=== PATIENT | female | born 1995 | race Caucasian/White ===

== ENCOUNTER → 2018-10-02 10:09 | Outpatient (CLI) | payer OTHER, SELFPAY ==
[2018-10-02 12:37] LABS: Absolute Lymphocyte Count 2.26 X10^3/ul (0.83-4.51); Absolute Neutrophil Count 4.6 X10^3/uL (2.0-7.7); Basophil# 0.03 X10^3/uL; Basophil% 0.4 % (0-1); Eosinophil# 0.09 X10^3/uL; Eosinophils% 1.2 % (0-5); Hematocrit 40.1 % (37-47); Hemoglobin 13.2 g/dl (12.0-15.0); Lymphocyte # 2.26 X10^3/ul (4.0); Lymphocyte % 30.1 % (19-41); Mean Corp Hgb Conc 32.9 g/gl (32-36); Mean Corpuscular Hgb 29.3 pg (27.0-32.0); Mean Corpuscular Volume 88.9 fL (81-99); Mean Platelet Vol. 9.9 fl (6.2-12.0); Monocyte# 0.55 X10^3/uL; Monocyte% 7.3 % (0-10); Neutrophil # 4.56 X10^3/uL (2.7-7.7); Neutrophil % 60.7 % (47-70); POSITIVE COUNT NO; POSITIVE DIFFERENTIAL NO; POSITIVE MORPHOLOGY NO; Platelet Count 249 K/mm3 (150-450); RBC Distribution Width CV 12.7 % (11.6-14.6); RBC Distribution Width SD 40.6 fl (35.1-43.9); Red Blood Count 4.51 M/mm3 (4.2-5.4); White Blood Count 7.5 K/mm3 (4.4-11.0)
[2018-10-02 12:45] LABS: ALB/GLOB Ratio 0.9 RATIO (0.9-2.4); AST(SGOT) 18 U/L (15-37); Alanine Aminotransfer ALT/SGPT 28 U/L (13-56); Albumin, Serum 3.5 g/dL (3.2-5.0); Alkaline Phosphatase 66 U/L (45-117); Anion Gap 11 (5-15); BUN 10 mg/dL (7-18); BUN/Creat Ratio 9.8 RATIO (10-20); CRP 6.25 mg/L (0.0-3.0); Calcium,Total 8.8 mg/dL (8.5-10.1); Chloride 106 mmol/L (98-107); Creatinine, Serum 1.02 mg/dL (0.55-1.02); EST Glomerular Filtration Rate 71 mL/min (>60); Est Glom Filt Rate - Afr Amer 86 mL/min (>60); Glucose 91 mg/dL (74-106); Potassium 3.6 mmol/L (3.5-5.1); Protein, Total 7.5 g/dL (6.4-8.2); Rheumatoid Factor < 10.0 IU/mL (<15); Sodium Level 142 mmol/L (136-145)
[2018-10-02 12:56] LABS: Erythrocyte Sedimentation Rate 14 mm/hr (0-20)
[2018-10-04 11:15] LABS: ANTINUCLEAR ANTIBODIES DIRECT Negative (Negative)
[2018-10-08 15:18] LABS: CCP IgG Antibodies 5 units (0-19); HEPATITIS B SURFACE AG Negative (Negative); HLA B27 Negative (.); Hep B Surface Antibodies Non Reactive (.); Hep C Antibodies <0.1 s/co ratio (0.0-0.9)
== END ==
PROVIDERS: Family Provider Family Medicine; PCP Family Medicine; Referring Provider Internal Medicine Rheumatology; Visit Provider Internal Medicine Rheumatology
DX: M06.4 Inflammatory polyarthropathy (principal); F41.9 Anxiety disorder, unspecified; F32.89 Other specified depressive episodes; E03.9 Hypothyroidism, unspecified; Z87.2 Personal history of diseases of the skin and subcutaneous tissue
CPT/HCPCS: 36415; 80053; 81374; 85025; 85652; 86038; 86140; 86200; 86431; 86706; 86803; 87340

== ENCOUNTER 2023-03-24 03:10 | Emergency (ER) | payer MEDICAID, SELFPAY ==
[2023-03-24 03:11] VITALS: PULSE 71; RESP 16; TEMP 36.4; O2SAT 100; BMI 29.9
[2023-03-24] MEDS: 0.9% Normal Saline 1,000 ML 999 ML IV (04:10)
[2023-03-24 04:25] LABS: Absolute Lymphocyte Count 2.83 X10^3/uL (0.83-4.51); Basophil# 0.06 X10^3/uL; Basophil% 0.5 % (0-1); Eosinophils% 0.8 % (0-5); Hematocrit 39.6 % (37-47); Hemoglobin 13.4 g/dL (12.0-15.0); Lymphocyte # 2.83 X10^3/ul (0.83-4.51); Lymphocyte % 21.3 % (19-41); Mean Corp Hgb Conc 33.8 g/dL (32-36); Mean Corpuscular Hgb 29.1 pg (27.0-32.0); Mean Corpuscular Volume 86.1 fL (81-99); Monocyte# 1.15 X10^3/uL; Monocyte% 8.7 % (0-10); NRBC Flagged by Analyzer 0 % (0-5); Neutrophil # 9.04 X10^3/uL (2.7-7.7); Platelet Count 253 K/mm3 (150-450); RBC Distribution Width CV 11.9 % (11.6-14.6); RBC Distribution Width SD 37.7 fl (35.1-43.9); White Blood Count 13.3 K/mm3 (4.4-11.0)
[2023-03-24 04:41] LABS: AST(SGOT) 15 U/L (15-37); Alanine Aminotransfer ALT/SGPT 22 U/L (13-56); Albumin, Serum 3.3 g/dL (3.2-5.0); Alkaline Phosphatase 69 U/L (45-117); Anion Gap 6 (5-15); BUN 10 mg/dL (7-18); BUN/Creat Ratio 12.8 RATIO (10-20); Bilirubin, Direct 0.14 mg/dL (0.00-0.30); Calcium,Total 8.7 mg/dL (8.5-10.1); Chloride 107 mmol/L (98-107); Creatinine, Serum 0.78 mg/dL (0.55-1.02); EST Glomerular Filtration Rate 94 mL/min (>60); Est Glom Filt Rate - Afr Amer 113 mL/min (>60); Estimated Creatinine Clearance 93.55 ml/min; Glucose 103 mg/dL (74-106); Lipase 41 U/L (13-75); Potassium 3.8 mmol/L (3.5-5.1); Protein, Total 7.3 g/dL (6.4-8.2); Sodium Level 137 mmol/L (136-145)
[2023-03-24 05:12] LABS: Mucous, Urine 0 SEEN /hpf (<or=2+)
[2023-03-24 05:21] LABS: Color, Urine Yellow (Yellow); Glucose, Dipstick Normal (Normal); Ketone-Dipstick 15 mg/dl (Negative); Leukocyte Esterase-Dipstick Negative /ul (Negative); Nitrite-Dipstick Negative (Negative); Occult Blood-Urine Negative /ul (Negative); Protein-Dipstick Negative (Negative); Specific Gravity, Urine 1.015 (1.002-1.030); Urine Bilirubin Dipstick Negative (Negative); Urine Clarity Clear (Clear); Urine Urobilinogen Normal (Normal); Urine pH 6.5 (5.0 - 8.0)
[2023-03-24 05:46] LABS: Bacteria 2+ /hpf (None Seen); Red Blood Cells-Urine 0-5 SEEN /hpf (0-5); Squamous Epithelial Cells - UA 0-5 SEEN /hpf (5-10); White Blood Cells 0-5 SEEN /hpf (0-5)
--- NOTE | 2023-03-24 06:00 | EDS_ITS ---
HPI History of Present Illness Chief Complaint: Abd Pain Informant: patient and spouse/S.O. Narrative Narrative: Patient is a 27-year-old female who is a G1, P0 approximately 6 weeks . She states for the last 5 to 7 days she has had generalized abdominal discomfort with bouts of nausea and loose stool/diarrhea. She denies any recent travel outside the country or livestock exposure. She does states she is currently on Keflex secondary to a potential UTI. She denies any known history of ulcerative colitis or Crohn's disease but does state mother has a history of Crohn's. Patient states that she was seen at an outside hospital earlier this week and had a transvaginal ultrasound documenting a within the uterus at approximately 6 weeks gestation. She states her symptoms have persisted however and she is concerned this is her gallbladder who comes in for evaluation. [facility] Medical History (Updated 03/25/23 @ 23:[address] Jaguar Brito, ) Hypothyroid Rheumatoid arthritis Home Medications docusate sodium 100 mg capsule (DOK) 100 mg PO DAILY ##10 02/27/17 [Rx Last Taken Unknown] hydrocodone-acetaminophen 5-325mg 5mg-325mg 1 - 2 tab PO Q4H PRN PRN Pain ##15 02/27/17 [Rx Last Taken Unknown] cephalexin 500 mg capsule 500 mg PO Q12H 03/24/23 [History Last Taken Unknown] levothyroxine 50 mcg tablet (Euthyrox) 50 mcg PO DAILY 03/24/23 [History Last Taken Unknown] Allergy/AdvReac Type Severity Reaction Status Date / Time No Known Allergies Allergy Verified 03/24/23 03:13 Social History Smoking Status: Never smoker [facility] ED Constitutional Constitutional ED: Denies chills or fever(s) ENT ENT ED: Denies sore throat Cardiovascular Cardiovascular: Denies chest pain Respiratory/Chest Respiratory/Chest: Denies cough or dyspnea Gastrointestinal Gastrointestinal: Reports abdominal pain, diarrhea and nausea; Denies vomiting Genitourinary Genitourinary ED: Denies dysuria Musculoskeletal Musculoskeletal: Denies myalgias Integumentary Denies rash Neurologic Neurologic: Denies headache(s) Hematologic/Lymphatic Hematologic/Lymphatic: Denies easy bleeding or easy bruising EXAM Physical Exam Const Vital Signs: 03/24/23 03:11 Temperature 97.5 F L Temperature Source Temporal Pulse Rate 71 Respiratory Rate 16 Pulse Ox 100 Oxygen Delivery Method Room Air Positive well nourished and well developed General Appearance ED: well developed HEENT Reports moist mucous membranes HEENT Narrative: No signs of infection in the posterior pharynx Eyes PERRL and EOMs intact bilaterally General Eye ED: Negative for scleral icterus Neck supple Resp normal respiratory effort and clear to auscultation bilaterally Cardio regular rate and regular rhythm Rate: other Other Details: Radial pulses are plus 2 out of 4 bilaterally are equal and symmetric GI non-distended GI Narrative: Abdomen is soft and nondistended with normal active bowel sounds. There is mild diffuse pain on palpation without voluntary guarding or rigidity. Negative Csoby sign. No pulsatile mass Auscultation: normoactive bowel sounds Palpation: soft Extremity normal to inspection Neuro oriented x3, CN's II-XII intact bilaterally and no sensory deficits noted Sensorium / Orientation: alert Motor Exam: strength 5/5 throughout Psych mental status grossly normal Skin no rashes or lesions noted General Skin Exam: Negative for jaundice MDM MDM MDM Narrative Medical decision making narrative: Patient presented to the ER with stable vitals and a soft nonsurgical abdomen. Patient had concern for gallbladder and is possibility based on her symptoms but at this time of night I cannot perform an ultrasound and the patient's [address] scan is not recommended either. Differential diagnosis includes intestinal discomfort/abdominal pain from early versus viral gastroenteritis versus pancreatitis or biliary colic or possibly development of autoimmune disease like ulcerative colitis or Crohn's disease. Patient blood work was obtained which shows leukocytosis which is nonspecific especially in which can lead to an elevated white blood cell count and otherwise normal liver enzymes and lipase. Patient's urine did show bacteria but there are no white blood cells present and patient does not have urinary symptoms and she is currently on Keflex and therefore I feel no reason to change this. At this time patient's abdomen is soft and nonsurgical her laboratory studies are unremarkable and therefore do not feel there is need for any further work-up especially as patient had a recent transvaginal ultrasound documenting normal early intrauterine . At this time as patient is concerned this could be gallbladder in nature should be given an outpatient order form for a gallbladder ultrasound but as physical exam and work-up at this time does not suggest any type of acute cholecystitis or pancreatitis or biliary colic she is otherwise safe for discharge History & Record Review Discussion w/independent historian: Patient and Significant other Lab Data Attestation: I reviewed the patient's lab results. Labs: Laboratory Results - last 24 hr 03/24/23 03/24/23 04:05 04:55 WBC 13.3 H RBC 4.60 Hgb 13.4 Hct 39.6 MCV 86.1 MCH 29.1 MCHC 33.8 RDW Std Deviation 37.7 RDW Coeff of Alexis 11.9 Plt Count 253 MPV 10.0 Immature Gran % (Auto) 0.700 Neut % (Auto) 68.0 Lymph % (Auto) 21.3 Weld % (Auto) 8.7 Eos % (Auto) 0.8 Baso % (Auto) 0.5 Absolute Neuts (auto) 9.0 H Absolute Lymphs (auto) 2.83 Nucleated RBC % 0 Sodium 137 Potassium 3.8 Chloride 107 Carbon Dioxide 24.0 Anion Gap 6 BUN 10 Creatinine 0.78 Estim Creat Clear Calc 93.55 Est GFR (MDRD) Af Amer 113 Est GFR (MDRD) Non-Af 94 BUN/Creatinine Ratio 12.8 Glucose 103 Calcium 8.7 Total Bilirubin 0.40 Direct Bilirubin 0.14 AST 15 ALT 22 Alkaline Phosphatase 69 Total Protein 7.3 Albumin 3.3 Globulin 4.0 Lipase 41 Urine Color Yellow Urine Clarity Clear Urine pH 6.5 Ur Specific [place] 1.015 Urine Protein Negative Urine Glucose (UA) Normal Urine Ketones 15 H Urine Occult Blood Negative Urine Nitrite Negative Urine Bilirubin Negative Urine Urobilinogen Normal Ur Leukocyte Esterase Negative Urine RBC 0-5 SEEN Urine WBC 0-5 SEEN Ur Squamous Epith Cells 0-5 SEEN Urine Bacteria 2+ Urine Mucus 0 SEEN Discharge Plan Triage Chief Complaint: Abd Pain ED Provider: Jaguar Brito Dx/Rx/DC Orders Clinical Impression: Nonspecific abdominal pain, First trimester Instructions: ED Abdominal Pain Unkn Cause Fem Prescriptions: No Action levothyroxine [Euthyrox] 50 mcg tablet 50 mcg PO DAILY cephalexin 500 mg capsule 500 mg PO Q12H hydrocodone-acetaminophen 1 TABLET tablet 1 - 2 tab PO Q4H PRN PRN (Reason: Pain) Qty: 15 0RF Hold Instructions: Ordered docusate sodium [DOK] 100 MG capsule 100 mg PO DAILY Qty: 10 0RF Hold Instructions: Ordered Stand Alone Forms: ED Work / School Excuse Other Ambulatory Orders: Gallbladder (Routine) Facility: [facility] - Location: [facility] Ordered By: Dr. Jaguar Brito Primary Care Provider: Care Physician,No Primary Referrals: Care Physician,No Primary [Primary Care Provider] - Activity Restrictions/Additional Instructions: Please obtain your outpatient ultrasound to further assess the cause of your symptoms. If pain persist despite a negative ultrasound please discuss evaluation by your ASSOCIATE PRODUCER and potential HIDA scan. If you have any further concerns please return to the hospital for repeat evaluation Disposition Disposition: Home, Self Care Discharge Date/Time: 03/24/23 06:08
[2023-03-24 06:07] VITALS: BP 122/64; PULSE 81; RESP 18; O2SAT 100
== END 2023-03-24 06:08 | disposition home or self-care (01) ==
PROVIDERS: Emergency Provider Emergency Medicine; Visit Provider Emergency Medicine
DX: O26.891 Other specified pregnancy related conditions, first trimester (principal); R10.9 Unspecified abdominal pain; Z3A.01 Less than 8 weeks gestation of pregnancy; O99.281 Endocrine, nutritional and metabolic diseases complicating pregnancy, first trimester; E03.9 Hypothyroidism, unspecified; Z79.899 Other long term (current) drug therapy
CPT/HCPCS: 80048; 80076; 81001; 83690; 85025; 96360; 96361; 99283; J7030; A4216

== ENCOUNTER → 2023-03-27 | Outpatient (CLI) | payer MEDICAID, SELFPAY ==
--- NOTE | 2023-03-27 08:06 | US_ITS ---
INDICATION: Abd Pain EXAMINATION: Ultrasound US Abdomen Limited (quadrant) TECHNIQUE: Rasheed scale and color doppler imaging was performed of the right upper quadrant. COMPARISON: None FINDINGS: LIVER: There is normal echotexture. No focal hepatic lesion. There is no free fluid. GALLBLADDER AND BILIARY TREE: No shadowing gallstone, pericholecystic fluid or gallbladder wall thickening is demonstrated. The proximal common bile duct measures 1.7 mm, which is within normal limits for the patient''s age. Sonographic Cosby''s sign: Negative. PANCREAS: No focal abnormality is demonstrated in the pancreas. No pancreatic ductal dilatation. RIGHT KIDNEY: 10.49 x 4.47 x 4.80 cm. Cortical thickness 1.62 cm. No hydronephrosis. US/Gallbladder IMPRESSION: No acute sonographic abnormality is demonstrated in the right upper quadrant. Electronically Signed: Keven Nair MD at 8:50 EDT Reading Location ID and State: [id number] / Unknown , Service support ,
--- NOTE | 2023-04-23 15:08 | US_ITS ---
EXAM: US PELVIS TRANSVAGINAL CLINICAL INDICATION: bleeding post D C TECHNIQUE: Transvaginal pelvic ultrasound was performed with grayscale and color Doppler imaging. Transvaginal imaging was used for better evaluation of the endometrium and adnexa. COMPARISON: No relevant prior studies available. FINDINGS: UTERUS/CERVIX: The uterus measures 9.4 x 4.5 x 6.6 cm. The endometrium measures 2.5 cm. The endometrium is heterogeneous in echogenicity. Anteverted. There is no uterine mass. RIGHT OVARY: The right ovary measures 2.6 x 2.5 x 1.9 cm. Blood flow is present in the right ovary. LEFT OVARY: Left ovary measures 2.2 x 1.8 x 1.6 cm. Blood flow is present in the left ovary. FREE FLUID: None. BLADDER: Empty bladder which cannot be evaluated with this probe. US/Transvaginal Non- IMPRESSION: Thickened heterogeneous endometrium which may represent retained products of conception. Per the ophthalmic technologist notes the patient''s nurse was notified of these findings. Electronically Signed: Dereck Renteria MD at 16:54 EDT ,
== END | disposition home or self-care (01) ==
LOC: US 08:04
PROVIDERS: Referring Provider Emergency Medicine; Visit Provider Emergency Medicine
DX: R10.9 Unspecified abdominal pain (principal)
CPT/HCPCS: 76705

== ENCOUNTER → 2023-04-12 | Outpatient (CLI) | payer MEDICAID, SELFPAY ==
--- NOTE | 2023-04-12 15:02 | US_ITS ---
STUDY: FIRST TRIMESTER OBSTETRICAL ULTRASOUND REASON FOR EXAM: Female, 27 years old threatened LMP: February 05, 2023. TECHNIQUE: Transabdominal TECHNICAL QUALITY: Adequate. PRIOR ULTRASOUND: None. FINDINGS: There is visualization of a single gestational sac in a normal intrauterine position. The mean sac diameter (MSD) measures 3.98 cm, indicating an estimated gestational age (EGA) of 9 weeks, 3 days. The gestational sac shape is within normal limits. There is no demonstrated yolk sac. The placenta is non-visualized. There is visualization of an embryo with no cardiac activity, consistent with intrauterine demise. The crown-rump length (CRL) measures 2.42 cm, indicating an estimated gestational age (EGA) of 8 weeks, 6 days. The estimated gestation age (EGA) by LMP is 9 weeks, 3 days. The estimated date of delivery (LEN) by LMP is November 12, 2023. The estimated gestation age (EGA) by US is weeks, 1 days. The estimated date of delivery (LEN) by US is November 14, 2023. The uterus measures 7.5 cm x 9.1 cm x 7 cm. There is no demonstrated uterine fibroid. The cervix is closed. The right ovary measures 1.5 cm x 1.2 cm x 1.3 cm. There is no right ovarian cyst. There is no visualized right adnexal mass or complex lesion. The left ovary measures 2.5 cm x 2.7 cm x 2.1 cm. There is no left ovarian cyst. There is no visualized left adnexal mass or complex lesion. There is no fluid in the cul de sac. US/Init OB < 14Wks US IMPRESSION: demise. Electronically Signed: Kolton Lundy MD at 15:35 EDT ,
== END | disposition home or self-care (01) ==
LOC: US 15:01
PROVIDERS: Referring Provider Obstetrics & Gynecology; Visit Provider Obstetrics & Gynecology
DX: O20.0 Threatened abortion (principal); Z3A.00 Weeks of gestation of pregnancy not specified
CPT/HCPCS: 76801

== ENCOUNTER 2023-04-13 08:00 | Day surgery (SDC) | payer MEDICAID, SELFPAY ==
[2023-04-13] VITALS (14 sets, daily range): BP systolic 107–131; BP diastolic 66–82; PULSE 54–76; RESP 16–18; TEMP 36.5–36.6; O2SAT 99–100; BMI 29.5
[2023-04-13] MEDS: Lactated Ringers 1,000 ML 15 ML IV (08:35)
[2023-04-13 09:10] LABS: Hematocrit 40.3 % (37-47); Hemoglobin 13.6 g/dL (12.0-15.0); Mean Corp Hgb Conc 33.7 g/dL (32-36); Mean Corpuscular Hgb 29.2 pg (27.0-32.0); Mean Corpuscular Volume 86.5 fL (81-99); Mean Platelet Vol. 9.8 fl (6.2-12.0); Platelet Count 237 K/mm3 (150-450); RBC Distribution Width CV 12.4 % (11.6-14.6); RBC Distribution Width SD 39.5 fl (35.1-43.9); Red Blood Count 4.66 M/mm3 (4.2-5.4); White Blood Count 9.3 K/mm3 (4.4-11.0)
--- NOTE | 2023-04-13 09:22 | HP.PCM_ITS ---
History and Physical R#: [id number] Acct: [id number] Name: MARIA ISABEL SOLITARIO Rep #: [id number] : 1995 Provider: Dr. Marycruz Lawrence MD Age/Sex: 27/F Location: [facility] [place] Status: Signed Intake Vital Signs 03/24/2303:11 04/12/2314:18 04/12/2314:20 Height 5 ft 4 in 5 ft 4 in 5 ft 4 in Weight: 171 lb 8 oz BMI 29.4 BP 132/87 H Intake Visit Reasons: NOB [facility] 02/05 Purchasing Internship Required: No Is patient in pain?: No Allergies No Known Allergies Allergy (Verified 04/12/23 14:29) Medications levothyroxine 50 mcg tablet (Euthyrox) 50 mcg PO DAILY 03/24/23 [History Confirmed 04/03/23] PNV 153-FA 400 mcg-om3 35 mg-dha 25 mg-epa 5 mg-fish oil chew tablet tab PO 04/03/23 [History Confirmed 04/03/23] ondansetron HCl 4 mg tablet 4 mg PO Q6H 04/03/23 [History Confirmed 04/03/23] omeprazole magnesium 2.5 mg oral suspension,delayed release (Prilosec) 10 mg PO DAILY 04/12/23 [History Confirmed 04/12/23] ondansetron 4 mg disintegrating tablet 4 mg PO DAILY #90 tabs 04/12/23 [Rx Confirmed 04/12/23] Last Menstrual Period: 02/05/23 Zika: Zika virus screening: Negative : No PFSH PFSH Medical History Hypothyroid Rheumatoid arthritis Surgical History [place] teeth extracted Family History Father Heart diseaseMother Crohn's disease Social History adopted: No household members: significant other current occupational status: unemployed pets and animals: Yes (Not managing litterbox) pets and animals: cat(s) history of recent travel: No sexually active: Yes Smoking Status: Never smoker alcohol intake: never substance use type: does not use well-balanced diet: about half the time caffeine: No eating out: rarely or never during the past year weight has: remained stable what type of physical activity do you participate in: none pierce/presybeterian: Roman Catholic seatbelt use: always do you feel safe at home: Yes additional social history: BF- [employer] History 1 Elective abortions Hx Para 0 Spontaneous abortions Hx # Term Pregnancies Ectopic pregnancies Hx # Pregnancies Multiple births # of living children HPI NOB LMP 02/05 Details: MARIA ISABEL SOLITARIO is a 27 year old who presents for New OB visit. she denies any bleeding or abnormal discharge. she had an ultrasound 2 weeks ago that showed viable IUP consistent with dating and small subchorionic hematoma. today on bedside abdominal ultrasound no color flow is seen within the pole and it's measuring 2.4 cm. formal scan done immediatley after and confirmed demise. OB Visit LEN Calculator Estimated Delivery Date Method Current WG Current Estimate 11/12/23 LMP (Certain) 9w 4d Comments: HIV: Urine Culture: Sequential Screen: NIPT Screen: Estimated Due Date: 11/12/23 Expected Delivery Route/Plan Labor Preferences- CB/BF classes: [] labor support person: [] labor intervention preferences: [] pain management options preferred: [] cut cord/dad catch: [] : [] PP control planned: [] discussed possible routes of delivery and associated risks: [] special requests: [] Specific Issue/Plans Covid status: [] Flu vaccine: [] Tdap vaccine: [] Rhogam: [] LARC form signed: [] Problem list reviewed and updated with the most current plan of care details and appropriate orders placed. Relevant counseling for the gestational age provided. Continue routine care and follow up unless otherwise noted in visit notes/problem list details Menstrual History Last Menstrual Period: 02/05/23 Reported LMP: definite Normal amount/duration: Yes On hormonal BC at conception: No Antepartum Record Genetic Screening: Congenital Heart Defect: Other, Neural Tube Defect: Partner (BF-Spina bifida), Hemoglobinopathy Or Carrier: Other, Cystic Fibrosis: Other, Chromosome Abnormality: Other, Harjit-Sachs: Other, Hemophilia: Other, Intellectual Disability/Autism: Other, Recurrent Loss/Stillbirth: Other, Other Structural Defect: Other, Other Genetic Disease: Other and Maternal Metabolic Disorder: Other Infection History: Live with someone with TB or Exposed to TB: No, Patient or Partner has history of Genital Herpes: No, Rash or Viral illness since last mentrual period: Yes (stomach virus), Prior GBS-Infected child: No, History of STD: No, HIV Infection: No, History of Hepatitis: No, Recent travel outside of [place]: No, Concern for hepatitis exposure: No and Varicella immune: Yes (immune) Medical History Medical History: Negative: Diabetes, Hypertension, Heart disease, Auto-immune disorder, Kidney disease/UTI, Neurologic/epilepsy, Psychiatric, Depression/ depression, Hepatitis/liver disease, Varicosities/phlebitis, Thyroid dysfunction, Trauma/domestic violence, History of blood transfusions, D (Rh) Sensitized, Pulmonary (e.g.,TB,Asthma), Seasonal allergies, Drug/latex allergies/reactions, Breast, Tank Truck Engine Mechanic surgery, Operations/hospitalizations, Anesthetic complications, History of abnormal pap, Uterine anomaly/janneth, Infertility, Anti-retroviral treatment, Relevant family history and Other ACOG First Trimester First Trimester: Discussed ROS Const Reports system reviewed and no additional complaints, except as documented, Reports fatigue and Denies fever(s) Eyes Reports system reviewed and no additional complaints, except as documented ENT Reports system reviewed and no additional complaints, except as documented Card Denies chest pain and Denies dyspnea Resp Reports system reviewed and no additional complaints, except as documented, Denies cough and Denies dyspnea GI Denies abdominal pain and Reports nausea Reports system reviewed and no additional complaints, except as documented Musc Reports system reviewed and no additional complaints, except as documented Skin/Breast Reports system reviewed and no additional complaints, except as documented Neuro Yes system reviewed and no additional complaints, except as documented Psych Reports system reviewed and no additional complaints, except as documented Endo Reports system reviewed and no additional complaints, except as documented and Reports fatigue Exam Const General: healthy appearing, comfortable and no acute distress Orientation: alert [facility] Head: normal to inspection, normocephalic and atraumatic Ears: hearing grossly normal bilaterally and external ears normal Nose: external nose normal and nares normal Mouth: oral mucosae normal Teeth and gingiva: dentition normal Eyes General: appearance normal, both eyes and all related structures Neck Neck: normal visual inspection, no lymphadenopathy and supple Thyroid: thyroid normal Resp Effort & Inspection: normal respiratory effort GI Inspection: normal to inspection Palpation: soft and no hepatosplenomegaly Skin General: no rashes or lesions noted Neuro Motor: muscle tone normal throughout and no movement abnormalities noted Extrem General: normal to inspection and full ROM Supplemental Info ACOG book given and patient encouraged to read about nutrition, exercise, weight gain, and food avoidance in . Coding Level of Care Code Off vis,new,level 4 Diagnoses Nausea and vomiting during O21.9 Hidradenitis suppurativa L73.2 Raynauds disease I73.00 Anxiety F41.9 Supervision of high-risk O09.90 Z34.90 Missed O02.1 Assessment and Plan Assessment and Plan (1) Nausea and vomiting during : Status: Resolved (2) Hidradenitis suppurativa: Status: Acute (3) Raynauds disease: Status: Acute (4) Anxiety: Status: Acute (5) Supervision of high-risk : Status: Resolved Comment: , LEN 11/12/23 SUSAN Bruce (6) : Status: Resolved Comment: discussed genetic & carrier testing (7) Missed : Status: Acute Comment: plan suction d and c, Teo, no testing indicated. Orders: Orders CBC W/Diff, Automated 04/03/23 Z34. - Encounter for supervision of normal , unspecified, unspecified trimester HIV - [facility] 04/03/23 Z34. - Encounter for supervision of normal , unspecified, unspecified trimester Type & Screen 04/03/23 Z34. - Encounter for supervision of normal , unspecified, unspecified trimester Rubella IgG 04/03/23 Z34. - Encounter for supervision of normal , unspecified, unspecified trimester Hepatitis C Antibody 04/03/23 Z34. - Encounter for supervision of normal , unspecified, unspecified trimester Hepatitis B Surface Antigen 04/03/23 Z34. - Encounter for supervision of normal , unspecified, unspecified trimester Culture, Urine 04/03/23 Z34. - Encounter for supervision of normal , unspecified, unspecified trimester Syphilis Antibodies 04/03/23 Z34. - Encounter for supervision of normal , unspecified, unspecified trimester Chlamydia/GC ESTEFANY aptima 04/03/23 Z34. - Encounter for supervision of normal , unspecified, unspecified trimester Init OB < 14Wks 04/12/23 O20.0 - Threatened Medications: Refilled ondansetron 4 mg PO DAILY 90 tabs 2RF O21.9 - Vomiting of , unspecified Plan After discussing the patient's diagnosis and treatment plan options, patient wishes to proceed with surgical management. I have discussed with the patient the risks, benefits, and alternatives of the procedure which include but are not limited to risks of anesthesia, bleeding, infection, possible damage to bowel, bladder, or surrounding vasculature which could lead to additional surgery to evaluate any complications. Patient agrees to procedure and wishes to proceed. ACOG/uptodate references given for additional information regarding procedure. UPDATE- I have seen the patient and performed any clinically relevant updates to the history and physical exam. Marycruz Lawrence MD
--- NOTE | 2023-04-13 10:30 | POC_PTH ---
PATIENT: MARIA ISABEL SOLITARIO LOC: [facility] [place] U#:[id number] AGE/SX: 27/F ROOM: RE04/13/[address]: Dr. Marycruz Lawrence MD : 1995 BED: DIS: 04/13/2023 SPEC #: [id number] RECD: 04/13/23 11:26 STATUS: ESAU DIONY #: [id number] NIGEL: 04/13/23 10:[address]: Marycruz Lawrence DEPT: SURGICAL PATHOLOGY RECD BY: Lesley Wilkerson ENTERED: 04/13/23 11:48 SP TYPE: PROD CONC OTHR DR: No Primary Care Phys Tissues: Product of conception, NOS Procedures: Surgery Specimen Level IV HEADER OPERATION: Suction dilation and curettage PRE-OP DIAGNOSIS: Nausea, vomiting, hidradenitis suppurative, high risk TISSUE SUBMITTED: Products of conception MICROSCOPIC DIAGNOSIS Products of conception, dilation and curettage: Decidua, gestational endometrium, immature chorionic villi and tissue (products of conception). FREDDIE:js 04/16/2023 COMMENT The results of Anora study will be reported separately. MICROSCOPIC DESCRIPTION Slides are reviewed. GROSS DESCRIPTION Received without fixative is one container labeled with the patient's name and designated products of conception. The specimen consists of multiple irregular fragments of pink-red hemorrhagic soft tissue that in aggregate measure 5.0 x 5.0 x 2.0 cm. No tissue is identified. A portion of tissue is submitted for Anora studies. Card Feeder tissue is submitted in two cassettes. / FREDDIE:js 04/13/2023 TC:5 CPT: 80634 ADDENDUM ADDENDUM ADDENDUM ADDENDUM ADDENDUM ADDENDUM ADDENDUM ADDENDUM 04/24/2023 09:33 ADDENDUM 04/24/2023 09:33 ADDENDUM 04/24/2023 09:33 ADDENDUM 04/24/2023 09:33 ADDENDUM 04/24/2023 09:33 ANORA MICROARRAY CHROMOSOME ANALYSIS WITH PARENTAL SUPPORT RESULT: Abnormal MICROARRAY RESULT: arr[hg 18] Yp11.31p11.2(3,558,510_6,162,166)x0 CLINICAL INTERPRETATION: Abnormal result. Please see complete report in e-chart or EMR
--- NOTE | 2023-04-13 10:46 | OP.PCM_ITS ---
Problems Associated Problem List Diagnoses (1) Missed : Report of Operation Date of Procedure: 04/13/23 Pre-Operative Diagnosis: see problem list Post-Operative Diagnosis: same Surgery/Procedure Performed:: Suction dilation and curettage Description of Surgical Findings:: no FHT present, Nonviable 9 weeks no FHT seen yesterday or today Surgeon: Marycruz Lawrence appliance parts counter clerk: None Type of Anesthesia: Local MAC Special Medications: none Specimen's removed: POC Drains: none Estimated Blood Loss (mL): 50 Fluids Replaced: crystalloid Description of Procedure: Patient was taken to the operating room and placed under MAC local anesthesia. She was prepped and draped in the normal sterile fashion the dorsal lithotomy position. Bladder was drained of clear urine and anterior lip of the cervix was grasped and the uterus sounded to 9cm. Cervix was progressively dilated to allow passage of a 9mm suction curette. Progressive passes were made removing the retained products of conception without complication. Sharp curettage confirmed complete removal of the retained products. All instruments were removed from the vagina and excellent hemostasis was noted and the patient was taken to recovery in stable condition. Grafts/Implants Used: none Complications none Admit VTE Documentation VTE Present on Admission: No VTE Mechan Device Prophylaxis: SCD's Procedures Urinary/Genital 52xxx-59xxx: [id number] Surg Trtmt missed Ab, 1TM
--- NOTE | 2023-04-13 10:47 | DCINST_ITS ---
Discharge Instructions Diet Discharge Diet: No restrictions Activity Discharge Activity: Return to Normal Activity, May Shower and May Take a Tub Bath (after 1 week) May resume sexual activity in: 1-2 weeks Weight Bearing Status: Weight bearing as tolerated Lifting Restrictions: none Dressing / Incision Call your doctor if you observe: Fever of 101 or Higher, Using more than 1 pad per hour, Shortness of breath and Uncontrolled pain Follow Up Care Please Follow Up With: Marycruz Lawrence MD When: Call [phone] to schedule appointment. Test Results: Test results from this visit will be discussed in further detail at your follow- up appointment, if applicable. Discharge Plan Admission Attending Provider: Marycruz Lawrence Primary Care Provider: Care PhysicianSagrario Primary Discharge Orders/Prescriptions Prescriptions: No Action PNV no.[id number] 400 mcg-35 mg- 25 mg-5 mg tablet,chewable PO ondansetron HCl 4 mg tablet 4 mg PO Q6H Prilosec 2.5 mg susp,delayed release for recon 10 mg PO DAILY ondansetron 4 mg tablet,disintegrating 4 mg PO DAILY Qty: 90 2RF levothyroxine [Euthyrox] 50 mcg tablet 50 mcg PO DAILY Referrals / Follow Up: Care Physician,No Primary [Primary Care Provider] - Disposition Disposition (needs filled in before D/C Order can be placed): Home, Self Care
[2023-04-13] MEDS: Lidocaine 1% (20 ml mdv) 20 ML Vial (10:54)
[2023-04-13] MEDS: Oxycodone/Apap 5/325 Tablet PO ×2 (12:43→13:27)
[2023-04-13] MEDS: Ketorolac 30 MG/ML Syringe IV (13:31)
[2023-04-16 12:02] LABS: Pathology Specimen OB SEE PATHOLOGY REPORT
== END 2023-04-13 13:58 | disposition home or self-care (01) ==
LOC: SDC 08:02 → AC 08:04
PROVIDERS: Referring Provider Obstetrics & Gynecology; Visit Provider Obstetrics & Gynecology
PROC: (CPT 59820; principal; 2023-04-13 10:15)
DX: O02.1 Missed abortion (principal); F41.9 Anxiety disorder, unspecified; I73.00 Raynaud's syndrome without gangrene; L73.2 Hidradenitis suppurativa; Z3A.09 9 weeks gestation of pregnancy; E03.9 Hypothyroidism, unspecified
CPT/HCPCS: 59820; 01965; 85027; 86850; 86900; 86901; 88305; J7120; A4216; J2405

== ENCOUNTER → 2023-04-23 | Outpatient (CLI) | payer MEDICAID, SELFPAY ==
[2023-04-23 15:39] LABS: Absolute Lymphocyte Count 2.93 X10^3/uL (0.83-4.51); Absolute Neutrophil Count 6.2 X10^3/uL (2.0-7.7); Basophil# 0.06 X10^3/uL; Basophil% 0.6 % (0-1); Eosinophil# 0.13 X10^3/uL; Eosinophils% 1.3 % (0-5); Hematocrit 39.9 % (37-47); Hemoglobin 12.7 g/dL (12.0-15.0); Lymphocyte # 2.93 X10^3/ul (0.83-4.51); Lymphocyte % 28.7 % (19-41); Mean Corp Hgb Conc 31.8 g/dL (32-36); Mean Corpuscular Hgb 28.5 pg (27.0-32.0); Mean Corpuscular Volume 89.7 fL (81-99); Mean Platelet Vol. 9.6 fl (6.2-12.0); Monocyte# 0.89 X10^3/uL; Monocyte% 8.7 % (0-10); NRBC Flagged by Analyzer 0 % (0-5); Neutrophil # 6.18 X10^3/uL (2.7-7.7); Neutrophil % 60.4 % (47-70); Platelet Count 309 K/mm3 (150-450); RBC Distribution Width CV 12.5 % (11.6-14.6); RBC Distribution Width SD 41.2 fl (35.1-43.9); Red Blood Count 4.45 M/mm3 (4.2-5.4); White Blood Count 10.2 K/mm3 (4.4-11.0)
[2023-04-23 16:06] LABS: hCG Titer Quant., Serum 144 mIU/mL (1-3)
== END | disposition home or self-care (01) ==
LOC: US 14:57
PROVIDERS: Referring Provider Obstetrics & Gynecology; Visit Provider Obstetrics & Gynecology
DX: O02.1 Missed abortion (principal)
CPT/HCPCS: 36415; 76830; 84702; 85025

== ENCOUNTER 2023-04-24 10:29 | Day surgery (SDC) | payer MEDICAID, SELFPAY ==
[2023-04-24] VITALS (8 sets, daily range): BP systolic 101–130; BP diastolic 60–92; PULSE 57–81; RESP 16; TEMP 36.8–37.2; O2SAT 98–100; BMI 29.1
--- NOTE | 2023-04-24 09:53 | PCM.HP.BLA ---
History and Physical Date of Admission: 04/24/23 Intake Vital Signs 04/23/2315:40 04/23/2315:51 Height 5 ft 4 in 5 ft 4 in Weight: 170 lb 2 oz BMI 29.2 BP 122/88 H Intake Visit Reasons: us Cigar Head Piercer Required: No Is patient in pain?: No Allergies No Known Allergies Allergy (Verified 04/23/23 15:51) Is last menstrual period known: No Post menopausal: No Patient : No : No PFSH Medical History Hypothyroid Rheumatoid arthritis Surgical History [place] teeth extracted Family History Father Heart diseaseMother Crohn's disease Social History adopted: No household members: significant other current occupational status: unemployed pets and animals: Yes (Not managing litterbox) pets and animals: cat(s) history of recent travel: No sexually active: Yes Smoking Status: Never smoker alcohol intake: never substance use type: does not use well-balanced diet: about half the time caffeine: No eating out: rarely or never during the past year weight has: remained stable what type of physical activity do you participate in: none pierce/temple: [employer]ism seatbelt use: always do you feel safe at home: Yes additional social history: - [employer] [facility] Details: MARIA ISABEL SOLITARIO is a 27 year old who presents for persistent bleeding postop, 2 pads per day no fevers, some cramping. she has been sexually active this last week but no foul discharge or odor, same sexual partner. on ultrasound today there is a thickened lining with suspicion of retained products post d and c. quant 144. cbc WNL and patient is afebrile Female Reproductive History Menopausal Symptoms: No night sweats History 1 Elective abortions Hx Para 0 Spontaneous abortions Hx # Term Pregnancies Ectopic pregnancies Hx # Pregnancies Multiple births # of living children ROS Const Constitutional: Denies fatigue, night sweats, weight gain or weight loss ENT ENT: Reports system reviewed and no additional complaints, except as documented Cardio Card: Denies chest pain Resp Resp: Denies cough or dyspnea GI GI: Reports as per HPI; Denies abdominal pain, constipation, nausea or vomiting : Denies nipple discharge, urinary frequency, urinary incontinence, urinary hesitancy, urinary urgency, vaginal discharge, vaginal dryness, vaginal odor or vaginal pruritus Musc Musc: Denies arthralgias, back pain or muscle weakness Skin Skin/Breast: Denies alopecia, change in hair, dry skin, breast mass, breast pain, breast skin changes or nipple discharge Neuro Neuro: Reports system reviewed and no additional complaints, except as documented Psych Psych: Reports system reviewed and no additional complaints, except as documented Endo Endo: Denies cold intolerance, excessive sweating, heat intolerance or polydipsia Elias/Lymph Hematologic/Lymphatic: Denies easy bleeding, Denies easy bruising and Denies lymphadenopathy Exam Const General: cooperative, healthy appearing, comfortable and no acute distress Orientation: alert HENIN Head: normal to inspection and normocephalic Ears: hearing grossly normal bilaterally and external ears normal Nose: external nose normal and nares normal Face and sinus: normal facial exam Neck Neck: normal visual inspection and no lymphadenopathy Thyroid: thyroid normal Chest Chest palpation & inspection: normal inspection of the chest Resp Effort & Inspection: normal respiratory effort Cardio Rate: regular rate GI Inspection: normal to inspection and non-distended Palpation: soft and no hepatosplenomegaly Musc Other: gross motor intact no deficits, full bilateral strength Skin General: no rashes or lesions noted Neuro General: patient alert, patient awake, moves all extremities and no focal motor deficits Motor: muscle tone normal throughout Extrem General: normal to inspection and no pedal edema Psych Appearance: grossly normal Mental Status: mental status grossly normal Affect: normal affect Speech and Movement: speech and movement normal Coding Level of Care Code Off vis,est,level 4 Diagnoses Retained products of conception Assessment and Plan Assessment and Plan (1) Retained products of conception: Status: Acute Comment: recommend repeat d and c, stable for schedule case and NPO status. reviewed bleeding precautions, doxycycline prescribed to start now, schedule case at 1230 tomorrow Medications: New doxycycline monohydrate 100 mg PO BID 28 caps 0RF Plan After discussing the patient's diagnosis and treatment plan options, patient wishes to proceed with surgical management. I have discussed with the patient the risks, benefits, and alternatives of the procedure which include but are not limited to risks of anesthesia, bleeding, infection, possible damage to bowel, bladder, or surrounding vasculature which could lead to additional surgery to evaluate any complications. Patient agrees to procedure and wishes to proceed. ACOG/uptodate references given for additional information regarding procedure.
[2023-04-24] MEDS: Lactated Ringers 1,000 ML 15 ML IV (10:52)
--- NOTE | 2023-04-24 12:30 | POC_PTH ---
PATIENT: MARIA ISABEL SOLITARIO LOC: [facility] [place] U#:[id number] AGE/SX: 27/F ROOM: RE04/24/[address]: Dr. Marycruz Lawrence MD : 1995 BED: DIS: 04/24/2023 SPEC #: [id number] RECD: 04/24/23 14:32 STATUS: ESAU REJefry #: [id number] NIGEL: 04/24/23 12:[address]: Marycruz Lawrence DEPT: SURGICAL PATHOLOGY RECD BY: David Decker ENTERED: 04/25/23 06:44 SP TYPE: PROD CONC OTHR DR: No Primary Care Phys Tissues: Product of conception, NOS Procedures: Surgery Specimen Level IV HEADER OPERATION: Suction dilation and curettage PRE-OP DIAGNOSIS: Missed TISSUE SUBMITTED: Products of conception, questionable retained products MICROSCOPIC DIAGNOSIS Endometrium, curettage: Transition endometrium with chronic endometritis. Rare trophoblastic cells identified. See comment. AM:js 04/26/2023 COMMENT Chorionic villi are not present. Clinical correlation is suggested. Reference is made to the patient's previous products of conception from 04/16/2023 ([id number]) in which chorionic villi were identified. MICROSCOPIC DESCRIPTION Slides are reviewed. GROSS DESCRIPTION Received in fixative is one container labeled with the patient's name and designated products of conception. The specimen consists of multiple irregular fragments of dark berman soft tissue that in aggregate measure 3.6 x 3.5 x 0.6 cm. parts are not grossly recognized. The specimen is submitted in its entirety in three cassettes. / AM:js 04/25/2023 TC:3 CPT: 25661
--- NOTE | 2023-04-24 13:09 | OP.PCM_ITS ---
Problems Associated Problem List Diagnoses (1) Retained products of conception: Report of Operation Date of Procedure: 04/24/23 Pre-Operative Diagnosis: see problem list Post-Operative Diagnosis: same Surgery/Procedure Performed:: Suction dilation and curettage Surgeon: Marycruz Lawrence tobacco drier operator: None Type of Anesthesia: Local MAC Special Medications: none Specimen's removed: POC Drains: none Estimated Blood Loss (mL): 50 Fluids Replaced: crystalloid Description of Procedure: Patient was taken to the operating room and placed under MAC local anesthesia. She was prepped and draped in the normal sterile fashion the dorsal lithotomy position. Bladder was drained of clear urine and anterior lip of the cervix was grasped and the uterus sounded to 7 cm. Cervix was progressively dilated to allow passage of a 7mm suction curette. Progressive passes were made removing the possible retained products of conception without complication. this was done under ultrasound guidance to ensure everything was removed. Sharp curettage confirmed complete removal of the possible retained products. All instruments were removed from the vagina and excellent hemostasis was noted and the patient was taken to recovery in stable condition. Grafts/Implants Used: none Complications none Admit VTE Documentation VTE Present on Admission: No VTE Mechan Device Prophylaxis: SCD's Procedures Urinary/Genital [id number]: [id number] Trmt of incomplete Ab, any TM
--- NOTE | 2023-04-24 13:12 | DCINST_ITS ---
Discharge Instructions Diet Discharge Diet: No restrictions Activity Discharge Activity: Return to Normal Activity, May Shower and May Take a Tub Bath (after 1 week) May resume sexual activity in: 1-2 weeks Weight Bearing Status: Weight bearing as tolerated Lifting Restrictions: none Dressing / Incision Call your doctor if you observe: Fever of 101 or Higher, Using more than 1 pad per hour, Shortness of breath and Uncontrolled pain Follow Up Care Please Follow Up With: Marycruz Lawrence MD When: Call [phone] to schedule appointment. Test Results: Test results from this visit will be discussed in further detail at your follow- up appointment, if applicable. Discharge Plan Admission Attending Provider: Marycruz Lawrence Primary Care Provider: Care PhysicianSagrario Primary Discharge Orders/Prescriptions Prescriptions: No Action PNV no.[id number] 400 mcg-35 mg- 25 mg-5 mg tablet,chewable PO ondansetron HCl 4 mg tablet 4 mg PO Q6H Prilosec 2.5 mg susp,delayed release for recon 10 mg PO DAILY ondansetron 4 mg tablet,disintegrating 4 mg PO DAILY Qty: 90 2RF doxycycline monohydrate 100 mg capsule 100 mg PO BID Qty: 28 0RF levothyroxine [Euthyrox] 50 mcg tablet 50 mcg PO DAILY Referrals / Follow Up: Care Physician,No Primary [Primary Care Provider] - Disposition Disposition (needs filled in before D/C Order can be placed): Home, Self Care
[2023-04-24] MEDS: Oxycodone/Apap 5/325 Tablet PO (14:15)
== END 2023-04-24 14:52 | disposition home or self-care (01) ==
LOC: SDC 10:30 → AC 10:31
PROVIDERS: Referring Provider Obstetrics & Gynecology; Visit Provider Obstetrics & Gynecology
PROC: (CPT 59812; principal; 2023-04-24 12:15)
DX: O03.4 Incomplete spontaneous abortion without complication (principal); E03.9 Hypothyroidism, unspecified
CPT/HCPCS: 59812; 01965; 88305; J7120; J2405

== ENCOUNTER → 2023-10-02 | Outpatient (CLI) | payer MEDICAID, SELFPAY ==
[2023-10-02 16:34] LABS: hCG Titer Quant., Serum 5333 mIU/mL (1-3)
== END | disposition home or self-care (01) ==
LOC: LAB 15:22
PROVIDERS: Referring Provider Obstetrics & Gynecology; Visit Provider Obstetrics & Gynecology
DX: N91.2 Amenorrhea, unspecified (principal)
CPT/HCPCS: 36415; 84702

== ENCOUNTER → 2023-10-04 | Outpatient (CLI) | payer MEDICAID, SELFPAY ==
--- OUTSIDE RECORDS SUMMARY | 2023-10-04 15:55 | XMS RPT_ITS | CCD ---
Author Name Unknown Address [address] [place] [address] Organization [facility] Care Team Providers Care Lead Software Qa Engineer Name Role Phone Chavez KAMARA, Zeus Grimm Unavailable [phone] Required, No Pcp Unavailable Unavailable Chato Bailey Unavailable Unavailable Ely Walter Unavailable Unavailable ELY WALTER Attending Unavailable Ms. Chato Bailey Attending Vaughn moore PHYSICIAN, PATIENT UNSURE Primary Care Physician Unavailable PHYSICIAN, PATIENT UNSURE Primary Care ABUNDIO Driscoll MD Attending UnavailKURT Parikh MD Attending Unavailable PHYSICIAN, PATIENT UNSURE Primary Care Ramirez Bee PA-C Primary Care Provider TAVON TOVAR Attending Unavailable RAMIREZ SOTO Referring Unavailable TAVON TOVAR Attending Unavailable RAMIREZ SOTO Referring Unavailable TAVON TOVAR Referring Unavailable TAVON TOVAR Attending Unavailable TAVON TOVAR Referring Unavailable TAVON TOVAR Attending Unavailable JAVIER DIAZ Admitting UnavailJAVIER Carbajal Attending UnavailTAVON Garcia Attending Unavailable PCP, NONE Referring Unavailable Allergies Allergy Classification Reported Allergen(s) Allergy Type Date of Onset Reaction(s) Facility (2 sources) Hydroxychloroquine Drug Allergy [facility] (2 sources) Hydroxychloroquine; Translations: [hydroxychloroquine] Drug Allergy [facility] Medications Current Medications Medication Drug Class(es) Dates Sig (Normalized) Sig (Original) amoxicillin 875 mg oral tablet (1 source) Penicillin-class Antibacterial Start: 11-09-2022 End: 11-15-2022 take 1 tablet by mouth twice daily amoxicillin 875 mg oral tablet ; 1 tab(s) orally 2 times a day x 7 days Quantity: 14 Refills: 0 Ordered: 09-Nov-2022 Chato Bailey Start: 09-Nov-2022 End: 15-Nov-2022 Generic Substitution Allowed Comments: Finish all this medication unless otherwise directed by prescriber. Completed/Discontinued Medications Medication Drug Class(es) Dates Sig (Normalized) Sig (Original) BUPROPION HCL (2 sources) Aminoketone Start: 02-27-2017 take 1 tablet by mouth once daily WELLBUTRIN XL 300 MG [id number] One tablet by mouth daily BUPROPION HCL [id number] Esthela Sanders Problems Active Problems Problem Classification Problem Date Documented Da te Episodic/Chronic Abdominal pain (8 sources) Right lower quadrant pain; Translations: [Left lower quadrant pain] Onset: 3 07-30-2023 Episodic Allergic reactions (1 source) Allergy status to other drugs, medicaments and biological substances status; Translations: [Allergy status to other drugs, medicaments and biological substances] Onset: 3 Episodic Anxiety disorders (1 source) Anxiety 02-16-2016 Chronic Esophageal disorders (4 sources) Gastroesophageal reflux disease without esophagitis; Translations: [Gastro-esophageal reflux disease without esophagitis] Onset: 3 07-30-2023 Chronic Gastrointestinal hemorrhage (4 sources) Hematochezia; Translations: [Melena] Onset: 3 07-30-2023 Episodic Hemorrhoids (2 sources) Thrombosed external hemorrhoids; Translations: [Other hemorrhoids] Onset: 7 03-05-2017 Episodic Mood disorders (1 source) Mixed anxiety and depressive disorder; Translations: [Other specified anxiety disorders] Onset: 7 02-27-2017 Chronic Nausea and vomiting (4 sources) Nausea; Translations: [Nausea] Onset: 3 07-30-2023 Episodic Other aftercare (1 source) Other exterminator (current) drug therapy; Translations: [Other fci (current) drug therapy] Onset: 3 Episodic Other complications of (2 sources) Abdominal pain in ; Translations: [Other specified complications of , unspecified as to episode of care or not applicable] 03-21-2023 Episodic Other complications of (1 source) Unspecified infection of urinary tract in , first trimester; Translations: [Unsp infct of urinary tract in , first trimester] Onset: 3 Episodic Other complications of (1 source) Other specified related conditions, second trimester; Translations: [Oth related conditions, second trimester] Onset: 3 Episodic Other gastrointestinal disorders (1 source) Diarrhea, unspecified; Translations: [Diarrhea, unspecified] Onset: 3 Episodic Other gastrointestinal disorders (2 sources) Abdominal bloating; Translations: [Abdominal distension (gaseous)] Onset: 3 07-30-2023 Episodic Other gastrointestinal disorders (1 source) Diarrhea Onset: 3 Episodic Residual codes; unclassified (1 source) Less than 8 weeks gestation of ; Translations: [Less than 8 weeks gestation of ] Onset: 3 Episodic Thyroid disorders (1 source) Hypothyroidism; Translations: [Hypothyroidism, unspecified] Onset: 7 02-27-2017 Chronic Thyroid disorders (1 source) Disorder of thyroid, unspecified; Translations: [Disorder of thyroid, unspecified] Onset: 3 Episodic Unclassified (2 sources) 6 WKS PREG. ABD PAIN 03-21-2023 Past or Other Problems Problem Classification Problem Date Documented Da te Episodic/Chronic Genitourinary symptoms and ill-defined conditions (1 source) H/O: urinary disease; Translations: [Personal history of other diseases of urinary system] Onset: 02-27-2017 02-27-2017 Episodic Other gastrointestinal disorders (1 source) Abdominal distension (gaseous); Translations: [Abdominal distension (gaseous)] Onset: 04-09-2023 Episodic Other upper respiratory infections (1 source) Acute pharyngitis, unspecified; Translations: [Acute pharyngitis, unspecified] Onset: 11-09-2022 Episodic Residual codes; unclassified (1 source) Pain, unspecified; Translations: [Pain, unspecified] Onset: 11-09-2022 Episodic Results Test Name Value Interpretation Reference Range Facil ity Vital Signs Date Time Vital Sign Value Performing Clinician Facility 07-30-2023 12:42-0500 Diastolic blood pressure 84 mm[Hg] Javier Diaz MD Work Phone: 5(765)[phone] [address] 07-30-2023 12:42-0500 Heart rate 53 /min Javier Diaz MD Work Phone: 9(626)[phone] [address] 07-30-2023 12:42-0500 Respiratory rate 21 /min Javier Diaz MD Work Phone: 2(644)920-585676 [place] [address] 07-30-2023 12:42-0500 SaO2% (BldA) [Mass fraction] 100 % Javier Diaz MD Work Phone: [phone])[phone] [place] [address] 07-30-2023 12:42-0500 Systolic blood pressure 132 mm[Hg] Javier Diaz MD Work Phone: 6(298)700-482476 [place] [address] 07-30-2023 12:20-0500 Body temperature 97.11 [degF] Javire Diaz MD Work Phone: 9(213)[phone] [place] [address] 07-30-2023 09:41-0500 Body height 162.6 cm Javier Diaz MD Work Phone: 3(357)329-113076 [place] [address] 07-30-2023 09:41-0500 Body mass index (BMI) [Ratio] 30.16 kg/m2 Javier Diaz MD Work Phone: 3(317)973-394876 [place] [address] 07-30-2023 09:41-0500 Body weight 79.7 kg Javier Diaz MD Work Phone: 0(419)340-817876 [place] [address] 03-21-2023 14:46-0400 Diastolic blood pressure 71 mm[Hg] No Pcp Required [facility] 03-21-2023 14:46-0400 Heart rate 61 /min No Pcp Required [facility] 03-21-2023 14:46-0400 Respiratory rate 16 /min No Pcp Required [facility] 03-21-2023 14:46-0400 SaO2% (BldA) [Mass fraction] 100 % No Pcp Required [facility] 03-21-2023 14:46-0400 Systolic blood pressure 120 mm[Hg] No Pcp Required [facility] 03-21-2023 13:01-0400 Body temperature 97.88 [degF] No Pcp Required [facility] 03-21-2023 13:01-0400 Body weight 78 kg No Pcp Required [facility] 11-09-2022 19:41-0500 Body height 162 cm No Pcp Required [facility] 11-09-2022 19:41-0500 Body temperature 98.78 [degF] No Pcp Required [facility] 11-09-2022 19:41-0500 Diastolic blood pressure 83 mm[Hg] No Pcp Required [facility] 11-09-2022 19:41-0500 Heart rate 108 /min No Pcp Required [facility] 11-09-2022 19:41-0500 Respiratory rate 18 /min No Pcp Required [facility] 11-09-2022 19:41-0500 SaO2% (BldA) [Mass fraction] 99 % No Pcp Required [facility] 11-09-2022 19:41-0500 Systolic blood pressure 130 mm[Hg] No Pcp Required [facility] 02-27-2017 12:50-0400 BMI (Body Mass Index) 23.31 kg/m2 Zeus Byrne MD [facility] Work Phone: 02-27-2017 12:50-0400 Body Temperature 98.3 [degF] Zeus Byrne MD [facility] Work Phone: 02-27-2017 12:50-0400 BP Diastolic 97 mm[Hg] Zeus Byrne MD [facility] Work Phone: 02-27-2017 12:50-0400 BP Systolic 134 mm[Hg] Zeus Byrne MD [facility] Work Phone: 02-27-2017 12:50-0400 Height 162.56 cm Zeus Byrne MD [facility] Work Phone: 02-27-2017 12:50-0400 Pulse (Heart Rate) 87 /min Zeus Byrne MD [facility] Work Phone: 02-27-2017 12:50-0400 Respiratory Rate 20 /min Zeus Byrne MD [facility] Work Phone: 02-27-2017 12:50-0400 Weight 61.6 kg Zeus Byrne MD [facility] Work Phone: Encounters Encounter Date Encounter Type Care Provider Facility Start: 07-30-2023 End: 07-30-2023 ambulatory JAVIER DIAZ [facility] Start: 07-30-2023 End: 07-30-2023 Subsequent hospital visit by physician Javier Diaz MD Work Phone: [facility] Start: 07-06-2023 End: 07-06-2023 ambulatory TAVON TOVAR [facility] Start: 06-28-2023 End: 06-28-2023 ambulatory KURT YAÑEZ MD Facility:A Start: 06-28-2023 End: 06-28-2023 SAME DAY STAY KURT YAÑEZ MD [facility] Start: 04-10-2023 ambulatory TAVON TOVAR [facility] Start: 04-09-2023 ambulatory TAVON TOVAR [facility] Start: 04-09-2023 End: 04-09-2023 ambulatory TAVON TOVAR [facility] Start: 04-06-2023 ambulatory TAVON TOVAR [facility] Start: 03-30-2023 End: 03-31-2023 Emergency department patient visit PATIENT UNSURE PHYSICIAN Facility:A Start: 03-21-2023 End: 03-21-2023 Emergency department patient visit Ely Walter [facility] Emergency 09 Start: 11-09-2022 End: 11-09-2022 Emergency department patient visit Chato Bailey [facility] Procedures Date Procedure Procedure Detail Performing Clinician Start: 07-30-2023 Urine test visual color cmprsn meths Tavon Tovar DATA SOFTWARE ENGINEER LINUX ENGINEER Work Phone: None (qualifier value) KURT YAÑEZ MD Plan of Treatment Date Care Activity Detail Author Start: 4 ANNUAL WELLNESS VISIT ANNUAL WELLNESS VISIT [facility] Start: 3 End: 3 COLONOSCOPY DIAGNOSTIC COLONOSCOPY DIAGNOSTIC Blood in stool Nausea Lower abdominal pain Bloating Gastroesophageal reflux disease without esophagitis 07/30/2023 11:37 AM EST [facility] Start: 3 End: 3 Esophagogastroduodenoscopy ESOPHAGOGASTRODUODENOSCOPY Blood in stool Nausea Lower abdominal pain Bloating Gastroesophageal reflux disease without esophagitis 07/30/2023 11:37 AM EST [facility] Start: 3 Influenza vaccination given INFLUENZA VACCINE (#1) [facility] Start: 1 Administration of diphtheria + tetanus + acellular pertussis vaccine DTAP/TDAP/TD VACCINE (7 - Td or Tdap) [facility] Start: 7 End: 7 Incise external hemorrhoid Incision of thrombosed hemorrhoid, external [facility] Work Phone: Start: 8 Depression screening using PHQ-9 (Patient Health Questionnaire 9) score DEPRESSION SCREENING [facility] Start: 7 Thyroid stimulating hormone measurement TSH [facility] Start: 6 COVID-19 VACCINE (#1) COVID-19 VACCINE (#1) [facility] Start: 6 Screening for malignant neoplasm of cervix PAP SMEAR [facility] Oxygen Therapy Nasal Cannula; Liters Per Minute: 2.0 LPM; RT may modify oxygen administration per policy: Yes During procedure Oxygen Therapy Nasal Cannula; Liters Per Minute: 2.0 LPM; RT may modify oxygen administration per policy: Yes During procedure Respiratory Care Routine Continuous until discontinued starting 07/30/2023 [facility] Payers Date Payer Category Payer Unknown [id number] 2022 Unknown 1995 Unknown [id number] 2.16.8 [id number] 1995 Unknown [id number] 2.16.8 [id number] 1995 Unknown [id number] 2.16.8 [id number] 1995 Unknown [id number] 2.16.8 [id number] 1995 Unknown [id number] 2.16. [id number] 1995 Unknown [id number] 2.16. [id number] 1995 Unknown [id number] 2.16. [id number] 1995 Unknown [id number] 2.16. [id number] 1995 Unknown [id number] 2.16. [id number] Social History Date Type Detail Facility [facility] Tobacco smoking consumption unknown [facility] Start: 04-09-2023 Tobacco smoking status Never smoked tobacco (finding) [facility] Sex Assigned At Sex [facility] Start: 04-09-2023 Tobacco use and exposure Smokeless tobacco non-user [facility] Start: 07-30-2023 Alcohol intake Current drinke r of alcohol (finding) [facility] Start: 07-03-2023 End: 07-30-2023 History of Social function [facility] Start: 07-03-2023 End: 07-30-2023 Tobacco use panel [facility] Brief social Pay for mortgage/rent Not on file [facility] Start: 07-06-2023 Alcohol Comment Socially [facility] Start: 1995 Sex Assigned At Not on file [facility] Clinical Notes 04-01-2023 to 07-30-2023 Javier Diaz MD - 07/30/2023 12:22 PM ESTDischarge InstructionsAttachmentsOp Note - Javier Diaz MD - 07/30/2023 12:17 PM Javier Moya MD - 07/30/2023 9:48 AM EST Note Date & Type Note Facility 07-30-2023 Hospital course Narrative Patient in endoscopy for procedure. Procedure performed without difficulty. See report for findings. Patient sent home after meeting discharge criteria and in good condition. Procedure: Esophagogastroduodenoscopy + Biopsy , Colonoscopy + Biopsy Complications: None Diagnosis: 1. Essentially normal EGD. Esophageal, gastric, and duodenal biopsies taken for eosinophilic esophagitis, H. pylori and celiac disease respectively. 2. Nonbleeding internal/external hemorrhoids otherwise normal terminal ileum and colonic mucosa. Right-sided colonic biopsies taken for microscopic colitis. Patient's GERD symptom has resolved. No evidence of GERD on EGD. Rectal bleeding is likely due to hemorrhoids in the absence of any other high risk lesion in the lower GI tract. Abdominal pain and chronic diarrhea could be due to IBS diarrhea. We will call patient with pathology report of biopsies taken. If no evidence of microscopic colitis, I recommend treating as IBS diarrhea with rifaximin 550 mg 3 times a day for 14 days. Repeat colonoscopy for colon cancer screening recommended at the age of 45 as per current guidelines. High-fiber diet for management of hemorrhoids. Javier Diaz MD 07/30/2023 12:23 PM documented in this encounter [facility] 07-30-2023 Hospital Discharge instructions Brendan Rock RN - 07/30/2023 12:22 PM EST SCOPE DISCHARGE INSTRUCTIONS You have had a procedure called EGD and Colonoscopy (Colon). Sedation: You were given medication for sedation. You may feel drowsy or tired for a few hours. We recommend you not be alone today. Please do not participate in activities that require good coordination or concentration such as driving a car or operating machinery for the next 24 hours. Protect yourself against falls, especially on the stairs or when walking long distances. Delay making business decisions that require the signing of legal documents for a minimum of 24 hours. No alcoholic beverages for 24 hours. Diet: Type of diet ordered No restriction.. You may eat and drink after 12:30 pm today. IV: If the IV site swells or bleeds, please apply direct pressure for 5 minutes. If the site becomes red, you may apply warm, moist compresses to the site. Please see a healthcare professional if you have concerns about your IV site. Abdomen: Following the procedure called colonoscopy, you may be aware of a bloated appearance and feeling of your abdomen. You may also experience some cramping or gas pains . The distention and discomfort should subside as you pass the air. If you are unable to pass the air, please contact your physician. Pain/Bleeding: You have had a biopsy taken performed during the procedure. You may expect a little bleeding from the site. Within the next 48 hours, if the bleeding becomes excessive or is accompanied by abdominal or chest pain, please call your physician immediately. If you are on aspirin or NSAIDS (non-steroidal anti-inflammatory drugs) then you can resume in tomorrow. If no appointment is required, your physician will contact you with any test results within 2 weeks and will send a note to your referring physician. If you have any questions, call your physician's office.[phone] Finding and Recommendation 1. Essentially normal EGD. Esophageal, gastric, and duodenal biopsies taken for eosinophilic esophagitis, H. pylori and celiac disease respectively. 2. Nonbleeding internal/external hemorrhoids otherwise normal terminal ileum and colonic mucosa. Right-sided colonic biopsies taken for microscopic colitis. Patient's GERD symptom has resolved. No evidence of GERD on EGD. Rectal bleeding is likely due to hemorrhoids in the absence of any other high risk lesion in the lower GI tract. Abdominal pain and chronic diarrhea could be due to IBS diarrhea. We will call patient with pathology report of biopsies taken. If no evidence of microscopic colitis, I recommend treating as IBS diarrhea with rifaximin 550 mg 3 times a day for 14 days. Repeat colonoscopy for colon cancer screening recommended at the age of 45 as per current guidelines. High-fiber diet for management of hemorrhoids. I have received and understand my discharge instructions. 07/30/2023 NURSE: Pesticide Use Medical Coordinator The following attachments cannot be sent through Care Everywhere.High-Fiber Diet (Greek Iranian)documented in this encounter [facility] 07-30-2023 Surgery Surgical operation note EGD / COLONOSCOPY Procedure Note Maria Isabel Solitario 07/30/2023 Pre-op Diagnosis for EGD: Blood in stool [K92.1] Nausea [R11.0] Lower abdominal pain [R10.30] Bloating [R14.0] Gastroesophageal reflux disease without esophagitis [K21.9] Pre-op Diagnosis for Colonoscopy: Blood in stool [K92.1] Nausea [R11.0] Lower abdominal pain [R10.30] Bloating [R14.0] Gastroesophageal reflux disease without esophagitis [K21.9] Post-op Diagnosis for EGD: Normal EGD Post-op Diagnosis for Colonoscopy: Hemorrhoids Procedures: Esophagogastroduodenoscopy + Biopsy, Colonoscopy + Biopsy Endoscope Insertion Time: Event Time Procedure/Incision Start 1156 Endoscope Removal Time: Event Time Procedure End 1216 Surgeon(s): Javier Diaz MD Consent: Informed consent was obtained prior to the procedure after a thorough explanation of the risks and benefits. The risks include but are not limited to bleeding, infection, allergic reaction to the medication, perforation, risk of sedation, and the risk of missing a small lesion. The patient and family understand, agrees and the consent was signed. Sedation: Monitored anaesthesia care(MAC) See Anesthesia note for full detail. Staff: Nut Feeder: Mari Ritchie RN Product Marketer: Silvana Abarca ST Scrub Person: Jennifer May MST EGD Procedure: The patient was placed in the left lateral decubitus postion and Cetacaine was sprayed into the oropharynx. The patient was given sedation in small increments until adequate sedation was achieved. The patient was continually monitored throughout the entire procedure. An Olympus Video gastroscope was inserted into the esophagus under direct vision and advanced to Second portion duodenum. Findings: Esophagus: Z-line/GE junction at 37 cm. Normal esophageal lumen and mucosa. Mid and proximal biopsies taken for eosinophilic esophagitis. Stomach: Normal gastric mucosa. Biopsies taken for H. pylori. Duodenum: Normal duodenal mucosa. Biopsies taken for celiac disease. Colonoscopy Procedure: The patient was repositioned. The Olympus Video Colonoscope was introduced per anus and advanced to the the terminal ileum. The patient's prep was Excellent. Findings: Terminal Ileum: Normal Cecum: Normal Ascending Colon: Normal Transverse Colon: Normal Right sided colonic biopsies taken for microscopic colitis. Descending Colon: Normal Sigmoid Colon: Normal Rectum: Nonbleeding internal/external hemorrhoids. Condition: The patient tolerated the procedures well and was sent to the recovery room in stable condition. Impression/Plan: 1. Essentially normal EGD. Esophageal, gastric, and duodenal biopsies taken for eosinophilic esophagitis, H. pylori and celiac disease respectively. 2. Nonbleeding internal/external hemorrhoids otherwise normal terminal ileum and colonic mucosa. Right-sided colonic biopsies taken for microscopic colitis. Patient's GERD symptom has resolved. No evidence of GERD on EGD. Rectal bleeding is likely due to hemorrhoids in the absence of any other high risk lesion in the lower GI tract. Abdominal pain and chronic diarrhea could be due to IBS diarrhea. We will call patient with pathology report of biopsies taken. If no evidence of microscopic colitis, I recommend treating as IBS diarrhea with rifaximin 550 mg 3 times a day for 14 days. Repeat colonoscopy for colon cancer screening recommended at the age of 45 as per current guidelines. High-fiber diet for management of hemorrhoids. Javier Diaz MD 07/30/2023 12:17 PM [facility] 07-30-2023 Miscellaneous Notes EGD / COLONOSCOPY Procedure Note Maria Isabel Solitario 07/30/2023 Pre-op Diagnosis for EGD: Blood in stool [K92.1] Nausea [R11.0] Lower abdominal pain [R10.30] Bloating [R14.0] Gastroesophageal reflux disease without esophagitis [K21.9] Pre-op Diagnosis for Colonoscopy: Blood in stool [K92.1] Nausea [R11.0] Lower abdominal pain [R10.30] Bloating [R14.0] Gastroesophageal reflux disease without esophagitis [K21.9] Post-op Diagnosis for EGD: Normal EGD Post-op Diagnosis for Colonoscopy: Hemorrhoids Procedures: Esophagogastroduodenoscopy + Biopsy, Colonoscopy + Biopsy Endoscope Insertion Time: Event Time Procedure/Incision Start 1156 Endoscope Removal Time: Event Time Procedure End 1216 Surgeon(s): Javier Diaz MD Consent: Informed consent was obtained prior to the procedure after a thorough explanation of the risks and benefits. The risks include but are not limited to bleeding, infection, allergic reaction to the medication, perforation, risk of sedation, and the risk of missing a small lesion. The patient and family understand, agrees and the consent was signed. Sedation: Monitored anaesthesia care(MAC) See Anesthesia note for full detail. Staff: Nut Feeder: Mari Ritchie RN Product Marketer: Silvana Abarca ST Scrub Person: Jennifer May MST EGD Procedure: The patient was placed in the left lateral decubitus postion and Cetacaine was sprayed into the oropharynx. The patient was given sedation in small increments until adequate sedation was achieved. The patient was continually monitored throughout the entire procedure. An Olympus Video gastroscope was inserted into the esophagus under direct vision and advanced to Second portion duodenum. Findings: Esophagus: Z-line/GE junction at 37 cm. Normal esophageal lumen and mucosa. Mid and proximal biopsies taken for eosinophilic esophagitis. Stomach: Normal gastric mucosa. Biopsies taken for H. pylori. Duodenum: Normal duodenal mucosa. Biopsies taken for celiac disease. Colonoscopy Procedure: The patient was repositioned. The Olympus Video Colonoscope was introduced per anus and advanced to the the terminal ileum. The patient's prep was Excellent. Findings: Terminal Ileum: Normal Cecum: Normal Ascending Colon: Normal Transverse Colon: Normal Right sided colonic biopsies taken for microscopic colitis. Descending Colon: Normal Sigmoid Colon: Normal Rectum: Nonbleeding internal/external hemorrhoids. Condition: The patient tolerated the procedures well and was sent to the recovery room in stable condition. Impression/Plan: 1. Essentially normal EGD. Esophageal, gastric, and duodenal biopsies taken for eosinophilic esophagitis, H. pylori and celiac disease respectively. 2. Nonbleeding internal/external hemorrhoids otherwise normal terminal ileum and colonic mucosa. Right-sided colonic biopsies taken for microscopic colitis. Patient's GERD symptom has resolved. No evidence of GERD on EGD. Rectal bleeding is likely due to hemorrhoids in the absence of any other high risk lesion in the lower GI tract. Abdominal pain and chronic diarrhea could be due to IBS diarrhea. We will call patient with pathology report of biopsies taken. If no evidence of microscopic colitis, I recommend treating as IBS diarrhea with rifaximin 550 mg 3 times a day for 14 days. Repeat colonoscopy for colon cancer screening recommended at the age of 45 as per current guidelines. High-fiber diet for management of hemorrhoids. Javier Diaz MD 07/30/2023 12:17 PM documented in this encounter [facility] 07-30-2023 Attending History and physical note H&P and chart were reviewed. Patient was seen, evaluated and examined today at bedside. No interval change in history or plan. Source Note - Tavon Tovar APRN LINUX ENGINEER - 07/06/2023 3:28 PM EDT DATE OF VISIT: 07/06/2023 JEWEL STRINGER: Javier Diaz MD REQUESTING PROVIDER: None Pcp PRIMARY CARE PROVIDER: No primary care provider on file. Chief Complaint Patient presents with Abdominal Pain Bloated Diarrhea With extreme pain in the past Nausea Gastroesophageal Reflux Hematochezia Around 3 months ago ENDOSCOPIC HISTORY: She has never had EGD and colonoscopy. Abdominal surgeries: None No family history of colon cancer, colon polyps, esophageal or gastric cancer. HISTORY OF PRESENT ILLNESS: Maria Isabel Solitario is a 27 y.o. year-old female here today for follow up on her abdominal pain and diarrhea. She was previously seen in March. At that time she was 10 weeks . She was seen at the ER in [place] with abdominal pain and bloating. She had an US of her GB that was unremarkable. Her abdominal pain felt like cramping. I recommended that she follow up with her OB. Sadly she had a miscarriage. Today she states she is still having abdominal cramp, pain is around waist line. Empty pain with sharp pains. Worse if she eats. She states nothing makes the pain better or worse. She gets nausea all the time. Denies vomiting. She states that she has reflux at least 2-3 times a week. She does not take anything for this. She gets bloating. Worse with eating. When seen previously she was having some melena. None since before the miscarriage. Patient denies any upper GI complaints including dysphagia, chest pain or epigastric pain, changes in weight or appetite. Patient denies any lower GI complaints such as diarrhea or constipation. Her bowels move every other day. No blood in the stool or melena. Denies alcohol, tobacco, or drug use. Caffeine use None No recent joint replacements in the past year. Not currently taking antibiotics. Not on ASA or Blood thinners PAST MEDICAL HISTORY: She has a past medical history of Anxiety, Depression, Encounter for routine gynecological examination, Gastrointestinal disease, and GERD (gastroesophageal reflux disease). PAST SURGICAL HISTORY: She has a past surgical history that includes [place] tooth extraction. MEDICATIONS: Outpatient Medications Marked as Taking for the 07/06/23 encounter (Office Visit) with Tavon Tovar APRN CNP Medication Sig Dispense Refill levothyroxine 50 MCG tablet Take 1 tablet by mouth Daily. Allergies Allergen Reactions Hydroxychloroquine Hives SOCIAL HISTORY She reports that she has never smoked. She has never used smokeless tobacco. She reports current alcohol use. She reports that she does not currently use drugs. FAMILY HISTORY Family History Problem Relation Age of Onset Crohn's disease Mother Heart disease Father Ulcerative colitis Sister Colon cancer Neg Hx Colon polyps Neg Hx Esophageal cancer Neg Hx Stomach cancer Neg Hx REVIEW OF SYSTEMS: Review of Systems Constitutional: Negative for chills, fever, malaise/fatigue and weight loss. HENT: Negative for hearing loss and tinnitus. Eyes: Negative for blurred vision, double vision and photophobia. Respiratory: Negative for cough, sputum production and shortness of breath. Cardiovascular: Negative for chest pain, palpitations and leg swelling. Gastrointestinal: Positive for abdominal pain, heartburn and nausea. Negative for blood in stool, constipation, diarrhea, melena and vomiting. Genitourinary: Negative for dysuria, frequency and urgency. Musculoskeletal: Negative for back pain, falls, joint pain, myalgias and neck pain. Skin: Negative for itching and rash. Neurological: Positive for headaches. Negative for dizziness, tingling and weakness. Endo/Heme/Allergies: Does not bruise/bleed easily. Psychiatric/Behavioral: Negative for depression. PHYSICAL EXAMINATION: Vital Signs: Vitals: 07/06/23 1455 BP: 126/84 Pulse: 88 Temp: 98.1 F (36.7 C) SpO2: 98% Wt Readings from Last 3 Encounters: 07/06/23 79.4 kg (175 lb) 04/09/23 78.2 kg (172 lb 5 oz) Physical Exam Constitutional: Appearance: Normal appearance. HENT: Nose: Nose normal. Eyes: Pupils: Pupils are equal, round, and reactive to light. Cardiovascular: Rate and Rhythm: Normal rate and regular rhythm. Pulses: Normal pulses. Heart sounds: Normal heart sounds. No murmur heard. No friction rub. Pulmonary: Effort: Pulmonary effort is normal. Breath sounds: Normal breath sounds. Abdominal: General: Bowel sounds are normal. There is no distension. Tenderness: There is no abdominal tenderness. Musculoskeletal: General: No swelling. Normal range of motion. Cervical back: Normal range of motion. Skin: General: Skin is warm and dry. Neurological: General: No focal deficit present. Mental Status: She is alert and oriented to person, place, and time. Psychiatric: Mood and Affect: Mood normal. LABORATORY DATA: Lab Results Component Value Date WHITEBLOODCE 11.7 (H) 04/09/2023 HGB 14.1 04/09/2023 HCT 40.8 04/09/2023 MCV 85.5 04/09/2023 MCHC 34.6 04/09/2023 PLT 249 04/09/2023 Lab Results Component Value Date CREATININE 0.57 04/09/2023 BUN 10 04/09/2023 NA 134 (L) 04/09/2023 K 4.2 04/09/2023 CL 101 04/09/2023 CO2 22 04/09/2023 No results found for: GFR No results found for: INR Lab Results Component Value Date ALT 19 04/09/2023 AST 22 04/09/2023 ALKPHOS 64 04/09/2023 BILITOT 0.4 04/09/2023 ASSESSMENT: 1. Blood in stool 2. Nausea 3. Lower abdominal pain 4. Bloating 5. Gastroesophageal reflux disease without esophagitis PLAN: We will schedule colonoscopy with Dr. Diaz in [place]. We will use [employer] for prep. MAC sedation. The risks were reviewed with the patient including bleeding, perforation, adverse events of sedation, infections, and missing lesions. Hold NSAID's for 5 days prior to procedure Scheduling staff to give patient pre-procedure written instructions. Start Omeprazole 40 mg PO daily. Reviewed above labs Further recommendations pending above testing. Signed: Tavon Tovar APRN CNP-C 07/06/2023 3:28 PM [facility] 07-30-2023 History and physical note H&P and chart were reviewed. Patient was seen, evaluated and examined today at bedside. No interval change in history or plan. Source Note - Tavon Tovar APRN CNP - 07/06/2023 3:28 PM EDT DATE OF VISIT: 07/06/2023 JEWEL STRINGER: Javier Diaz MD REQUESTING PROVIDER: None Pcp PRIMARY CARE PROVIDER: No primary care provider on file. Chief Complaint Patient presents with Abdominal Pain Bloated Diarrhea With extreme pain in the past Nausea Gastroesophageal Reflux Hematochezia Around 3 months ago ENDOSCOPIC HISTORY: She has never had EGD and colonoscopy. Abdominal surgeries: None No family history of colon cancer, colon polyps, esophageal or gastric cancer. HISTORY OF PRESENT ILLNESS: Maria Isabel Solitario is a 27 y.o. year-old female here today for follow up on her abdominal pain and diarrhea. She was previously seen in March. At that time she was 10 weeks . She was seen at the ER in [place] with abdominal pain and bloating. She had an US of her GB that was unremarkable. Her abdominal pain felt like cramping. I recommended that she follow up with her OB. Sadly she had a miscarriage. Today she states she is still having abdominal cramp, pain is around waist line. Empty pain with sharp pains. Worse if she eats. She states nothing makes the pain better or worse. She gets nausea all the time. Denies vomiting. She states that she has reflux at least 2-3 times a week. She does not take anything for this. She gets bloating. Worse with eating. When seen previously she was having some melena. None since before the miscarriage. Patient denies any upper GI complaints including dysphagia, chest pain or epigastric pain, changes in weight or appetite. Patient denies any lower GI complaints such as diarrhea or constipation. Her bowels move every other day. No blood in the stool or melena. Denies alcohol, tobacco, or drug use. Caffeine use None No recent joint replacements in the past year. Not currently taking antibiotics. Not on ASA or Blood thinners PAST MEDICAL HISTORY: She has a past medical history of Anxiety, Depression, Encounter for routine gynecological examination, Gastrointestinal disease, and GERD (gastroesophageal reflux disease). PAST SURGICAL HISTORY: She has a past surgical history that includes [place] tooth extraction. MEDICATIONS: Outpatient Medications Marked as Taking for the 07/06/23 encounter (Office Visit) with Tavon Tovar APRN CNP Medication Sig Dispense Refill levothyroxine 50 MCG tablet Take 1 tablet by mouth Daily. Allergies Allergen Reactions Hydroxychloroquine Hives SOCIAL HISTORY She reports that she has never smoked. She has never used smokeless tobacco. She reports current alcohol use. She reports that she does not currently use drugs. FAMILY HISTORY Family History Problem Relation Age of Onset Crohn's disease Mother Heart disease Father Ulcerative colitis Sister Colon cancer Neg Hx Colon polyps Neg Hx Esophageal cancer Neg Hx Stomach cancer Neg Hx REVIEW OF SYSTEMS: Review of Systems Constitutional: Negative for chills, fever, malaise/fatigue and weight loss. HENT: Negative for hearing loss and tinnitus. Eyes: Negative for blurred vision, double vision and photophobia. Respiratory: Negative for cough, sputum production and shortness of breath. Cardiovascular: Negative for chest pain, palpitations and leg swelling. Gastrointestinal: Positive for abdominal pain, heartburn and nausea. Negative for blood in stool, constipation, diarrhea, melena and vomiting. Genitourinary: Negative for dysuria, frequency and urgency. Musculoskeletal: Negative for back pain, falls, joint pain, myalgias and neck pain. Skin: Negative for itching and rash. Neurological: Positive for headaches. Negative for dizziness, tingling and weakness. Endo/Heme/Allergies: Does not bruise/bleed easily. Psychiatric/Behavioral: Negative for depression. PHYSICAL EXAMINATION: Vital Signs: Vitals: 07/06/23 1455 BP: 126/84 Pulse: 88 Temp: 98.1 F (36.7 C) SpO2: 98% Wt Readings from Last 3 Encounters: 07/06/23 79.4 kg (175 lb) 04/09/23 78.2 kg (172 lb 5 oz) Physical Exam Constitutional: Appearance: Normal appearance. HENT: Nose: Nose normal. Eyes: Pupils: Pupils are equal, round, and reactive to light. Cardiovascular: Rate and Rhythm: Normal rate and regular rhythm. Pulses: Normal pulses. Heart sounds: Normal heart sounds. No murmur heard. No friction rub. Pulmonary: Effort: Pulmonary effort is normal. Breath sounds: Normal breath sounds. Abdominal: General: Bowel sounds are normal. There is no distension. Tenderness: There is no abdominal tenderness. Musculoskeletal: General: No swelling. Normal range of motion. Cervical back: Normal range of motion. Skin: General: Skin is warm and dry. Neurological: General: No focal deficit present. Mental Status: She is alert and oriented to person, place, and time. Psychiatric: Mood and Affect: Mood normal. LABORATORY DATA: Lab Results Component Value Date WHITEBLOODCE 11.7 (H) 04/09/2023 HGB 14.1 04/09/2023 HCT 40.8 04/09/2023 MCV 85.5 04/09/2023 MCHC 34.6 04/09/2023 PLT 249 04/09/2023 Lab Results Component Value Date CREATININE 0.57 04/09/2023 BUN 10 04/09/2023 NA 134 (L) 04/09/2023 K 4.2 04/09/2023 CL 101 04/09/2023 CO2 22 04/09/2023 No results found for: GFR No results found for: INR Lab Results Component Value Date ALT 19 04/09/2023 AST 22 04/09/2023 ALKPHOS 64 04/09/2023 BILITOT 0.4 04/09/2023 ASSESSMENT: 1. Blood in stool 2. Nausea 3. Lower abdominal pain 4. Bloating 5. Gastroesophageal reflux disease without esophagitis PLAN: We will schedule colonoscopy with Dr. Diaz in [place]. We will use [employer] for prep. MAC sedation. The risks were reviewed with the patient including bleeding, perforation, adverse events of sedation, infections, and missing lesions. Hold NSAID's for 5 days prior to procedure Scheduling staff to give patient pre-procedure written instructions. Start Omeprazole 40 mg PO daily. Reviewed above labs Further recommendations pending above testing. Signed: Tavon Tovar APRN LINUX ENGINEER-C 07/06/2023 3:28 PM documented in this encounter [facility] 04-01-2023 Note . MICRO - Microbiology PROCEDURE: Urine Culture [*1] SOURCE: Urine, Clean Catch BODY SITE: COLLECTED DATE/TIME: 03/30/2023 21:56 EDT RECEIVED DATE/TIME: 03/30/2023 22:15 EDT START DATE/TIME: 03/30/2023 22:15 EDT FREE TEXT SOURCE: FINAL REPORTS Final Report [] Verified Date/Time/Personnel: 04/01/2023 07:36 EDT 10,000 - 50,000 cfu/ml Mixed growth consistent with normal urogenital [place]. PRELIMINARY REPORTS Preliminary Report [] Verified Date/Time/Personnel: 03/31/2023 09:08 EDT Culture results pending. Performing Locations *1: This test was performed at: [facility], [address] [place] [address], [facility] , [facility] ([place]) Evaluation + Plan note No data available for this section [facility] No data available for this section [facility] Progress note No data available for this section [facility] Summary Purpose Family History No Family History Records FoundNo Family History Records Found No data available for this section No Family History Records FoundNo Family History Records FoundNo Family History Records Found Advance Directives No Advanced Directives Records FoundNo Advanced Directives Records FoundNo Advanced Directives Records FoundNo Advanced Directives Records FoundNo Advanced Directives Records Found Reason for Referral * abd pain in , diarrheaabd pain in , diarrhea No data available for this section Additional Source Comments INFORMATION SOURCE (unrecogn ized section and content) DATE CREATED AUTHOR AUTHOR'S ORGANIZ ATION 03/27/2023 [facility] DATE CREATED AUTHOR AUTHOR'S ORGANIZ ATION 07/02/2023 [facility] ([place] DATE CREATED AUTHOR AUTHOR'S ORGANIZ ATION 07/15/2023 [facility] DATE CREATED AUTHOR AUTHOR'S ORGANIZ ATION 08/03/2023 [facility] <item><item> Privacy Markings (unrecogniz ed section and content) Section Author: Aiyana Amor PROHIBITION ON REDISCLOSURE OF CONFIDENTIAL INFORMATION This notice accompanies a disclosure of information concerning a client made to you with the consent of such client. Section Author: Aiyana Amor PROHIBITION ON REDISCLOSURE OF CONFIDENTIAL INFORMATION This notice accompanies a disclosure of information concerning a client made to you with the consent of such client. Patient Care team informatio n (unrecognized section and content) Reason for Visit (unrecogniz ed section and content) Referral ID Status Reason Start Date Expiration Date V isits Requested Visits Authorized [id number] New Request 07/08/2023 08/08/2024 1 1 Continuous Active and Recently Administ ered Medications (unrecognized section and content) PRN Medication Order 07/28/2023 07/29/2023 07/30/2023 Sodium Chloride Flush (SALINE FLUSH) 0.9 % injection 1-10 mL 1-10 mL, Intravenous, DAILY PRN, Line Care, Starting on 07/30/23 at 0914, Until Discontinued, Pre-op (OPS) FOR RECORDS PERTAINING TO PATIENTS WHO ARE OR HAVE BEEN ENROLLED IN A CHEMICAL DEPENDENCY/SUBSTANCEABUSE PROGRAM, SOME INFORMATION MAY BE OMITTED. This clinical summary was aggregated from multiple sources. Caution should be exercised in using it in the provision of clinical care. This summary normalizes information from multiple sources, and as a consequence, information in this document may materially change the coding, format and clinical context of patient data. In addition, data may be omitted in some cases. CLINICAL DECISIONS SHOULD BE BASED ON THE PRIMARY CLINICAL RECORDS. [facility] [employer] [facility]. provides no warranty or guarantee of the accuracy or completeness of information in this document.
[2023-10-04 17:34] LABS: hCG Titer Quant., Serum 9177 mIU/mL (1-3)
== END | disposition home or self-care (01) ==
LOC: LAB 15:30
PROVIDERS: Referring Provider Obstetrics & Gynecology; Visit Provider Obstetrics & Gynecology
DX: N91.2 Amenorrhea, unspecified (principal)
CPT/HCPCS: 36415; 84702

== ENCOUNTER 2023-10-14 10:09 | Emergency (ER) | payer MEDICAID, SELFPAY ==
[2023-10-14 10:12] VITALS: BP 133/84; PULSE 81; RESP 16; TEMP 36.4; O2SAT 98; BMI 30.1
--- NOTE | 2023-10-14 10:36 | ED.VIS.FEGU ---
HPI HPI - Female History of Present Illness Chief Complaint: Vag Bld, Preg PFSH PFSH Medical History FH: spina bifida Hypothyroid Rheumatoid arthritis Seasonal allergies Home Medications levothyroxine 50 mcg tablet (Euthyrox) 50 mcg PO DAILY 03/24/23 [History Last Taken Unknown] PNV 153-FA 400 mcg-om3 35 mg-dha 25 mg-epa 5 mg-fish oil chew tablet tab PO 04/03/23 [History Last Taken Unknown] ondansetron 4 mg disintegrating tablet 4 mg PO DAILY #90 tabs 10/11/23 [Rx Last Taken Unknown] omeprazole magnesium 20 mg tablet,delayed release (Prilosec OTC) 20 mg PO DAILY #30 tabs 10/12/23 [Rx Last Taken Unknown] doxylamine 10 mg-pyridoxine (vit B6) 10 mg tablet,delayed release (Diclegis) 2 tab PO QHS 30 days #60 tabs 10/14/23 [Rx Last Taken Unknown] promethazine 25 mg tablet 25 mg PO TID PRN nausea and vomiting 7 days #21 tabs 10/14/23 [Rx Last Taken Unknown] Allergy/AdvReac Type Severity Reaction Status Date / Time hydroxychloroquine Allergy Hives Verified 10/14/23 10:12 [From Plaquenil] Family History Father Heart disease Mother Crohn's disease Surgical History H/O colonoscopy H/O dilation and curettage [place] teeth extracted Social History adopted: No household members: significant other current occupational status: unemployed pets and animals: Yes (Not managing litterbox) pets and animals: cat(s) history of recent travel: No sexually active: Yes Smoking Status: Never smoker alcohol intake: never substance use type: does not use well-balanced diet: daily or most days caffeine: No eating out: 1-3 times/week during the past year weight has: remained stable what type of physical activity do you participate in: none pierce/mormonism: Jain seatbelt use: always do you feel safe at home: Yes additional social history: BF- [email or web address] EXAM Physical Exam Const Vital Signs: 10/14/23 10:12 10/14/23 10:41 Temperature 97.6 F L Temperature Source Temporal Pulse Rate 81 81 Respiratory Rate 16 16 Blood Pressure 133/84 H 115/100 H Blood Pressure Mean 100 105 Pulse Ox 98 100 Oxygen Delivery Method Room Air Room Air MDM MDM MDM Narrative Medical decision making narrative: HISTORY OF PRESENT ILLNESS: 28-year-old female presents with vaginal bleeding and cramping that started this morning. She notes history of miscarriage. States he is approximately 6 weeks . She further states she has had 1 week of nonbloody diarrhea. States 1 day of worsening mid abdominal pain, cramping. States she saw her OB on Sunday, ultrasound was performed that time showed intrauterine with a heart rate of 111 bpm. Denies vomiting or nausea. Denies syncope. Notes she feels diffusely weak. No recent travel or antibiotics. No urinary complaint such as dysuria frequency or urgency. Notes history of prior miscarriage. She is a G2, P0. REVIEW OF SYSTEMS: Pertinent positives: Vaginal bleeding, abdominal cramping, diarrhea, diffuse weakness Pertinent negatives: syncope, CP, SOB PHYSICAL EXAM: Nursing triage notes reviewed, Vital signs reviewed Constitutional: please see mdm HENT: MMM Eyes: Pupils equal round and reactive to light, Extraocular muscles intact Neck: No stridor, no JVD, full neck ROM Lungs: Clear to auscultation, No wheezing or rales. No increased work of breathing, no conversational dyspnea, no accessory muscle use, no nasal flaring. No respiratory distress noted Heart: Regular rate and rhythm, No murmurs, No rubs and No gallops, 2+ distal pulses (radial, femoral, posterior tibial) in all extremities Abdomen: Soft, there is no tenderness, rigidity, rebound or guarding, no obvious peritoneal signs, no palpable pulsatile abdominal masses, no auscultated abdominal bruit : No CVAT, deferred by patient Extremities: No edema Neuro: No focal neurological deficits, cranial nerves II through XII intact, 5/5 strength in all extremities. Intact sensation to light touch in all extremities, 2+ reflexes bilateral patella tendons. Normal gait. No ataxia. Skin: No rash or lesions noted MEDICAL DECISION MAKING: Chief Complaint: Vaginal bleeding, early External records reviewed: Shows thickened heterogeneous endometrium which represent retained products of conception Transvaginal ultrasound from April 2023 Factors affecting care: History of threatened and miscarriage Social determinants of health: none History obtained from others: The patient's fianc? Consults: none [facility] Narrative: Patient was hemodynamically stable, afebrile, nontoxic-appearing. Exam without abdominal tenderness, no peritoneal signs. exam deferred by patient. I considered the following differential diagnosis: Ectopic , miscarriage, threatened miscarriage ALL IMAGES (IF OBTAINED) HAVE BEEN PERSONALLY REVIEWED AND INTERPRETED BY MYSELF. CBC with leukocytosis, no anemia or thrombocytopenia O positive (no need for Rhogam) Urinalysis shows no evidence of urinary inflammation suggestive of UTI Transvaginal ultrasound shows single live intrauterine , cervical os is closed, heart rate 126 Patient's history, physical exam are not consistent with acute intra-abdominal pathology. No evidence of ectopic or miscarriage patient sent from a threatened miscarriage. Gave Tylenol Phenergan for symptomatic relief. Gave likely just Tylenol and Phenergan, vitamin and related precautions. Gave strict OB follow-up instructions. The patient and/or family, caregivers express understanding. The patient and/or family, caregivers agrees with the plan. Shared decision making: I will have a discussion with the patient and or visitors regarding risk/benefits of further testing or admission. They will be made aware of of the risk/benefits inherent in this decision they will be given the opportunity to voice understanding. Total critical care time today provided was at least 0 minutes. This excludes separately billable procedures. Critical care time (if documented) is secondary to the patient having high probability of clinically significant/life threatening deterioration in the patient's condition which required my urgent intervention. Impression: 1. Vaginal bleeding 2. Early Dispo: Discharge home This note was generated with [employer] dictation software. It may contain incorrect words, spelling, and punctuation that were not noted in review of the chart prior to signing. Lab Data Labs: Laboratory Results - last 24 hr 10/14/23 10/14/23 11:05 11:51 WBC 11.5 H RBC 4.89 Hgb 13.8 Hct 41.3 MCV 84.5 MCH 28.2 MCHC 33.4 RDW Std Deviation 37.6 RDW Coeff of Alexis 12.4 Plt Count 252 MPV 9.8 Immature Gran % (Auto) 0.300 Neut % (Auto) 73.5 H Lymph % (Auto) 18.5 L Dewitt % (Auto) 6.9 Eos % (Auto) 0.4 Baso % (Auto) 0.4 Absolute Neuts (auto) 8.5 H Absolute Lymphs (auto) 2.13 Nucleated RBC % 0 HCG, Quant 55150 H Urine Color Yellow Urine Clarity Clear Urine pH 8.0 Ur Specific [place] 1.010 Urine Protein Negative Urine Glucose (UA) Normal Urine Ketones Negative Urine Occult Blood 150 H Urine Nitrite Negative Urine Bilirubin Negative Urine Urobilinogen Normal Ur Leukocyte Esterase Negative Urine RBC 0-5 SEEN Urine WBC 0-5 SEEN Ur Squamous Epith Cells 0-5 SEEN Urine Bacteria RARE Urine Mucus 0 SEEN Blood Type O POSITIVE Radiography Diagnostic Testing: Clinical Impression(s) from Imaging Studies Obstetrics Ultrasound 10/14/23 10:45 IMPRESSION: Single intrauterine gestation 7 weeks 2 days with estimated due date May 30, 2024. Electronically Signed: Robert Payton MD at 12:57 EST Reading Location ID and State: [address] [place] [address] , Service support , Discharge Plan Triage Chief Complaint: Vag Bld, Preg ED Provider: Nik Conway Dx/Rx/DC Orders Clinical Impression: Miscarriage, threatened, early Instructions: Understanding Miscarriage: Emotions, Miscarriage Threatened Prescriptions: New promethazine 25 mg tablet 25 mg PO TID PRN (Reason: nausea and vomiting) 7 Days Qty: 21 0RF doxylamine-pyridoxine (vit B6) [Diclegis] 10-10 mg tablet,delayed release (DR/EC) 2 tab PO QHS 30 Days Qty: 60 0RF No Action PNV no.[id number] 400 mcg-35 mg- 25 mg-5 mg tablet,chewable PO omeprazole magnesium [Prilosec OTC] 20 mg tablet,delayed release (DR/EC) 20 mg PO DAILY Qty: 30 6RF levothyroxine [Euthyrox] 50 mcg tablet 50 mcg PO DAILY ondansetron 4 mg tablet,disintegrating 4 mg PO DAILY Qty: 90 2RF Primary Care Provider: Care Physician,No Primary Referrals: Marycruz Lawrence MD [Med Staff - Active Staff] - Activity Restrictions/Additional Instructions: Thank you for trusting us with your care today! Please take Tylenol (2 pills, 650 mg) every 6 hours as needed for pain and fever control. Please take Diclegis (doxylamine, vitamin B6) daily at bedtime as prescribed. If this does not control your related nausea please take Phenergan for breakthrough nausea or vomiting. Please return to the emergency department if your symptoms change or worsen. Specifically develop acute worsening of abdominal pain, if you lose consciousness, develop heavy bleeding. Please follow with your [facility] [employer] for further outpatient evaluation and management. Disposition Disposition: Home, Self Care
[2023-10-14 10:41] VITALS: BP 115/100; PULSE 81; RESP 16; O2SAT 100
--- NOTE | 2023-10-14 10:45 | US_ITS ---
STUDY: FIRST TRIMESTER OBSTETRICAL ULTRASOUND REASON FOR EXAM: Female, 28 years old Vag bleeding early LMP: Unknown. TECHNIQUE: Transvaginal TECHNICAL QUALITY: Adequate. PRIOR ULTRASOUND: None. FINDINGS: There is visualization of a single gestational sac in a normal intrauterine position. The mean sac diameter (MSD) measures 2.4 cm, indicating an estimated gestational age (EGA) of 7 weeks, 3 days. The gestational sac shape is within normal limits. There is a visualized yolk sac. The yolk sac measures 0.3 cm. The placenta is non-visualized. There is visualization of a live embryo. The crown-rump length (CRL) measures 0.9 cm, indicating an estimated gestational age (EGA) of 7 weeks, 0 days. There is demonstrated cardiac activity with a heart rate of 126 bpm. The estimated gestation age (EGA) by US is 7 weeks, 2 days. The estimated date of delivery (LEN) by US is May 30, 2024. The uterus measures 9.6 x 6.4 x 4.9 cm. There is no demonstrated uterine fibroid. The cervix is closed. The right ovary measures 2.6 x 2.0 x 2.0 cm. There is no right ovarian cyst. There is no visualized right adnexal mass or complex lesion. The left ovary measures 3.4 x 2.8 x 2.4 cm. There is no left ovarian cyst. There is no visualized left adnexal mass or complex lesion. There is no fluid in the cul de sac. US/Transvaginal w/Preg US IMPRESSION: Single intrauterine gestation 7 weeks 2 days with estimated due date May 30, 2024. Electronically Signed: Robert Payton MD at 12:57 EST ,
[2023-10-14 11:14] LABS: Absolute Lymphocyte Count 2.13 X10^3/uL (0.83-4.51); Absolute Neutrophil Count 8.5 X10^3/uL (2.0-7.7); Basophil# 0.05 X10^3/uL; Basophil% 0.4 % (0-1); Eosinophil# 0.05 X10^3/uL; Eosinophils% 0.4 % (0-5); Hematocrit 41.3 % (37-47); Hemoglobin 13.8 g/dL (12.0-15.0); Lymphocyte # 2.13 X10^3/ul (0.83-4.51); Lymphocyte % 18.5 % (19-41); Mean Corp Hgb Conc 33.4 g/dL (32-36); Mean Corpuscular Hgb 28.2 pg (27.0-32.0); Mean Corpuscular Volume 84.5 fL (81-99); Mean Platelet Vol. 9.8 fl (6.2-12.0); Monocyte# 0.79 X10^3/uL; Monocyte% 6.9 % (0-10); NRBC Flagged by Analyzer 0 % (0-5); Neutrophil # 8.46 X10^3/uL (2.7-7.7); Neutrophil % 73.5 % (47-70); Platelet Count 252 K/mm3 (150-450); RBC Distribution Width CV 12.4 % (11.6-14.6); RBC Distribution Width SD 37.6 fl (35.1-43.9); Red Blood Count 4.89 M/mm3 (4.2-5.4); White Blood Count 11.5 K/mm3 (4.4-11.0)
--- OUTSIDE RECORDS SUMMARY | 2023-10-14 11:41 | XMS RPT_ITS | CCD ---
Author Name Unknown Address [address] [place] [address] Organization [facility] Care Team Providers Care Outdoor Advertising Leasing Agent Name Role Phone Chavez KMAARA, Zeus Grimm Unavailable [phone] Required, No Pcp Unavailable Unavailable Chato Bailey Unavailable Unavailable Ely Walter Unavailable Unavailable ELY WALTER Attending Unavailable Ms. Chato Bailey Attending Vaughn moore PHYSICIAN, PATIENT UNSURE Primary Care Physician Unavailable PHYSICIAN, PATIENT UNSURE Primary Care ABUNDIO Driscoll MD Attending UnavailKURT Parikh MD Attending Unavailable PHYSICIAN, PATIENT UNSURE Primary Care Ramirez Bee PA-C Primary Care Provider [phone] TAVON TOVAR Attending Unavailable RAMIREZ SOTO Referring Unavailable TAVON TOVAR Attending Unavailable RAMIREZ SOTO Referring Unavailable TAVON TOVAR Referring Unavailable TAVON TOVAR Attending Unavailable TAVON TOVAR Referring Unavailable TAVON TOVAR Attending Unavailable JAVIER DIAZ Admitting UnavailJAVIER Carbajal Attending UnavailTAVON Garcia Attending Unavailable PCP, NONE Referring Unavailable Allergies Allergy Classification Reported Allergen(s) Allergy Type Date of Onset Reaction(s) Facility (2 sources) Hydroxychloroquine Drug Allergy 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; Translations: [Other skilled nursing (current) drug therapy] Onset: 3 Episodic Other [...] 84 mm[Hg] Javier Diaz MD Work Phone: [phone] [address] 07-30-2023 12:42-0500 Heart rate 53 /min Javier Diaz MD Work Phone: [phone] [address] 07-30-2023 12:42-0500 Respiratory rate 21 /min Javier Diaz MD Work Phone: [phone] [place] [address] 07-30-2023 12:42-0500 SaO2% (BldA) [Mass fraction] 100 % Javier Diaz MD Work Phone: [phone] [place] [address] 07-30-2023 12:42-0500 Systolic blood pressure 132 mm[Hg] Javier Diaz MD Work Phone: [phone] [place] [address] 07-30-2023 12:20-0500 Body temperature 97.11 [degF] Javier Diaz MD Work Phone: [phone] [place] [address] 07-30-2023 09:41-0500 Body height 162.6 cm Javier Diaz MD Work Phone: [phone] [place] [address] 07-30-2023 09:41-0500 Body mass index (BMI) [Ratio] 30.16 kg/m2 Javier Diaz MD Work Phone: [phone] [place] [address] 07-30-2023 09:41-0500 Body weight 79.7 kg Javier Diaz MD Work Phone: [phone] [place] [address] 03-21-2023 14:46-0400 Diastolic blood pressure 71 mm[Hg] No Pcp Required [facility] 03-21-2023 14:46-0400 Heart rate 61 /min No Pcp Required [facility] 03-21-2023 14:46-0400 Respiratory rate 16 /min No Pcp Required [facility] 03-21-2023 14:46-0400 SaO2% (BldA) [Mass fraction] 100 % No Pcp Required [facility] 03-21-2023 14:46-0400 Systolic blood pressure 120 mm[Hg] No Pcp Required [facility] 03-21-2023 13:01-0400 Body temperature 97.88 [degF] No Pcp Required [facility] 03-21-2023 13:01-0400 Body weight 78 kg No Pcp Required [facility] 11-09-2022 19:41-0500 Body height 162 cm No Pcp Required [facility] 11-09-2022 19:41-0500 Body temperature 98.78 [degF] No Pcp Required [facility] 11-09-2022 19:41-0500 Diastolic blood pressure 83 mm[Hg] No Pcp Required [facility] 11-09-2022 19:41-0500 Heart rate 108 /min No Pcp Required [facility] 11-09-2022 19:41-0500 Respiratory rate 18 /min No Pcp Required [facility] 11-09-2022 19:41-0500 SaO2% (BldA) [Mass fraction] 99 % No Pcp Required [facility] 11-09-2022 19:41-0500 Systolic blood pressure 130 mm[Hg] No Pcp Required [facility] 02-27-2017 12:50-0400 BMI (Body Mass Index) 23.31 kg/m2 Zeus Byrne MD [facility] Work Phone: 02-27-2017 12:50-0400 Body Temperature 98.3 [degF] Zeus Byrne MD [facility] Work Phone: 02-27-2017 12:50-0400 BP Diastolic 97 mm[Hg] Zeus Byrne MD [facility] Work Phone: 02-27-2017 12:50-0400 BP Systolic 134 mm[Hg] Zeus Byrne MD [facility] Work Phone: 02-27-2017 12:50-0400 Height 162.56 cm Zeus Byrne MD [facility] Work Phone: 02-27-2017 12:50-0400 Pulse (Heart Rate) 87 /min Zeus Byrne MD [facility] Work Phone: 02-27-2017 12:50-0400 Respiratory Rate 20 /min Zeus Byrne MD [facility] Work Phone: 02-27-2017 12:50-0400 Weight 61.6 kg Zeus Byrne MD [facility] Work Phone: Encounters Encounter Date Encounter Type Care Provider Facility Start: 07-30-2023 End: 07-30-2023 ambulatory JAVIER DIAZ [facility] Start: 07-30-2023 End: 07-30-2023 Subsequent hospital visit by physician Javier Diaz MD Work Phone: [facility] Start: 07-06-2023 End: 07-06-2023 ambulatory TAVON TOVAR [facility] Start: 06-28-2023 End: 06-28-2023 ambulatory KURT YAÑEZ MD Facility:A Start: 06-28-2023 End: 06-28-2023 SAME DAY STAY KURT YAÑEZ MD [facility] Start: 04-10-2023 ambulatory TAVON TOVAR [facility] Start: 04-09-2023 ambulatory TAVON TOVAR [facility] Start: 04-09-2023 End: 04-09-2023 ambulatory TAVON TOVAR [facility] Start: 04-06-2023 ambulatory TAVON TOVAR [facility] Start: 03-30-2023 End: 03-31-2023 Emergency department patient visit PATIENT UNSURE PHYSICIAN Facility:A Start: 03-21-2023 End: 03-21-2023 Emergency department patient visit Ely Walter [facility] 09 Start: 11-09-2022 End: 11-09-2022 Emergency department patient visit Chato Bailey [facility] Procedures Date Procedure Procedure Detail Performing Clinician Start: 07-30-2023 Urine test visual color cmprsn meths Tavon Tovar GLASS PROCESSING WORKER DIRECTOR OF SPORTS PERFORMANCE Work Phone: None (qualifier value) KURT YAÑEZ MD Plan of Treatment Date Care Activity Detail Author Start: 4 ANNUAL WELLNESS VISIT ANNUAL WELLNESS VISIT [facility] Start: 3 End: 3 COLONOSCOPY DIAGNOSTIC COLONOSCOPY DIAGNOSTIC Blood in stool Nausea Lower abdominal pain Bloating Gastroesophageal reflux disease without esophagitis 07/30/2023 11:37 AM EST [facility] Start: 3 End: 3 Esophagogastroduodenoscopy ESOPHAGOGASTRODUODENOSCOPY Blood in stool Nausea Lower abdominal pain Bloating Gastroesophageal reflux disease without esophagitis 07/30/2023 11:37 AM EST [facility] Start: 3 Influenza vaccination given INFLUENZA VACCINE (#1) [facility] Start: 1 Administration of diphtheria + tetanus + acellular pertussis vaccine DTAP/TDAP/TD VACCINE (7 - Td or Tdap) [facility] Start: 7 End: 7 Incise external hemorrhoid Incision of thrombosed hemorrhoid, external [facility] Work Phone: Start: 8 Depression screening using PHQ-9 (Patient Health Questionnaire 9) score DEPRESSION SCREENING [facility] Start: 7 Thyroid stimulating hormone measurement TSH [facility] Start: 6 COVID-19 VACCINE (#1) COVID-19 VACCINE (#1) [facility] Start: 6 Screening for malignant neoplasm of cervix PAP SMEAR [facility] Oxygen Therapy Nasal Cannula; Liters Per Minute: 2.0 LPM; RT may modify oxygen administration per policy: Yes During procedure Oxygen Therapy Nasal Cannula; Liters Per Minute: 2.0 LPM; RT may modify oxygen administration per policy: Yes During procedure Respiratory Care Routine Continuous until discontinued starting 07/30/2023 [facility] Payers Date Payer Category Payer Unknown [id number] 2022 Unknown 1995 Unknown [id number] 2.16.8 [id number] 1995 Unknown [id number] 2.16.8 [id number] 1995 Unknown [id number] 2.16.8 [id number] 1995 Unknown [id number] 2.16.8 [id number] 1995 Unknown [id number] 2.16. [id number] 1995 Unknown [id number] 2.16. [id number] 1995 Unknown [id number] 2.16. [id number] 1995 Unknown [id number] 2.16. [id number] 1995 Unknown [id number] 2.16. [id number] Social History Date Type Detail Facility [facility] Tobacco smoking consumption unknown [facility] Start: 04-09-2023 Tobacco smoking status Never smoked tobacco (finding) [facility] Sex Assigned At Sex [facility] Start: 04-09-2023 Tobacco use and exposure Smokeless tobacco non-user [facility] Start: 07-30-2023 Alcohol intake Current drinke r of alcohol (finding) [facility] Start: 07-03-2023 End: 07-30-2023 History of Social function [facility] Start: 07-03-2023 End: 07-30-2023 Tobacco use panel [facility] Brief social Pay for mortgage/rent Not on file [facility] Start: 07-06-2023 Alcohol Comment Socially [facility] Start: 1995 Sex Assigned At Not on file [facility] Clinical Notes 04-01-2023 to 07-30-2023 Javier [...] 07/30/2023 12:23 PM documented in this encounter [facility] 07-30-2023 Hospital Discharge instructions Brendan Rock RN [...] you have any questions, call your physician's office.[phone] Finding and Recommendation 1. Essentially normal EGD. [...] and understand my discharge instructions. 07/30/2023 NURSE: Wood Room Hand The following attachments cannot be sent through Care Everywhere.High-Fiber Diet ([place] Citizen [place])documented in this encounter [facility] 07-30-2023 Surgery Surgical operation note EGD / [...] See Anesthesia note for full detail. Staff: Marbleizing Machine Tender: Mari Ritchie RN Auto Design Checker: Silvana Abarca ST Scrub Person: Jennifer May [...] Javier Diaz MD 07/30/2023 12:17 PM [facility] 07-30-2023 Miscellaneous Notes EGD / COLONOSCOPY Procedure Note Maira Isabel Solitario 07/30/2023 Pre-op Diagnosis for EGD: [...] See Anesthesia note for full detail. Staff: Marbleizing Machine Tender: Mari Ritchie RN Auto Design Checker: Silvana Abarca ST Scrub Person: Jennifer May [...] 07/30/2023 12:17 PM documented in this encounter [facility] 07-30-2023 Attending History and physical note H&P and chart were reviewed. Patient was seen, evaluated and examined today at bedside. No interval change in history or plan. Source Note - Tavon Tovar APRN DIRECTOR OF SPORTS PERFORMANCE - 07/06/2023 3:28 PM EDT DATE OF VISIT: 07/06/2023 FRAME CHANGER: Javier Diaz MD REQUESTING PROVIDER: None Pcp [...] She was seen at the ER in [place] with abdominal pain and bloating. She had [...] has a past surgical history that includes Sandy tooth extraction. MEDICATIONS: Outpatient Medications Marked as [...] will schedule colonoscopy with Dr. Diaz in [place]. We will use [facility] for prep. MAC [...] Tavon Tovar APRN CNP-C 07/06/2023 3:28 PM [facility] 07-30-2023 History and physical note H&P and chart were reviewed. Patient was seen, evaluated and examined today at bedside. No interval change in history or plan. Source Note - Tavon Tovar APRN CNP - 07/06/2023 3:28 PM EDT DATE OF VISIT: 07/06/2023 FRAME CHANGER: Javier Diaz MD REQUESTING PROVIDER: None Pcp [...] She was seen at the ER in [place] with abdominal pain and bloating. She had [...] has a past surgical history that includes Sandy tooth extraction. MEDICATIONS: Outpatient Medications Marked as [...] will schedule colonoscopy with Dr. Diaz in [place]. We will use [facility] for prep. MAC sedation. The risks were reviewed with the patient including bleeding, perforation, adverse events of sedation, infections, and missing lesions. Hold NSAID's for 5 days prior to procedure Scheduling staff to give patient pre-procedure written instructions. Start Omeprazole 40 mg PO daily. Reviewed above labs Further recommendations pending above testing. Signed: Tavon Tovar APRN DIRECTOR OF SPORTS PERFORMANCE-C 07/06/2023 3:28 PM documented in this encounter [facility] 04-01-2023 Note . MICRO - Microbiology PROCEDURE: [...] Locations *1: This test was performed at: [facility], [address] [place] [address], [facility] , [facility] ([place]) Evaluation + Plan note No data available for this section [facility] No data available for this section [facility] Progress note No data available for this section [facility] Summary Purpose Family History No Family History [...] DATE CREATED AUTHOR AUTHOR'S ORGANIZ ATION 03/27/2023 formerly [facility] DATE CREATED AUTHOR AUTHOR'S ORGANIZ ATION 07/02/2023 [facility] ([place]) DATE CREATED AUTHOR AUTHOR'S ORGANIZ ATION 07/15/2023 [facility] DATE CREATED AUTHOR AUTHOR'S ORGANIZ ATION 08/03/2023 [facility] <item><item> Privacy Markings (unrecogniz [...] Expiration Date V isits Requested Visits Authorized [id number] New Request 07/08/2023 08/08/2024 1 1 Continuous [...] BE BASED ON THE PRIMARY CLINICAL RECORDS. [facility] [employer] [facility]. provides no warranty or guarantee of the accuracy or completeness of information in this document.
[2023-10-14 11:56] LABS: Color, Urine Yellow (Yellow); Glucose, Dipstick Normal (Normal); Ketone-Dipstick Negative (Negative); Leukocyte Esterase-Dipstick Negative /ul (Negative); Mucous, Urine 0 SEEN /hpf (<or=2+); Nitrite-Dipstick Negative (Negative); Occult Blood-Urine 150 /ul (Negative); Protein-Dipstick Negative (Negative); Urine Bilirubin Dipstick Negative (Negative); Urine Clarity Clear (Clear); Urine Urobilinogen Normal (Normal)
[2023-10-14 12:01] LABS: Bacteria RARE /hpf (None Seen); Red Blood Cells-Urine 0-5 SEEN /hpf (0-5); Squamous Epithelial Cells - UA 0-5 SEEN /hpf (5-10); White Blood Cells 0-5 SEEN /hpf (0-5)
[2023-10-14 12:12] LABS: hCG Titer Quant., Serum 47062 mIU/mL (1-3)
[2023-10-14] MEDS: proMETHazine 25 MG Tablet PO (13:39)
[2023-10-14] MEDS: Acetaminophen 325 MG Tablet 650 MG PO (13:39)
[2023-10-14 14:10] VITALS: BP 118/78; PULSE 89; RESP 16; O2SAT 98
== END 2023-10-14 14:26 | disposition home or self-care (01) ==
PROVIDERS: Emergency Provider Emergency Medicine; Visit Provider Emergency Medicine
DX: O20.9 Hemorrhage in early pregnancy, unspecified (principal); Z3A.01 Less than 8 weeks gestation of pregnancy
CPT/HCPCS: 76817; 81001; 84702; 85025; 86900; 86901; 99285; A4216

== ENCOUNTER 2023-10-18 13:11 | Outpatient (CLI) | payer MEDICAID, SELFPAY ==
[2023-10-18 13:38] VITALS: BP 129/77; PULSE 72; RESP 16; TEMP 36.1; O2SAT 99
[2023-10-18] MEDS: Ondansetron 4 MG/2 ML Vial IV (13:47)
[2023-10-18] MEDS: Dextrose 5%-Lactated Ringers 1,000 ML 999 ML IV (13:48)
[2023-10-18] MEDS: 0.9% NaCl Peripheral Flush Adult/Peds IV ×2 (13:53→13:54)
[2023-10-18 14:55] VITALS: BP 108/60; PULSE 63; RESP 16; TEMP 36; O2SAT 100
--- OUTSIDE RECORDS SUMMARY | 2023-10-18 15:18 | XMS RPT_ITS | CCD ---
Author Name Unknown Address [address] [place] [address] Organization [facility] Care Team Providers Care Senior Software Development Engineer Name Role Phone Chavez KAMARA, Zeus Grimm Unavailable [phone] Required, No Pcp Unavailable Unavailable Chato Bailey Unavailable Unavailable Ely Walter Unavailable Unavailable ELY WALTER Attending Unavailable Ms. Chato Bailey Attending Vaughn moore PHYSICIAN, PATIENT UNSURE Primary Care Physician Unavailable PHYSICIAN, PATIENT UNSURE Primary Care ABUNDIO Driscoll MD Attending UnavailKUTR Parikh MD Attending Unavailable PHYSICIAN, PATIENT UNSURE [...] Reaction(s) Facility (2 sources) Hydroxychloroquine Drug Allergy [facility] (2 sources) Hydroxychloroquine; Translations: [hydroxychloroquine] Drug Allergy 3 [facility] Medications Current Medications Medication Drug [...] mouth once daily WELLBUTRIN XL 300 MG [id number] One tablet by mouth daily BUPROPION HCL [id number] Esthela Sanders Problems Active Problems Problem Classification [...] 07-30-2023 Episodic Other aftercare (1 source) Other certified physician's assistant (current) drug therapy; Translations: [Other residential (current) drug therapy] Onset: 3 Episodic Other [...] 84 mm[Hg] Javier Diaz MD Work Phone: [phone] [address] 07-30-2023 12:42-0500 Heart rate 53 /min Javier Diaz MD Work Phone: [phone] [address] 07-30-2023 12:42-0500 Respiratory rate 21 /min Javier Diaz MD Work Phone: [phone])[phone] [place] [address] 07-30-2023 12:42-0500 SaO2% (BldA) [Mass fraction] 100 % Javier Diaz MD Work Phone: [phone])[phone] [place] [address] 07-30-2023 12:42-0500 Systolic blood pressure 132 mm[Hg] Javier Diaz MD Work Phone: [phone])[phone] [place] [address] 07-30-2023 12:20-0500 Body temperature 97.11 [degF] Javier Diaz MD Work Phone: [phone] [place] [address] 07-30-2023 09:41-0500 Body height 162.6 cm Javier Diaz MD Work Phone: [phone] [place] [address] 07-30-2023 09:41-0500 Body mass index (BMI) [Ratio] 30.16 kg/m2 Javier Diaz MD Work Phone: 1(280)108-456547 [place] [address] 07-30-2023 09:41-0500 Body weight 79.7 kg Javier Diaz MD Work Phone: 2(061)[phone] [place] [address] 03-21-2023 14:46-0400 Diastolic blood pressure 71 mm[Hg] No Pcp Required [facility] 03-21-2023 14:46-0400 Heart rate 61 /min No Pcp Required [facility] 03-21-2023 14:46-0400 Respiratory rate 16 /min No Pcp Required [facility] 03-21-2023 14:46-0400 SaO2% (BldA) [Mass fraction] 100 % No Pcp Required [facility] 03-21-2023 14:46-0400 Systolic blood pressure 120 mm[Hg] No Pcp Required [facility] 03-21-2023 13:01-0400 Body temperature 97.88 [degF] No Pcp Required [facility] 03-21-2023 13:01-0400 Body weight 78 kg No Pcp Required [facility] 11-09-2022 19:41-0500 Body height 162 cm No Pcp Required [facility] 11-09-2022 19:41-0500 Body temperature 98.78 [degF] No Pcp Required [facility] 11-09-2022 19:41-0500 Diastolic blood pressure 83 mm[Hg] No Pcp Required [facility] 11-09-2022 19:41-0500 Heart rate 108 /min No Pcp Required [facility] 11-09-2022 19:41-0500 Respiratory rate 18 /min No Pcp Required [facility] 11-09-2022 19:41-0500 SaO2% (BldA) [Mass fraction] 99 % No Pcp Required [facility] 11-09-2022 19:41-0500 Systolic blood pressure 130 mm[Hg] No Pcp Required [facility] 02-27-2017 12:50-0400 BMI (Body Mass Index) 23.31 kg/m2 Zeus Byrne MD [facility] Work Phone: 02-27-2017 12:50-0400 Body Temperature 98.3 [degF] Zeus Byrne MD [facility] Work Phone: 02-27-2017 12:50-0400 BP Diastolic 97 mm[Hg] Zeus Byrne MD [facility] Work Phone: 02-27-2017 12:50-0400 BP Systolic 134 mm[Hg] Zeus Byrne MD [facility] Work Phone: 02-27-2017 12:50-0400 Height 162.56 cm Zeus Byrne MD [facility] Work Phone: 02-27-2017 12:50-0400 Pulse (Heart Rate) 87 /min Zeus Byrne MD [facility] Work Phone: 02-27-2017 12:50-0400 Respiratory Rate 20 /min Zeus Byrne MD [facility] Work Phone: 02-27-2017 12:50-0400 Weight 61.6 kg Zeus Byrne MD [facility] Work Phone: Encounters Encounter Date Encounter Type Care Provider Facility Start: 07-30-2023 End: 07-30-2023 ambulatory JAVIER DIAZ [facility] Start: 07-30-2023 End: 07-30-2023 Subsequent hospital visit by physician Javier Diaz MD Work Phone: [facility] Start: 07-06-2023 End: 07-06-2023 ambulatory TAVON TOVAR [facility] Start: 06-28-2023 End: 06-28-2023 ambulatory KURT YAÑEZ MD Facility:A Start: 06-28-2023 End: 06-28-2023 SAME DAY STAY KURT YAÑEZ MD [facility] Start: 04-10-2023 ambulatory TAVON TOVAR [facility] Start: 04-09-2023 ambulatory TAVON TOVAR [facility] Start: 04-09-2023 End: 04-09-2023 ambulatory TAVON TOVAR [facility] Start: 04-06-2023 ambulatory TAVON TOVAR [facility] Start: 03-30-2023 End: 03-31-2023 Emergency department patient visit PATIENT UNSURE PHYSICIAN Facility:A Start: 03-21-2023 End: 03-21-2023 Emergency department patient visit Ely Walter [facility] 09 Start: 11-09-2022 End: 11-09-2022 Emergency department patient visit Chato Bailey [facility] Procedures Date Procedure Procedure Detail Performing Clinician Start: 07-30-2023 Urine test visual color cmprsn meths Tavon Tovar DIRECTOR PAYER MARKETING TEAM LEAD Work Phone: None (qualifier value) KURT YAÑEZ MD Plan of Treatment Date Care Activity Detail Author Start: 4 ANNUAL WELLNESS VISIT ANNUAL WELLNESS VISIT [facility] [place] [place] Start: 3 End: 3 COLONOSCOPY DIAGNOSTIC COLONOSCOPY DIAGNOSTIC Blood in stool Nausea Lower abdominal pain Bloating Gastroesophageal reflux disease without esophagitis 07/30/2023 11:[address] [facility] [place] [place] Start: 3 End: 3 Esophagogastroduodenoscopy ESOPHAGOGASTRODUODENOSCOPY Blood in stool Nausea Lower abdominal pain Bloating Gastroesophageal reflux disease without esophagitis 07/30/2023 11:[address] [facility] [place] [place] Start: 3 Influenza vaccination given INFLUENZA VACCINE (#1) [facility] [place] [place] Start: 1 Administration of diphtheria + tetanus + acellular pertussis vaccine DTAP/TDAP/TD VACCINE (7 - Td or Tdap) [facility] [place] [place] Start: 7 End: 7 Incise external hemorrhoid Incision of thrombosed hemorrhoid, external [facility] Work Phone: Start: 8 Depression screening using PHQ-9 (Patient Health Questionnaire 9) score DEPRESSION SCREENING [facility] [place] [place] Start: 7 Thyroid stimulating hormone measurement TSH [facility] [place] [place] Start: 6 COVID-19 VACCINE (#1) COVID-19 VACCINE (#1) [facility] [place] [place] Start: 6 Screening for malignant neoplasm of cervix PAP SMEAR [facility] [place] [place] Oxygen Therapy Nasal Cannula; Liters Per Minute: 2.0 LPM; RT may modify oxygen administration per policy: Yes During procedure Oxygen Therapy Nasal Cannula; Liters Per Minute: 2.0 LPM; RT may modify oxygen administration per policy: Yes During procedure Respiratory Care Routine Continuous until discontinued starting 07/30/[address] [facility] [place] [place] Payers Date Payer Category Payer Unknown [id number] 2022 Unknown 1995 Unknown [id number] 2.16.8 [id number] 1995 Unknown [id number] 2.16.8 [id number] 1995 Unknown [id number] 2.16.8 [id number] 1995 Unknown [id number] 2.16.8 [id number] 1995 Unknown [id number] 2.16. [id number] 1995 Unknown [id number] 2.16. [id number] 1995 Unknown [id number] 2.16. [id number] 1995 Unknown [id number] 2.16. [id number] 1995 Unknown [id number] 2.16. [id number] Social History Date Type Detail Facility [facility] Tobacco smoking consumption unknown [facility] Start: 04-09-2023 Tobacco smoking status Never smoked tobacco (finding) [facility] Sex Assigned At Sex [facility] Start: 04-09-2023 Tobacco use and exposure Smokeless tobacco non-user [facility] Start: 07-30-2023 Alcohol intake Current drinke r of alcohol (finding) [facility] Start: 07-03-2023 End: 07-30-2023 History of Social function [facility] Start: 07-03-2023 End: 07-30-2023 Tobacco use panel [facility] [place] [place] Brief social Pay for mortgage/rent Not on file [facility] Start: 07-06-2023 Alcohol Comment Socially [facility] Start: 1995 Sex Assigned At Not on file [facility] Clinical Notes 04-01-2023 to 07-30-2023 Javier [...] 07/30/2023 12:23 PM documented in this encounter [facility] [place] [place] 07-30-2023 Hospital Discharge instructions Brendan Rock RN [...] you have any questions, call your physician's office.[phone] Finding and Recommendation 1. Essentially normal EGD. [...] and understand my discharge instructions. 07/30/2023 NURSE: Line Fisher The following attachments cannot be sent through Care Everywhere.High-Fiber Diet (Paraguayan Vietnamese)documented in this encounter [facility] [place] [place] 07-30-2023 Surgery Surgical operation note EGD / [...] See Anesthesia note for full detail. Staff: Security Strategist: Mari Ritchie RN Patient Safety Officer: Silvana Abarca ST Scrub Person: Jennifer May [...] hemorrhoids. Javier Diaz MD 07/30/2023 12:17 PM [facility] 07-30-2023 Miscellaneous Notes EGD / COLONOSCOPY Procedure [...] See Anesthesia note for full detail. Staff: Security Strategist: Mari Ritchie RN Patient Safety Officer: Silvana Abarca ST Scrub Person: Jennifer May [...] 07/30/2023 12:17 PM documented in this encounter [facility] [place] [place] 07-30-2023 Attending History and physical note H&P and chart were reviewed. Patient was seen, evaluated and examined today at bedside. No interval change in history or plan. Source Note - Tavon Tovar APRN MARKETING TEAM LEAD - 07/06/2023 3:28 PM EDT DATE OF VISIT: 07/06/2023 ROLLER MAN: Javier Diaz MD REQUESTING PROVIDER: None Pcp [...] She was seen at the ER in [place] with abdominal pain and bloating. She had [...] has a past surgical history that includes Bath tooth extraction. MEDICATIONS: Outpatient Medications Marked as [...] will schedule colonoscopy with Dr. Diaz in [place]. We will use Gol[facility] for prep. MAC [...] Tavon Tovar APRN CNP-C 07/06/2023 3:[address] [facility] [place] [place] 07-30-2023 History and physical note H&P and chart were reviewed. Patient was seen, evaluated and examined today at bedside. No interval change in history or plan. Source Note - Tavon Tovar APRN CNP - 07/06/2023 3:28 PM EDT DATE OF VISIT: 07/06/2023 ROLLER MAN: Javier Diaz MD REQUESTING PROVIDER: None Pcp [...] She was seen at the ER in [place] with abdominal pain and bloating. She had [...] has a past surgical history that includes Bath tooth extraction. MEDICATIONS: Outpatient Medications Marked as [...] will schedule colonoscopy with Dr. Diaz in [place]. We will use [facility] for prep. MAC sedation. The risks were reviewed with the patient including bleeding, perforation, adverse events of sedation, infections, and missing lesions. Hold NSAID's for 5 days prior to procedure Scheduling staff to give patient pre-procedure written instructions. Start Omeprazole 40 mg PO daily. Reviewed above labs Further recommendations pending above testing. Signed: Tavon Tovar APRN MARKETING TEAM LEAD-C 07/06/2023 3:28 PM documented in this encounter [facility] [place] [place] 04-01-2023 Note . MICRO - Microbiology PROCEDURE: [...] Locations *1: This test was performed at: [facility], [address] [place] [address], [facility] , [facility] ([place]) Evaluation + Plan note No data available for this section [facility] documented in this encounter [facility] [place] [place] No data available for this section [facility] Progress note No data available for this section [facility] Summary Purpose Family History No Family [...] DATE CREATED AUTHOR AUTHOR'S ORGANIZ ATION 03/27/2023 [facility] DATE CREATED AUTHOR AUTHOR'S ORGANIZ ATION 07/02/2023 [facility] ([place]) DATE CREATED AUTHOR AUTHOR'S ORGANIZ ATION 07/15/2023 [facility] DATE CREATED AUTHOR AUTHOR'S ORGANIZ ATION 08/03/2023 [facility] <item><item> Privacy Markings (unrecogniz ed section [...] Expiration Date V isits Requested Visits Authorized [id number] New Request 07/08/2023 08/08/2024 1 1 Continuous [...] BE BASED ON THE PRIMARY CLINICAL RECORDS. [facility] provides no warranty or guarantee of the accuracy or completeness of information in this document.
== END 2023-10-18 13:12 | disposition home or self-care (01) ==
PROVIDERS: Referring Provider Nurse Practitioner Women's Health; Visit Provider Nurse Practitioner Women's Health
DX: E86.0 Dehydration (principal)
CPT/HCPCS: 96374; 96361; A4216; J2405

== ENCOUNTER 2023-10-19 14:01 | Outpatient (CLI) | payer MEDICAID, SELFPAY ==
[2023-10-19] MEDS: Dextrose 5%-Lactated Ringers 1,000 ML 999 ML IV (14:31)
[2023-10-19] MEDS: 0.9% NaCl Peripheral Flush Adult/Peds IV ×2 (14:31→14:36)
[2023-10-19] MEDS: Ondansetron 4 MG/2 ML Vial IV (14:31)
[2023-10-19 14:37] VITALS: BP 126/71; PULSE 76; RESP 16; TEMP 36.4; O2SAT 100; BMI 30.6
[2023-10-19 15:42] VITALS: BP 114/67; PULSE 81; RESP 16
== END 2023-10-19 14:02 | disposition home or self-care (01) ==
LOC: MEDOUTP 14:02
PROVIDERS: Referring Provider Advanced Practice Midwife; Visit Provider Advanced Practice Midwife
DX: E86.0 Dehydration (principal)
CPT/HCPCS: 96374; 96361; A4216; J2405

== ENCOUNTER → 2023-10-19 | Outpatient (CLI) | payer MEDICAID, SELFPAY ==
--- OUTSIDE RECORDS SUMMARY | 2023-10-19 18:20 | XMS RPT_ITS | CCD ---
Author Name Unknown Address [id number] [place] [address] Organization [facility] Care Team Providers Care Flap Maker Name Role Phone Chavez KAMARA, Zeus Grimm Unavailable [phone] Required, No Pcp Unavailable Unavailable Chato Bailey [...] Reaction(s) Facility (2 sources) Hydroxychloroquine Drug Allergy [facility] (2 sources) Hydroxychloroquine; Translations: [hydroxychloroquine] Drug Allergy 3 [facility] Medications Current Medications Medication Drug Class(es) Dates [...] mouth once daily WELLBUTRIN XL 300 MG [id number] One tablet by mouth daily BUPROPION HCL [id number] Esthela Sanders Problems Active Problems Problem Classification [...] 07-30-2023 Episodic Other aftercare (1 source) Other supervisor intermediates (current) drug therapy; Translations: [Other intermediate (current) drug therapy] Onset: 3 Episodic Other [...] 84 mm[Hg] Javier Diaz MD Work Phone: [phone] [address] 07-30-2023 12:42-0500 Heart rate 53 /min Javier Diaz MD Work Phone: [phone] [address] 07-30-2023 12:42-0500 Respiratory rate 21 /min Javier Diaz MD Work Phone: [phone] [place] [address] 07-30-2023 12:42-0500 SaO2% (BldA) [Mass fraction] 100 % Javier Diaz MD Work Phone: [phone] [place] [address] 07-30-2023 12:42-0500 Systolic blood pressure 132 mm[Hg] Javier Diaz MD Work Phone: [phone] [place] [address] 07-30-2023 12:20-0500 Body temperature 97.11 [degF] Javier Diaz MD Work Phone: [phone] [place] [address] 07-30-2023 09:41-0500 Body height 162.6 cm Javier Diaz MD Work Phone: [phone] [place] [address] 07-30-2023 09:41-0500 Body mass index (BMI) [Ratio] 30.16 kg/m2 Javier Diaz MD Work Phone: [phone] [place] [address] 07-30-2023 09:41-0500 Body weight 79.7 kg Javier Diaz MD Work Phone: [phone] [place] [address] 03-21-2023 14:46-0400 Diastolic blood pressure 71 mm[Hg] No Pcp Required [facility] 03-21-2023 14:46-0400 Heart rate 61 /min No Pcp Required [facility] 03-21-2023 14:46-0400 Respiratory rate 16 /min No Pcp Required [facility] 03-21-2023 14:46-0400 SaO2% (BldA) [Mass fraction] 100 % No Pcp Required [facility] 03-21-2023 14:46-0400 Systolic blood pressure 120 mm[Hg] No Pcp Required [facility] 03-21-2023 13:01-0400 Body temperature 97.88 [degF] No Pcp Required [facility] 03-21-2023 13:01-0400 Body weight 78 kg No Pcp Required [facility] 11-09-2022 19:41-0500 Body height 162 cm No Pcp Required [facility] 11-09-2022 19:41-0500 Body temperature 98.78 [degF] No Pcp Required [facility] 11-09-2022 19:41-0500 Diastolic blood pressure 83 mm[Hg] No Pcp Required [facility] 11-09-2022 19:41-0500 Heart rate 108 /min No Pcp Required [facility] 11-09-2022 19:41-0500 Respiratory rate 18 /min No Pcp Required [facility] 11-09-2022 19:41-0500 SaO2% (BldA) [Mass fraction] 99 % No Pcp Required [facility] 11-09-2022 19:41-0500 Systolic blood pressure 130 mm[Hg] No Pcp Required [facility] 02-27-2017 12:50-0400 BMI (Body Mass Index) 23.31 kg/m2 Zeus Byrne MD [facility] Work Phone: 02-27-2017 12:50-0400 Body Temperature 98.3 [degF] Zeus Byrne MD [facility] Work Phone: 02-27-2017 12:50-0400 BP Diastolic 97 mm[Hg] Zeus Byrne MD [facility] Work Phone: 02-27-2017 12:50-0400 BP Systolic 134 mm[Hg] Zeus Byrne MD [facility] Work Phone: 02-27-2017 12:50-0400 Height 162.56 cm Zeus Byrne MD [facility] Work Phone: 02-27-2017 12:50-0400 Pulse (Heart Rate) 87 /min Zeus Byrne MD [facility] Work Phone: 02-27-2017 12:50-0400 Respiratory Rate 20 /min Zeus Byrne MD [facility] Work Phone: 02-27-2017 12:50-0400 Weight 61.6 kg Zeus Byrne MD [facility] Work Phone: Encounters Encounter Date Encounter Type Care Provider Facility Start: 07-30-2023 End: 07-30-2023 ambulatory JAVIER DIAZ [facility] Start: 07-30-2023 End: 07-30-2023 Subsequent hospital visit by physician Javier Diaz MD Work Phone: [facility] Start: 07-06-2023 End: 07-06-2023 ambulatory TAVON TOVAR [facility] Start: 06-28-2023 End: 06-28-2023 ambulatory KURT YAÑEZ MD Facility:A Start: 06-28-2023 End: 06-28-2023 SAME DAY STAY KURT YAÑEZ MD [facility] Start: 04-10-2023 ambulatory TAVON TOVAR [facility] Start: 04-09-2023 ambulatory TAVON TOVAR [facility] Start: 04-09-2023 End: 04-09-2023 ambulatory TAVON TOVAR [facility] Start: 04-06-2023 ambulatory TAVON TOVAR [facility] Start: 03-30-2023 End: 03-31-2023 Emergency department patient visit PATIENT UNSURE PHYSICIAN Facility:A Start: 03-21-2023 End: 03-21-2023 Emergency department patient visit Ely [facility] Emergency 09 Start: 11-09-2022 End: 11-09-2022 Emergency department patient visit Chato Bailey [facility] Procedures Date Procedure Procedure Detail Performing Clinician Start: 07-30-2023 Urine test visual color cmprsn meths Tavon Tovar TOOL GRINDING TECHNICIAN [employer] Work Phone: None (qualifier value) KURT YAÑEZ MD Plan of Treatment Date Care Activity Detail Author Start: 4 ANNUAL WELLNESS VISIT ANNUAL WELLNESS VISIT [facility] Start: 3 End: 3 COLONOSCOPY DIAGNOSTIC COLONOSCOPY DIAGNOSTIC Blood in stool Nausea Lower abdominal pain Bloating Gastroesophageal reflux disease without esophagitis 07/30/2023 11:37 AM EST [facility] Start: 3 End: 3 Esophagogastroduodenoscopy ESOPHAGOGASTRODUODENOSCOPY Blood in stool Nausea Lower abdominal pain Bloating Gastroesophageal reflux disease without esophagitis 07/30/2023 11:37 AM EST [facility] Start: 3 Influenza vaccination given INFLUENZA VACCINE (#1) [facility] Start: 1 Administration of diphtheria + tetanus + acellular pertussis vaccine DTAP/TDAP/TD VACCINE (7 - Td or Tdap) [facility] Start: 7 End: 7 Incise external hemorrhoid Incision of thrombosed hemorrhoid, external [facility] Work Phone: Start: 8 Depression screening using PHQ-9 (Patient Health Questionnaire 9) score DEPRESSION SCREENING [facility] Start: 7 Thyroid stimulating hormone measurement TSH [facility] Start: 6 COVID-19 VACCINE (#1) COVID-19 VACCINE (#1) [facility] Start: 6 Screening for malignant neoplasm of cervix PAP SMEAR [facility] Oxygen Therapy Nasal Cannula; Liters Per Minute: 2.0 LPM; RT may modify oxygen administration per policy: Yes During procedure Oxygen Therapy Nasal Cannula; Liters Per Minute: 2.0 LPM; RT may modify oxygen administration per policy: Yes During procedure Respiratory Care Routine Continuous until discontinued starting 07/30/2023 [facility] Payers Date Payer Category Payer Unknown [id number] 2022 Unknown 1995 Unknown [id number] 2.16.8 [id number] 1995 Unknown [id number] 2.16.8 [id number] 1995 Unknown [id number] 2.16.8 [id number] 1995 Unknown [id number] 2.16.8 [id number] 1995 Unknown [id number] 2.16. [id number] 1995 Unknown [id number] 2.16. [id number] 1995 Unknown [id number] 2.16. [id number] 1995 Unknown [id number] 2.16. [id number] 1995 Unknown [id number] 2.16. [id number] Social History Date Type Detail Facility [facility] Tobacco smoking consumption unknown [facility] Start: 04-09-2023 Tobacco smoking status Never smoked tobacco (finding) [facility] Sex Assigned At Sex [facility] Start: 04-09-2023 Tobacco use and exposure Smokeless tobacco non-user [facility] Start: 07-30-2023 Alcohol intake Current drinke r of alcohol (finding) [facility] Start: 07-03-2023 End: 07-30-2023 History of Social function [facility] Start: 07-03-2023 End: 07-30-2023 Tobacco use panel [facility] Brief social Pay for mortgage/rent Not on file [facility] Start: 07-06-2023 Alcohol Comment Socially [facility] Start: 1995 Sex Assigned At Not on file [facility] Clinical Notes 04-01-2023 to 07-30-2023 Javier [...] 07/30/2023 12:23 PM documented in this encounter [facility] 07-30-2023 Hospital Discharge instructions Brendan Rock RN [...] you have any questions, call your physician's office.[phone] Finding and Recommendation 1. Essentially normal EGD. [...] and understand my discharge instructions. 07/30/2023 NURSE: Digital Marketing Manager The following attachments cannot be sent through Care Everywhere.High-Fiber Diet (Northern Irish [place]inean)documented in this encounter [facility] 07-30-2023 Surgery Surgical operation note EGD / [...] See Anesthesia note for full detail. Staff: Recreation Activities Coordinator: Mari Ritchie RN Trawl Net Maker: Silvana Abarca ST Scrub Person: Jennifer May [...] High-fiber diet for management of hemorrhoids. Javier Daiz MD 07/30/2023 12:17 PM [facility] 07-30-2023 Miscellaneous Notes EGD / COLONOSCOPY Procedure [...] See Anesthesia note for full detail. Staff: Recreation Activities Coordinator: Mari Ritchie RN Trawl Net Maker: Silvana Abarca ST Scrub Person: Jennifer May [...] 07/30/2023 12:17 PM documented in this encounter [facility] 07-30-2023 Attending History and physical note H&P and chart were reviewed. Patient was seen, evaluated and examined today at bedside. No interval change in history or plan. Source Note - Tavon Tovar APRN [employer] - 07/06/2023 3:28 PM EDT DATE OF VISIT: 07/06/2023 SENIOR CONSTRUCTION MANAGER: Javier Diaz MD REQUESTING PROVIDER: None Pcp [...] She was seen at the ER in [place] with abdominal pain and bloating. She had [...] has a past surgical history that includes Longs tooth extraction. MEDICATIONS: Outpatient Medications Marked as [...] will schedule colonoscopy with Dr. Diaz in [place]. We will use [facility] for prep. MAC [...] Tavon Tovar APRN CNP-C 07/06/2023 3:28 PM [facility] 07-30-2023 History and physical note H&P and chart were reviewed. Patient was seen, evaluated and examined today at bedside. No interval change in history or plan. Source Note - Tavon Tovar APRN CNP - 07/06/2023 3:28 PM EDT DATE OF VISIT: 07/06/2023 SENIOR CONSTRUCTION MANAGER: Javier Diaz MD REQUESTING PROVIDER: None Pcp [...] She was seen at the ER in [place] with abdominal pain and bloating. She had [...] has a past surgical history that includes Longs tooth extraction. MEDICATIONS: Outpatient Medications Marked as [...] will schedule colonoscopy with Dr. Diaz in [place]. We will use [facility] for prep. MAC sedation. The risks were reviewed with the patient including bleeding, perforation, adverse events of sedation, infections, and missing lesions. Hold NSAID's for 5 days prior to procedure Scheduling staff to give patient pre-procedure written instructions. Start Omeprazole 40 mg PO daily. Reviewed above labs Further recommendations pending above testing. Signed: Tavon Tovar APRN [employer]-C 07/06/2023 3:28 PM documented in this encounter [facility] 04-01-2023 Note . MICRO - Microbiology PROCEDURE: [...] *1: This test was performed at: [facility], [address] [place] [address], [facility] , [facility] ([place]) Evaluation + Plan note No data available for this section [facility] No data available for this section [facility] Progress note No data available for this section [facility] Summary Purpose Family History No Family [...] DATE CREATED AUTHOR AUTHOR'S ORGANIZ ATION 03/27/[address] [facility] DATE CREATED AUTHOR AUTHOR'S ORGANIZ ATION 07/02/2023 [facility] ([place]) DATE CREATED AUTHOR AUTHOR'S ORGANIZ ATION 07/15/2023 [facility] DATE CREATED AUTHOR AUTHOR'S ORGANIZ ATION 08/03/2023 [facility] <item><item> Privacy Markings (unrecogniz [...] Expiration Date V isits Requested Visits Authorized [id number] New Request 07/08/2023 08/08/2024 1 1 Continuous [...] BE BASED ON THE PRIMARY CLINICAL RECORDS. [facility] [employer] [facility]. provides no warranty or guarantee of the accuracy or completeness of information in this document.
[2023-10-23 07:08] LABS: Chlamydia By Nucleic Acid AMP Negative (Negative); Gonococcus By Nucleic Acid AMP Negative (Negative)
== END | disposition home or self-care (01) ==
PROVIDERS: Referring Provider Advanced Practice Midwife; Visit Provider Advanced Practice Midwife
DX: Z34.90 Encounter for supervision of normal pregnancy, unspecified, unspecified trimester (principal)
CPT/HCPCS: 87491; 87591

== ENCOUNTER 2023-10-26 13:06 | Outpatient (CLI) | payer MEDICAID, SELFPAY ==
--- OUTSIDE RECORDS SUMMARY | 2023-10-26 13:26 | XMS RPT_ITS | CCD ---
Author Name Unknown Address [id number] [place] [address] Organization [facility] Care Team Providers Care Family Practice Doctor Name Role Phone Chavez KAMARA, Zeus Grimm Unavailable [phone] Required, No Pcp Unavailable Unavailable Chato Bailey Unavailable Unavailable Ely Walter Unavailable Unavailable ELY WALTER Attending Unavailable Ms. Chato aBiley Attending Vaughn moore PHYSICIAN, PATIENT UNSURE Primary [...] Reaction(s) Facility (2 sources) Hydroxychloroquine Drug Allergy [facility] (2 sources) Hydroxychloroquine; Translations: [hydroxychloroquine] Drug Allergy 3 [facility] Medications Current Medications Medication Drug Class(es) Dates [...] mouth once daily WELLBUTRIN XL 300 MG [id number] One tablet by mouth daily BUPROPION HCL [id number] Esthela Sanders Problems Active Problems Problem Classification [...] 07-30-2023 Episodic Other aftercare (1 source) Other computer terminal operator (current) drug therapy; Translations: [Other computer terminal operator (current) drug therapy] Onset: 3 Episodic Other [...] 84 mm[Hg] Javier Diaz MD Work Phone: [phone] [address] 07-30-2023 12:42-0500 Heart rate 53 /min Javier Diaz MD Work Phone: [phone])[phone] [address] 07-30-2023 12:42-0500 Respiratory rate 21 /min Javier Diaz MD Work Phone: [phone])[phone] [place] [address] 07-30-2023 12:42-0500 SaO2% (BldA) [Mass fraction] 100 % Javier Diaz MD Work Phone: [phone] [place] [address] 07-30-2023 12:42-0500 Systolic blood pressure 132 mm[Hg] Javier Diaz MD Work Phone: [phone] [place] [address] 07-30-2023 12:20-0500 Body temperature 97.11 [degF] Javier Diaz MD Work Phone: [phone])[phone] [place] [address] 07-30-2023 09:41-0500 Body height 162.6 cm Javier Diaz MD Work Phone: [phone] [place] [address] 07-30-2023 09:41-0500 Body mass index (BMI) [Ratio] 30.16 kg/m2 Javier Diaz MD Work Phone: [phone] [place] [address] 07-30-2023 09:41-0500 Body weight 79.7 kg Javier Diaz MD Work Phone: [phone])[phone] [place] [address] 03-21-2023 14:46-0400 Diastolic blood pressure 71 mm[Hg] No Pcp Required [facility] 03-21-2023 14:46-0400 Heart rate 61 /min No Pcp Required [facility] 03-21-2023 14:46-0400 Respiratory rate 16 /min No Pcp Required [facility] 03-21-2023 14:46-0400 SaO2% (BldA) [Mass fraction] 100 % No Pcp Required [facility] 03-21-2023 14:46-0400 Systolic blood pressure 120 mm[Hg] No Pcp Required [facility] 03-21-2023 13:01-0400 Body temperature 97.88 [degF] No Pcp Required [facility] 03-21-2023 13:01-0400 Body weight 78 kg No Pcp Required [facility] 11-09-2022 19:41-0500 Body height 162 cm No Pcp Required [facility] 11-09-2022 19:41-0500 Body temperature 98.78 [degF] No Pcp Required [facility] 11-09-2022 19:41-0500 Diastolic blood pressure 83 mm[Hg] No Pcp Required [facility] 11-09-2022 19:41-0500 Heart rate 108 /min No Pcp Required [facility] 11-09-2022 19:41-0500 Respiratory rate 18 /min No Pcp Required [facility] 11-09-2022 19:41-0500 SaO2% (BldA) [Mass fraction] 99 % No Pcp Required [facility] 11-09-2022 19:41-0500 Systolic blood pressure 130 mm[Hg] No Pcp Required [facility] 02-27-2017 12:50-0400 BMI (Body Mass Index) 23.31 kg/m2 Zeus Byrne MD [facility] Work Phone: 02-27-2017 12:50-0400 Body Temperature 98.3 [degF] Zeus Byrne MD [facility] Work Phone: 02-27-2017 12:50-0400 BP Diastolic 97 mm[Hg] Zeus Byrne MD [facility] Work Phone: 02-27-2017 12:50-0400 BP Systolic 134 mm[Hg] Zeus Byrne MD [facility] Work Phone: 02-27-2017 12:50-0400 Height 162.56 cm Zeus Byrne MD [facility] Work Phone: 02-27-2017 12:50-0400 Pulse (Heart Rate) 87 /min Zeus Byrne MD [facility] Work Phone: 02-27-2017 12:50-0400 Respiratory Rate 20 /min Zeus Byrne MD [facility] Work Phone: 02-27-2017 12:50-0400 Weight 61.6 kg Zeus Byrne MD [facility] Work Phone: Encounters Encounter Date Encounter Type Care Provider Facility Start: 07-30-2023 End: 07-30-2023 ambulatory JAVIER DIAZ [facility] Start: 07-30-2023 End: 07-30-2023 Subsequent hospital visit by physician Javier Diaz MD Work Phone: [facility] Start: 07-06-2023 End: 07-06-2023 ambulatory TAVON TOVAR [facility] Start: 06-28-2023 End: 06-28-2023 ambulatory KURT YAÑEZ MD Facility:A Start: 06-28-2023 End: 06-28-2023 SAME DAY STAY KURT YAÑEZ MD [facility] Start: 04-10-2023 ambulatory TAVON TOVAR [facility] Start: 04-09-2023 ambulatory TAVON TOVAR [facility] Start: 04-09-2023 End: 04-09-2023 ambulatory TAVON TOVAR [facility] Start: 04-06-2023 ambulatory TAVON TOVAR [facility] Start: 03-30-2023 End: 03-31-2023 Emergency department patient visit PATIENT UNSURE PHYSICIAN Facility:A Start: 03-21-2023 End: 03-21-2023 Emergency department patient visit Ely Walter [facility] Emergency 09 Start: 11-09-2022 End: 11-09-2022 Emergency department patient visit Chato Bailey [facility] Procedures Date Procedure Procedure Detail Performing Clinician Start: 07-30-2023 Urine test visual color cmprsn meths Tavon Tovar [employer] Work Phone: None (qualifier value) KURT YAÑEZ MD Plan of Treatment Date Care Activity Detail Author Start: 4 ANNUAL WELLNESS VISIT ANNUAL WELLNESS VISIT [facility] Start: 3 End: 3 COLONOSCOPY DIAGNOSTIC COLONOSCOPY DIAGNOSTIC Blood in stool Nausea Lower abdominal pain Bloating Gastroesophageal reflux disease without esophagitis 07/30/2023 11:37 AM EST [facility] Start: 3 End: 3 Esophagogastroduodenoscopy ESOPHAGOGASTRODUODENOSCOPY Blood in stool Nausea Lower abdominal pain Bloating Gastroesophageal reflux disease without esophagitis 07/30/2023 11:37 AM EST [facility] Start: 3 Influenza vaccination given INFLUENZA VACCINE (#1) [facility] Start: 1 Administration of diphtheria + tetanus + acellular pertussis vaccine DTAP/TDAP/TD VACCINE (7 - Td or Tdap) [facility] Start: 7 End: 7 Incise external hemorrhoid Incision of thrombosed hemorrhoid, external [facility] Work Phone: Start: 8 Depression screening using PHQ-9 (Patient Health Questionnaire 9) score DEPRESSION SCREENING [facility] Start: 7 Thyroid stimulating hormone measurement TSH [facility] Start: 6 COVID-19 VACCINE (#1) COVID-19 VACCINE (#1) [facility] Start: 6 Screening for malignant neoplasm of cervix PAP SMEAR [facility] Oxygen Therapy Nasal Cannula; Liters Per Minute: 2.0 LPM; RT may modify oxygen administration per policy: Yes During procedure Oxygen Therapy Nasal Cannula; Liters Per Minute: 2.0 LPM; RT may modify oxygen administration per policy: Yes During procedure Respiratory Care Routine Continuous until discontinued starting 07/30/2023 [facility] Payers Date Payer Category Payer Unknown [id number] 2022 Unknown 1995 Unknown [id number] 2.16.8 [id number] 1995 Unknown [id number] 2.16.8 [id number] 1995 Unknown [id number] 2.16.8 [id number] 1995 Unknown [id number] 2.16.8 [id number] 1995 Unknown [id number] 2.16. [id number] 1995 Unknown [id number] 2.16. [id number] 1995 Unknown [id number] 2.16. [id number] 1995 Unknown [id number] 2.16. [id number] 1995 Unknown [id number] 2.16. [id number] Social History Date Type Detail Facility [facility] Tobacco smoking consumption unknown [facility] Start: 04-09-2023 Tobacco smoking status Never smoked tobacco (finding) [facility] Sex Assigned At Sex [facility] Start: 04-09-2023 Tobacco use and exposure Smokeless tobacco non-user [facility] Start: 07-30-2023 Alcohol intake Current drinke r of alcohol (finding) [facility] Start: 07-03-2023 End: 07-30-2023 History of Social function [facility] Start: 07-03-2023 End: 07-30-2023 Tobacco use panel [facility] Brief social Pay for mortgage/rent Not on file [facility] Start: 07-06-2023 Alcohol Comment Socially [facility] Start: 1995 Sex Assigned At Not on file [facility] Clinical Notes 04-01-2023 to 07-30-2023 Javier [...] 07/30/2023 12:23 PM documented in this encounter [facility] 07-30-2023 Hospital Discharge instructions Brendan Rock RN [...] you have any questions, call your physician's office.[phone] Finding and Recommendation 1. Essentially normal EGD. [...] and understand my discharge instructions. 07/30/2023 NURSE: Director Of Digital Marketing The following attachments cannot be sent through Care Everywhere.High-Fiber Diet (Algerian Sierra Leonean)documented in this encounter [facility] 07-30-2023 Surgery Surgical operation note EGD / [...] See Anesthesia note for full detail. Staff: Gas Line Repairer: Mari Ritchie RN Business Administrator: Silvana Abarca ST Scrub Person: Jennifer May [...] hemorrhoids. Javier Diaz MD 07/30/2023 12:17 PM [facility] 07-30-2023 Miscellaneous Notes EGD / COLONOSCOPY [...] See Anesthesia note for full detail. Staff: Gas Line Repairer: Mari Ritchie RN Business Administrator: Silvana Abarca ST Scrub Person: Jennifer May [...] 07/30/2023 12:17 PM documented in this encounter [facility] 07-30-2023 Attending History and physical note H&P and chart were reviewed. Patient was seen, evaluated and examined today at bedside. No interval change in history or plan. Source Note - Tavon Tovar APRN [employer] - 07/06/2023 3:28 PM EDT DATE OF VISIT: 07/06/2023 PIPELINE SUPERINTENDENT DIVISION: Javier Diaz MD REQUESTING PROVIDER: None Pcp [...] She was seen at the ER in [place] with abdominal pain and bloating. She had [...] has a past surgical history that includes [place] tooth extraction. MEDICATIONS: Outpatient Medications Marked as [...] will schedule colonoscopy with Dr. Diaz in [place]. We will use [facility] for prep. MAC [...] Tavon Tovar APRN CNP-C 07/06/2023 3:28 PM [facility] 07-30-2023 History and physical note H&P and chart were reviewed. Patient was seen, evaluated and examined today at bedside. No interval change in history or plan. Source Note - Tavon Tovar APRN CNP - 07/06/2023 3:28 PM EDT DATE OF VISIT: 07/06/2023 PIPELINE SUPERINTENDENT DIVISION: Javier Diaz MD REQUESTING PROVIDER: None Pcp [...] She was seen at the ER in [place] with abdominal pain and bloating. She had [...] has a past surgical history that includes [place] tooth extraction. MEDICATIONS: Outpatient Medications Marked as [...] will schedule colonoscopy with Dr. Diaz in [place]. We will use [employer] for prep. MAC sedation. The risks were reviewed with the patient including bleeding, perforation, adverse events of sedation, infections, and missing lesions. Hold NSAID's for 5 days prior to procedure Scheduling staff to give patient pre-procedure written instructions. Start Omeprazole 40 mg PO daily. Reviewed above labs Further recommendations pending above testing. Signed: Tavon Tovar APRN [employer]-C 07/06/2023 3:28 PM documented in this encounter [facility] 04-01-2023 Note . MICRO - Microbiology PROCEDURE: [...] Locations *1: This test was performed at: [facility], [address] [place] [address], [facility] , [facility] ([place]) Evaluation + Plan note No data available for this section [facility] documented in this encounter [facility] Dis[facility] instructions No data available for this section [facility] Progress note No data available for this section [facility] Summary Purpose Family History No Family [...] DATE CREATED AUTHOR AUTHOR'S ORGANIZ ATION 03/27/2023 [facility] DATE CREATED AUTHOR AUTHOR'S ORGANIZ ATION 07/02/2023 [facility] ([place]) DATE CREATED AUTHOR AUTHOR'S ORGANIZ ATION 07/15/2023 [facility] DATE CREATED AUTHOR AUTHOR'S ORGANIZ ATION 08/03/2023 [facility] <item><item> Privacy Markings (unrecogniz ed section [...] Expiration Date V isits Requested Visits Authorized [id number] New Request 07/08/2023 08/08/2024 1 1 Continuous [...] BE BASED ON THE PRIMARY CLINICAL RECORDS. [facility] [employer] [facility]. provides no warranty or guarantee of the accuracy or completeness of information in this document.
[2023-10-26] MEDS: 0.9% NaCl Peripheral Flush Adult/Peds IV (13:36)
[2023-10-26] MEDS: Dextrose 5%-Lactated Ringers 1,000 ML 999 ML IV (13:36)
[2023-10-26 13:37] VITALS: BP 118/70; PULSE 78; RESP 16; TEMP 36.6; O2SAT 100
[2023-10-26] MEDS: Ondansetron 4 MG/2 ML Vial IV (14:30)
[2023-10-26 14:43] VITALS: BP 113/64; PULSE 83; RESP 16; TEMP 36.4; O2SAT 100
== END 2023-10-26 13:07 | disposition home or self-care (01) ==
LOC: MEDOUTP 13:06
PROVIDERS: Referring Provider Advanced Practice Midwife; Visit Provider Advanced Practice Midwife
DX: E86.0 Dehydration (principal)
CPT/HCPCS: 96374; 96361; A4216; J2405

== ENCOUNTER 2023-11-02 13:01 | Outpatient (CLI) | payer MEDICAID, SELFPAY ==
[2023-11-02 13:07] VITALS: BP 113/70; PULSE 79; RESP 16; TEMP 36.8; O2SAT 99
[2023-11-02] MEDS: Dextrose 5%-Lactated Ringers 1,000 ML 999 ML IV (13:15)
[2023-11-02] MEDS: Ondansetron 4 MG/2 ML Vial IV (13:18)
--- OUTSIDE RECORDS SUMMARY | 2023-11-02 13:48 | XMS RPT_ITS | CCD ---
Author Name Unknown Address [address] [place] [address] Organization [facility] Care Team Providers Care Dish Up Person Name Role Phone Chavez KAMARA, Zeus Grimm Unavailable [phone] Required, No Pcp Unavailable Unavailable Chato Bailey Unavailable Unavailable Ely Walter Unavailable Unavailable ELY WALTER Attending Unavailable Ms. Chato Bailey Attending Vaughn moore PHYSICIAN, PATIENT UNSURE Primary Care Physician Unavailable PHYSICIAN, PATIENT UNSURE Primary Care ABUNDIO Driscoll MD Attending UnavailKURT Parkih MD Attending Unavailable PHYSICIAN, PATIENT UNSURE Primary [...] Reaction(s) Facility (2 sources) Hydroxychloroquine Drug Allergy [facility] (2 sources) Hydroxychloroquine; Translations: [hydroxychloroquine] Drug Allergy 3 [facility] Medications Current Medications Medication Drug Class(es) [...] mouth once daily WELLBUTRIN XL 300 MG [id number] One tablet by mouth daily BUPROPION HCL [id number] Esthela Sanders Problems Active Problems Problem Classification [...] 07-30-2023 Episodic Other aftercare (1 source) Other intermediate manager (current) drug therapy; Translations: [Other intermediate manager (current) drug therapy] Onset: 3 Episodic Other [...] 84 mm[Hg] Javier Diaz MD Work Phone: [phone] [address] 07-30-2023 12:42-0500 Heart rate 53 /min Javier Diaz MD Work Phone: [phone] [address] 07-30-2023 12:42-0500 Respiratory rate 21 /min Javier Diaz MD Work Phone: [phone] [place] [address] 07-30-2023 12:42-0500 SaO2% (BldA) [Mass fraction] 100 % Javier Diaz MD Work Phone: [phone] [place] [address] 07-30-2023 12:42-0500 Systolic blood pressure 132 mm[Hg] Javier Diaz MD Work Phone: [phone] [place] [address] 07-30-2023 12:20-0500 Body temperature 97.11 [degF] Javier Diaz MD Work Phone: [phone] [place] [address] 07-30-2023 09:41-0500 Body height 162.6 cm Javier Diaz MD Work Phone: [phone] [place] [address] 07-30-2023 09:41-0500 Body mass index (BMI) [Ratio] 30.16 kg/m2 Javier Diaz MD Work Phone: [phone] [place] [address] 07-30-2023 09:41-0500 Body weight 79.7 kg Javier Diaz MD Work Phone: [phone] [place] [address] 03-21-2023 14:46-0400 Diastolic blood pressure 71 mm[Hg] No Pcp Required [facility] 03-21-2023 14:46-0400 Heart rate 61 /min No Pcp Required [facility] 03-21-2023 14:46-0400 Respiratory rate 16 /min No Pcp Required [facility] 03-21-2023 14:46-0400 SaO2% (BldA) [Mass fraction] 100 % No Pcp Required [facility] 03-21-2023 14:46-0400 Systolic blood pressure 120 mm[Hg] No Pcp Required [facility] 03-21-2023 13:01-0400 Body temperature 97.88 [degF] No Pcp Required [facility] 03-21-2023 13:01-0400 Body weight 78 kg No Pcp Required [facility] 11-09-2022 19:41-0500 Body height 162 cm No Pcp Required [facility] 11-09-2022 19:41-0500 Body temperature 98.78 [degF] No Pcp Required [facility] 11-09-2022 19:41-0500 Diastolic blood pressure 83 mm[Hg] No Pcp Required [facility] 11-09-2022 19:41-0500 Heart rate 108 /min No Pcp Required [facility] 11-09-2022 19:41-0500 Respiratory rate 18 /min No Pcp Required [facility] 11-09-2022 19:41-0500 SaO2% (BldA) [Mass fraction] 99 % No Pcp Required [facility] 11-09-2022 19:41-0500 Systolic blood pressure 130 mm[Hg] No Pcp Required [facility] 02-27-2017 12:50-0400 BMI (Body Mass Index) 23.31 kg/m2 Zeus Byrne MD [facility] Work Phone: 02-27-2017 12:50-0400 Body Temperature 98.3 [degF] Zeus Byrne MD [facility] Work Phone: 02-27-2017 12:50-0400 BP Diastolic 97 mm[Hg] Zeus Byrne MD [facility] Work Phone: 02-27-2017 12:50-0400 BP Systolic 134 mm[Hg] Zeus Byrne MD [facility] Work Phone: 02-27-2017 12:50-0400 Height 162.56 cm Zeus Byrne MD [facility] Work Phone: 02-27-2017 12:50-0400 Pulse (Heart Rate) 87 /min Zeus Byrne MD [facility] Work Phone: 02-27-2017 12:50-0400 Respiratory Rate 20 /min Zeus Byrne MD [facility] Work Phone: 02-27-2017 12:50-0400 Weight 61.6 kg Zeus Byrne MD [facility] Work Phone: Encounters Encounter Date Encounter Type Care Provider Facility Start: 07-30-2023 End: 07-30-2023 ambulatory JAVIER DIAZ [facility] Start: 07-30-2023 End: 07-30-2023 Subsequent hospital visit by physician Javier Diaz MD Work Phone: [facility] Start: 07-06-2023 End: 07-06-2023 ambulatory TAVON TOVAR [facility] Start: 06-28-2023 End: 06-28-2023 ambulatory KURT YAÑEZ MD Facility:A Start: 06-28-2023 End: 06-28-2023 SAME DAY STAY KURT YAÑEZ MD [facility] Start: 04-10-2023 ambulatory TAVON TOVAR [facility] Start: 04-09-2023 ambulatory TAVON TOVAR [facility] Start: 04-09-2023 End: 04-09-2023 ambulatory TAVON TOVAR [facility] Start: 04-06-2023 ambulatory TAVON TOVAR [facility] Start: 03-30-2023 End: 03-31-2023 Emergency department patient visit PATIENT UNSURE PHYSICIAN Facility:A Start: 03-21-2023 End: 03-21-2023 Emergency department patient visit Ely Walter [facility] Emergency 09 Start: 11-09-2022 End: 11-09-2022 Emergency department patient visit Chato Bailey [facility] Procedures Date Procedure Procedure Detail Performing Clinician Start: 07-30-2023 Urine test visual color cmprsn meths Tavon Tovar SIGNAL WORKER HELPER [employer]LLAR RUNNER Work Phone: None (qualifier value) KURT YAÑEZ MD Plan of Treatment Date Care Activity Detail Author Start: 4 ANNUAL WELLNESS VISIT ANNUAL WELLNESS VISIT [facility] Start: 3 End: 3 COLONOSCOPY DIAGNOSTIC COLONOSCOPY DIAGNOSTIC Blood in stool Nausea Lower abdominal pain Bloating Gastroesophageal reflux disease without esophagitis 07/30/2023 11:[address] [facility] Start: 3 End: 3 Esophagogastroduodenoscopy ESOPHAGOGASTRODUODENOSCOPY Blood in stool Nausea Lower abdominal pain Bloating Gastroesophageal reflux disease without esophagitis 07/30/2023 11:[address] [facility] Start: 3 Influenza vaccination given INFLUENZA VACCINE (#1) [facility] Start: 1 Administration of diphtheria + tetanus + acellular pertussis vaccine DTAP/TDAP/TD VACCINE (7 - Td or Tdap) [facility] Start: 7 End: 7 Incise external hemorrhoid Incision of thrombosed hemorrhoid, external [facility] Work Phone: Start: 8 Depression screening using PHQ-9 (Patient Health Questionnaire 9) score DEPRESSION SCREENING [facility] Start: 7 Thyroid stimulating hormone measurement TSH [facility] Start: 6 COVID-19 VACCINE (#1) COVID-19 VACCINE (#1) [facility] Start: 6 Screening for malignant neoplasm of cervix PAP SMEAR [facility] Oxygen Therapy Nasal Cannula; Liters Per Minute: 2.0 LPM; RT may modify oxygen administration per policy: Yes During procedure Oxygen Therapy Nasal Cannula; Liters Per Minute: 2.0 LPM; RT may modify oxygen administration per policy: Yes During procedure Respiratory Care Routine Continuous until discontinued starting 07/30/[address] [facility] Payers Date Payer Category Payer Unknown [id number] 2022 Unknown 1995 Unknown [id number] 2.16.8 [id number] 1995 Unknown [id number] 2.16.8 [id number] 1995 Unknown [id number] 2.16.8 [id number] 1995 Unknown [id number] 2.16.8 [id number] 1995 Unknown [id number] 2.16. [id number] 1995 Unknown [id number] 2.16. [id number] 1995 Unknown [id number] 2.16. [id number] 1995 Unknown [id number] 2.16. [id number] 1995 Unknown [id number] 2.16. [id number] Social History Date Type Detail Facility [facility] Tobacco smoking consumption unknown [facility] Start: 04-09-2023 Tobacco smoking status Never smoked tobacco (finding) [facility] Sex Assigned At Sex [facility] Start: 04-09-2023 Tobacco use and exposure Smokeless tobacco non-user [facility] Start: 07-30-2023 Alcohol intake Current drinke r of alcohol (finding) [facility] Start: 07-03-2023 End: 07-30-2023 History of Social function [facility] Start: 07-03-2023 End: 07-30-2023 Tobacco use panel [facility] Brief social Pay for mortgage/rent Not on file [facility] Start: 07-06-2023 Alcohol Comment Socially [facility] Start: 1995 Sex Assigned At Not on file [facility] Clinical Notes 04-01-2023 to 07-30-2023 [...] PM documented in this encounter [facility] 07-30-2023 Hospital Discharge instructions Brendan Rock [...] you have any questions, call your physician's office.[phone] Finding and Recommendation 1. Essentially normal EGD. [...] and understand my discharge instructions. 07/30/2023 NURSE: Shirt Maker The following attachments cannot be sent through Care Everywhere.High-Fiber Diet (Malawian Rwandan)documented in this encounter [facility] 07-30-2023 Surgery Surgical operation note EGD [...] See Anesthesia note for full detail. Staff: Sodium Methylate Operator: Mari Ritchie RN Refinery Operator Vapor Recovery Unit: Silvana Abarca ST Scrub Person: Jennifer May [...] hemorrhoids. Javier Diaz MD 07/30/2023 12:17 PM [facility] 07-30-2023 Miscellaneous Notes EGD / COLONOSCOPY Procedure [...] See Anesthesia note for full detail. Staff: Sodium Methylate Operator: Mari Ritchie RN Refinery Operator Vapor Recovery Unit: Silvana Abarca ST Scrub Person: Jennifer May [...] PM documented in this encounter [facility] 07-30-2023 Attending History and physical note H&P and chart were reviewed. Patient was seen, evaluated and examined today at bedside. No interval change in history or plan. Source Note - Tavon Tovar APRN COLLAR RUNNER - 07/06/2023 3:28 PM EDT DATE OF VISIT: 07/06/2023 BED SPRING MAKER: Javier Diaz MD REQUESTING PROVIDER: None Pcp [...] She was seen at the ER in [place] with abdominal pain and bloating. She had [...] has a past surgical history that includes [place] tooth extraction. MEDICATIONS: Outpatient Medications Marked as [...] will schedule colonoscopy with Dr. Diaz in [place]. We will use [facility] for prep. MAC [...] APRN CNP-C 07/06/2023 3:[address] [facility] 07-30-2023 History and physical note H&P and chart were reviewed. Patient was seen, evaluated and examined today at bedside. No interval change in history or plan. Source Note - Tavon Tovar APRN CNP - 07/06/2023 3:28 PM EDT DATE OF VISIT: 07/06/2023 BED SPRING MAKER: Javier Diaz MD REQUESTING PROVIDER: None Pcp [...] She was seen at the ER in [place] with abdominal pain and bloating. She had [...] has a past surgical history that includes [place] tooth extraction. MEDICATIONS: Outpatient Medications Marked as [...] will schedule colonoscopy with Dr. Diaz in [place]. We will use [employer] for prep. MAC sedation. The risks were reviewed with the patient including bleeding, perforation, adverse events of sedation, infections, and missing lesions. Hold NSAID's for 5 days prior to procedure Scheduling staff to give patient pre-procedure written instructions. Start Omeprazole 40 mg PO daily. Reviewed above labs Further recommendations pending above testing. Signed: Tavon Tovar APRN COLLAR RUNNER-C 07/06/2023 3:28 PM documented in this encounter [facility] 04-01-2023 Note . MICRO - Microbiology [...] Locations *1: This test was performed at: [facility], [address] [place] [address], [facility] , [facility] ([place]) Evaluation + Plan note No data available for this section [facility] documented in this encounter [facility] No data available for this section [facility] Progress note No data available for this section [facility] Summary Purpose Family History No [...] DATE CREATED AUTHOR AUTHOR'S ORGANIZ ATION 03/27/2023 [facility] DATE CREATED AUTHOR AUTHOR'S ORGANIZ ATION 07/02/2023 [facility] ([place]) DATE CREATED AUTHOR AUTHOR'S ORGANIZ ATION 07/15/2023 [facility] DATE CREATED AUTHOR AUTHOR'S ORGANIZ ATION 08/03/2023 [facility] <item><item> Privacy Markings (unrecogniz ed section [...] Expiration Date V isits Requested Visits Authorized [id number] New Request 07/08/2023 08/08/2024 1 1 Continuous [...] BE BASED ON THE PRIMARY CLINICAL RECORDS. [facility] The car easily beat [facility]. provides no warranty or guarantee of the accuracy or completeness of information in this document.
[2023-11-02 14:28] VITALS: BP 111/61; PULSE 94; RESP 16; TEMP 36.6; O2SAT 100
== END 2023-11-02 13:02 | disposition home or self-care (01) ==
LOC: MEDOUTP 13:01
PROVIDERS: Referring Provider Advanced Practice Midwife; Visit Provider Advanced Practice Midwife
DX: E86.0 Dehydration (principal)
CPT/HCPCS: 96374; 96361; A4216; J2405

== ENCOUNTER → 2023-11-07 | Outpatient (CLI) | payer MEDICAID, SELFPAY ==
[2023-11-07 14:50] LABS: Absolute Lymphocyte Count 2.45 X10^3/uL (0.83-4.51); Absolute Neutrophil Count 8.4 X10^3/uL (2.0-7.7); Basophil# 0.05 X10^3/uL; Basophil% 0.4 % (0-1); Eosinophil# 0.08 X10^3/uL; Eosinophils% 0.7 % (0-5); Lymphocyte # 2.45 X10^3/ul (0.83-4.51); Lymphocyte % 20.4 % (19-41); Mean Corp Hgb Conc 32.5 g/dL (32-36); Mean Corpuscular Hgb 27.8 pg (27.0-32.0); Mean Corpuscular Volume 85.7 fL (81-99); Monocyte# 0.98 X10^3/uL; Monocyte% 8.2 % (0-10); NRBC Flagged by Analyzer 0 % (0-5); Neutrophil # 8.37 X10^3/uL (2.7-7.7); Neutrophil % 69.7 % (47-70); Platelet Count 288 K/mm3 (150-450); RBC Distribution Width CV 12.7 % (11.6-14.6); Red Blood Count 4.67 M/mm3 (4.2-5.4)
[2023-11-07 15:15] LABS: Free T3 2.2 pg/mL (2.18-3.98); T4 Free Direct 0.99 ng/dL (0.76-1.46); Thyroid Stim Hormone (TSH) 1.03 uIU/mL (0.358-3.74)
[2023-11-07 16:03] LABS: HIV - WCH Non-Reactive (Nonreactive); Hepatitis B Surface Antigen Non-Reactive (Nonreactive); Hepatitis C Antibody Non-Reactive (Nonreactive); Rubella IgG Reactive (Nonreactive); Syphilis Antibodies Non-reactive
== END | disposition home or self-care (01) ==
LOC: LAB 13:13
PROVIDERS: Referring Provider Advanced Practice Midwife; Visit Provider Advanced Practice Midwife
DX: O99.280 Endocrine, nutritional and metabolic diseases complicating pregnancy, unspecified trimester (principal); E03.9 Hypothyroidism, unspecified; Z3A.00 Weeks of gestation of pregnancy not specified
CPT/HCPCS: 36415; 84439; 84443; 84481; 85025; 86703; 86762; 86780; 86803; 86850; 86900; 86901; 87086; 87088; 87340

== ENCOUNTER 2023-11-09 13:06 | Outpatient (CLI) | payer MEDICAID, SELFPAY ==
[2023-11-09 13:19] VITALS: BP 118/74; PULSE 73; RESP 16; TEMP 36.5; O2SAT 100
[2023-11-09] MEDS: 0.9% NaCl Peripheral Flush Adult/Peds IV (13:25)
[2023-11-09] MEDS: Ondansetron 4 MG/2 ML Vial IV (13:30)
[2023-11-09] MEDS: Dextrose 5%-Lactated Ringers 1,000 ML 999 ML IV (13:30)
--- OUTSIDE RECORDS SUMMARY | 2023-11-09 14:06 | XMS RPT_ITS | CCD ---
Author Name Unknown Address [id number] [place] [address] Organization [facility] Care Team Providers Care Preparole Counseling Aide Name Role Phone Chavez KAMARA, Zeus Grimm Unavailable [phone] Required, No Pcp Unavailable Unavailable Chato Bailey [...] Reaction(s) Facility (2 sources) Hydroxychloroquine Drug Allergy [facility] (2 sources) Hydroxychloroquine; Translations: [hydroxychloroquine] Drug Allergy 3 [facility] Medications Current Medications Medication Drug Class(es) [...] mouth once daily WELLBUTRIN XL 300 MG [id number] One tablet by mouth daily BUPROPION HCL [id number] Esthela Sanders Problems Active Problems Problem Classification [...] 07-30-2023 Episodic Other aftercare (1 source) Other watermelon inspector (current) drug therapy; Translations: [Other penitentiary (current) drug therapy] Onset: 3 Episodic Other [...] 84 mm[Hg] Javier Diaz MD Work Phone: [phone] [address] 07-30-2023 12:42-0500 Heart rate 53 /min Javier Diaz MD Work Phone: [phone] [address] 07-30-2023 12:42-0500 Respiratory rate 21 /min Javier Diaz MD Work Phone: [phone] [place] [address] 07-30-2023 12:42-0500 SaO2% (BldA) [Mass fraction] 100 % Javier Diaz MD Work Phone: [phone] [place] [address] 07-30-2023 12:42-0500 Systolic blood pressure 132 mm[Hg] Javier Diaz MD Work Phone: [phone] [place] [address] 07-30-2023 12:20-0500 Body temperature 97.11 [degF] Javier Diaz MD Work Phone: [phone] [place] [address] 07-30-2023 09:41-0500 Body height 162.6 cm Javier Diaz MD Work Phone: [phone] [place] [address] 07-30-2023 09:41-0500 Body mass index (BMI) [Ratio] 30.16 kg/m2 Javier Diaz MD Work Phone: [phone] [place] [address] 07-30-2023 09:41-0500 Body weight 79.7 kg Javier Diaz MD Work Phone: [phone] [place] [address] 03-21-2023 14:46-0400 Diastolic blood pressure 71 mm[Hg] No Pcp Required [facility] 03-21-2023 14:46-0400 Heart rate 61 /min No Pcp Required [facility] 03-21-2023 14:46-0400 Respiratory rate 16 /min No Pcp Required [facility] 03-21-2023 14:46-0400 SaO2% (BldA) [Mass fraction] 100 % No Pcp Required [facility] 03-21-2023 14:46-0400 Systolic blood pressure 120 mm[Hg] No Pcp Required [facility] 03-21-2023 13:01-0400 Body temperature 97.88 [degF] No Pcp Required [facility] 03-21-2023 13:01-0400 Body weight 78 kg No Pcp Required [facility] 11-09-2022 19:41-0500 Body height 162 cm No Pcp Required [facility] 11-09-2022 19:41-0500 Body temperature 98.78 [degF] No Pcp Required [facility] 11-09-2022 19:41-0500 Diastolic blood pressure 83 mm[Hg] No Pcp Required [facility] 11-09-2022 19:41-0500 Heart rate 108 /min No Pcp Required [facility] 11-09-2022 19:41-0500 Respiratory rate 18 /min No Pcp Required [facility] 11-09-2022 19:41-0500 SaO2% (BldA) [Mass fraction] 99 % No Pcp Required [facility] 11-09-2022 19:41-0500 Systolic blood pressure 130 mm[Hg] No Pcp Required [facility] 02-27-2017 12:50-0400 BMI (Body Mass Index) 23.31 kg/m2 Zeus Byrne MD [facility] Work Phone: 02-27-2017 12:50-0400 Body Temperature 98.3 [degF] Zeus Byrne MD [facility] Work Phone: 02-27-2017 12:50-0400 BP Diastolic 97 mm[Hg] Zeus Byrne MD [facility] Work Phone: 02-27-2017 12:50-0400 BP Systolic 134 mm[Hg] Zeus Byrne MD [facility] Work Phone: 02-27-2017 12:50-0400 Height 162.56 cm [address] Byrne MD [facility] Work Phone: 02-27-2017 12:50-0400 Pulse (Heart Rate) 87 /min Zeus Byrne MD [facility] Work Phone: 02-27-2017 12:50-0400 Respiratory Rate 20 /min Zeus Byrne MD [facility] Work Phone: 02-27-2017 12:50-0400 Weight 61.6 [address] Byrne MD [facility] Work Phone: Encounters Encounter Date Encounter Type Care Provider Facility Start: 07-30-2023 End: 07-30-2023 ambulatory JAVIER DIAZ [facility] Start: 07-30-2023 End: 07-30-2023 Subsequent hospital visit by physician Javier Diaz MD Work Phone: [facility] Start: 07-06-2023 End: 07-06-2023 ambulatory TAVON TOVAR [facility] Start: 06-28-2023 End: 06-28-2023 ambulatory KURT YAÑEZ MD Facility:A Start: 06-28-2023 End: 06-28-2023 SAME DAY STAY KURT YAÑEZ MD [facility] Start: 04-10-2023 ambulatory TAVON TOVAR [facility] Start: 04-09-2023 ambulatory TAVON TOVAR [facility] Start: 04-09-2023 End: 04-09-2023 ambulatory TAVON TOVAR [facility] Start: 04-06-2023 ambulatory TAVON TOVAR [facility] Start: 03-30-2023 End: 03-31-2023 Emergency department patient visit PATIENT UNSURE PHYSICIAN Facility:A Start: 03-21-2023 End: 03-21-2023 Emergency department patient visit Ely Walter [facility] Emergency 09 Start: 11-09-2022 End: 11-09-2022 Emergency department patient visit Chato Bailey [facility] Procedures Date Procedure Procedure Detail Performing Clinician Start: 07-30-2023 Urine test visual color cmprsn meths Tavon Tovar GREENHOUSE TECHNIC[employer] Work Phone: None (qualifier value) KURT YAÑEZ MD Plan of Treatment Date Care Activity Detail Author Start: 4 ANNUAL WELLNESS VISIT ANNUAL WELLNESS VISIT [facility] Start: 3 End: 3 COLONOSCOPY DIAGNOSTIC COLONOSCOPY DIAGNOSTIC Blood in stool Nausea Lower abdominal pain Bloating Gastroesophageal reflux disease without esophagitis 07/30/2023 11:37 AM EST [facility] Start: 3 End: 3 Esophagogastroduodenoscopy ESOPHAGOGASTRODUODENOSCOPY Blood in stool Nausea Lower abdominal pain Bloating Gastroesophageal reflux disease without esophagitis 07/30/2023 11:37 AM EST [facility] Start: 3 Influenza vaccination given INFLUENZA VACCINE (#1) [facility] Start: 1 Administration of diphtheria + tetanus + acellular pertussis vaccine DTAP/TDAP/TD VACCINE (7 - Td or Tdap) [facility] Start: 7 End: 7 Incise external hemorrhoid Incision of thrombosed hemorrhoid, external [facility] Work Phone: Start: 8 Depression screening using PHQ-9 (Patient Health Questionnaire 9) score DEPRESSION SCREENING [facility] Start: 7 Thyroid stimulating hormone measurement TSH [facility] Start: 6 COVID-19 VACCINE (#1) COVID-19 VACCINE (#1) [facility] Start: 6 Screening for malignant neoplasm of cervix PAP SMEAR [facility] Oxygen Therapy Nasal Cannula; Liters Per Minute: 2.0 LPM; RT may modify oxygen administration per policy: Yes During procedure Oxygen Therapy Nasal Cannula; Liters Per Minute: 2.0 LPM; RT may modify oxygen administration per policy: Yes During procedure Respiratory Care Routine Continuous until discontinued starting 07/30/2023 [facility] Payers Date Payer Category Payer Unknown [id number] 2022 Unknown 1995 Unknown [id number] 2.16.8 [id number] 1995 Unknown [id number] 2.16.8 [id number] 1995 Unknown [id number] 2.16.8 [id number] 1995 Unknown [id number] 2.16.8 [id number] 1995 Unknown [id number] 2.16. [id number] 1995 Unknown [id number] 2.16. [id number] 1995 Unknown [id number] 2.16. [id number] 1995 Unknown [id number] 2.16. [id number] 1995 Unknown [id number] 2.16. [id number] Social History Date Type Detail Facility [facility] Tobacco smoking consumption unknown [facility] Start: 04-09-2023 Tobacco smoking status Never smoked tobacco (finding) [facility] Sex Assigned At Sex [facility] Start: 04-09-2023 Tobacco use and exposure Smokeless tobacco non-user [facility] Start: 07-30-2023 Alcohol intake Current drinke r of alcohol (finding) [facility] Start: 07-03-2023 End: 07-30-2023 History of Social function [facility] Start: 07-03-2023 End: 07-30-2023 Tobacco use panel [facility] Brief social Pay for mortgage/rent Not on file [facility] Start: 07-06-2023 Alcohol Comment Socially [facility] Start: 1995 Sex Assigned At Not on file [facility] Clinical Notes 04-01-2023 to [...] 07/30/2023 12:23 PM documented in this encounter [facility] 07-30-2023 Hospital Discharge instructions Brendan Rock RN [...] you have any questions, call your physician's office.[phone] Finding and Recommendation 1. Essentially normal EGD. [...] and understand my discharge instructions. 07/30/2023 NURSE: Home Service Consultant The following attachments cannot be sent through Care Everywhere.High-Fiber Diet (Honduran [place] Helen[place])documented in this encounter [facility] 07-30-2023 Surgery Surgical operation note EGD / [...] See Anesthesia note for full detail. Staff: Equipment Operator/Laborer/Supervisor: Mari Ritchie RN Airplane Charter Clerk: Silvana Abarca ST Scrub Person: Jennifer May [...] hemorrhoids. Javier Diaz MD 07/30/2023 12:[address] [facility] 07-30-2023 Miscellaneous Notes EGD / COLONOSCOPY [...] See Anesthesia note for full detail. Staff: Equipment Operator/Laborer/Supervisor: Mari Ritchie RN Airplane Charter Clerk: Silvana Abarca ST Scrub Person: Jennifer May [...] 07/30/2023 12:17 PM documented in this encounter [facility] 07-30-2023 Attending History and physical note H&P and chart were reviewed. Patient was seen, evaluated and examined today at bedside. No interval change in history or plan. Source Note - Tavon Tovar APRN [employer] - 07/06/2023 3:28 PM EDT DATE OF VISIT: 07/06/2023 ACCOUNT SUPPORT ASSOCIATE: Javier Diaz MD REQUESTING PROVIDER: None Pcp [...] She was seen at the ER in [place] with abdominal pain and bloating. She had [...] has a past surgical history that includes [place] tooth extraction. MEDICATIONS: Outpatient Medications Marked as [...] will schedule colonoscopy with Dr. Diaz in [place]. We will use [facility] for prep. MAC [...] Tavon Tovar APRN CNP-C 07/06/2023 3:28 PM [facility] 07-30-2023 History and physical note H&P and chart were reviewed. Patient was seen, evaluated and examined today at bedside. No interval change in history or plan. Source Note - Tavon Tovar APRN CNP - 07/06/2023 3:28 PM EDT DATE OF VISIT: 07/06/2023 ACCOUNT SUPPORT ASSOCIATE: Javier Diaz MD REQUESTING PROVIDER: None Pcp [...] She was seen at the ER in [place] with abdominal pain and bloating. She had [...] has a past surgical history that includes [place] tooth extraction. MEDICATIONS: Outpatient Medications Marked as [...] will schedule colonoscopy with Dr. Diaz in [place]. We will use [facility] for prep. MAC sedation. The risks were reviewed with the patient including bleeding, perforation, adverse events of sedation, infections, and missing lesions. Hold NSAID's for 5 days prior to procedure Scheduling staff to give patient pre-procedure written instructions. Start Omeprazole 40 mg PO daily. Reviewed above labs Further recommendations pending above testing. Signed: Tavon Tovar APRN [employer]-C 07/06/2023 3:28 PM documented in this encounter [facility] 04-01-2023 Note . MICRO - Microbiology PROCEDURE: [...] Locations *1: This test was performed at: [facility], [address] [place] [address], [facility] ([place]) Evaluation + Plan note No data available for this section [facility] No data available for this section [facility] Progress note No data available for this section [facility] Summary Purpose Family History No Family [...] DATE CREATED AUTHOR AUTHOR'S ORGANIZ ATION 07/02/2023 [facility] ([place] DATE CREATED AUTHOR AUTHOR'S ORGANIZ ATION 07/15/2023 [facility] DATE CREATED AUTHOR AUTHOR'S ORGANIZ ATION 08/03/2023 [facility] <item><item> Privacy Markings (unrecogniz ed [...] Expiration Date V isits Requested Visits Authorized [id number] New Request 07/08/2023 08/08/2024 1 1 Continuous [...] BE BASED ON THE PRIMARY CLINICAL RECORDS. [facility] [employer] [facility]. provides no warranty or guarantee of the accuracy or completeness of information in this document.
[2023-11-09 14:49] VITALS: BP 115/67; PULSE 84; RESP 16; O2SAT 100
== END 2023-11-09 13:07 | disposition home or self-care (01) ==
LOC: MEDOUTP 13:06
PROVIDERS: Referring Provider Advanced Practice Midwife; Visit Provider Advanced Practice Midwife
DX: E86.0 Dehydration (principal)
CPT/HCPCS: 96374; 96361; A4216; J2405

== ENCOUNTER → 2024-01-21 | Outpatient (CLI) | payer MEDICAID, SELFPAY ==
--- NOTE | 2024-01-21 | MISC_PTH ---
PATIENT: MARIA ISABEL SOLITARIO LOC: [facility] U#:[id number] AGE/SX: 28/F ROOM: RE01/21/[address]: Dr. Carlie Sharif DO : 1995 BED: DIS: 01/21/2024 SPEC #: [id number] RECD: 01/22/24 09:28 STATUS: ESAU DIONY #: [id number] NIGEL: 01/21/24 00:[address]: Carlie Sharif DEPT: SURGICAL PATHOLOGY RECD BY: Ziggy Rangel ENTERED: 01/22/24 09:28 SP TYPE: MISC SUSAN DR: Sagrario Primary Care Phys Tissues: Nipple Procedures: Surgery Specimen Level IV HEADER OPERATION: Skin tag removal PRE-OP DIAGNOSIS: Skin tag TISSUE SUBMITTED: Skin tag on nipple MICROSCOPIC DIAGNOSIS Skin tag, excision: Fibroepithelial polyp (skin tag). FREDDIE/mr 01/23/2024 MICROSCOPIC DESCRIPTION Slides are reviewed. GROSS DESCRIPTION Received is one container labeled with the patient's name and not further designated. The specimen consists of one irregular fragment of berman light brown skin that measures 0.2 x 0.1 x 0.1 cm. The specimen is totally submitted in one cassette. FREDDIE/ 01/22/24 TC:5 CPT:33114
== END | disposition home or self-care (01) ==
LOC: LABSPEC 14:58
PROVIDERS: Referring Provider Obstetrics & Gynecology; Visit Provider Obstetrics & Gynecology
DX: L91.8 Other hypertrophic disorders of the skin (principal)
CPT/HCPCS: 88305

== ENCOUNTER 2024-02-12 16:05 | Emergency (ER) | payer MEDICAID, SELFPAY ==
[2024-02-12 16:06] VITALS: BP 123/72; PULSE 78; RESP 18; TEMP 36.4; O2SAT 99; BMI 35.0
--- NOTE | 2024-02-12 16:10 | ED.RN ---
Called OB for consult on pt for being over 20 weeks. OB said to be seen in ER but will come see pt and check baby.
--- NOTE | 2024-02-12 16:58 | EX.ED.DYSGE1 ---
HPI History of Present Illness Chief Complaint: Other, Pain/Inj Narrative Narrative: 28-year-old female, G2, P0 at approximately 24 weeks gestation presents with hemorrhoid that she has had for about 2 weeks. She states she seen her TECHNICAL MANAGER [employer] about this and is taking prune juice, and has Preparation H that she has been applying 3 times a day. She states that sometimes she has bleeding with bowel movements. She states it is painful for her to sit, and is also painful when she has a bowel movement. She states about the size of a grape. [facility] Medical History FH: spina bifida Seasonal allergies Rheumatoid arthritis Hypothyroid Home Medications ?Medication ?Instructions ?Recorded ?Last Taken ?Type PNV 153-FA 400 mcg-om3 35 mg-dha 1 tab PO DAILY 04/03/23 Unknown History 25 mg-epa 5 mg-fish oil chew tablet doxylamine 10 mg-pyridoxine (vit 2 tab PO QHS 30 days #60 tabs 10/14/23 Unknown Rx B6) 10 mg tablet,delayed release (Diclegis) promethazine 25 mg tablet 25 mg PO TID PRN nausea and 10/14/23 Unknown Rx vomiting 7 days #21 tabs aspirin 81 mg tablet,delayed 81 mg PO DAILY #60 tabs 10/30/23 Unknown Rx release (Adult Aspirin Regimen) ondansetron 4 mg disintegrating 4 mg PO Q6H #90 tabs 10/30/23 Unknown Rx tablet levothyroxine 50 mcg tablet 50 mcg PO DAILY #30 tabs 01/11/24 Unknown Rx (Euthyrox) omeprazole magnesium 20 mg 20 mg PO BID #30 tabs 01/11/24 Unknown Rx tablet,delayed release (Prilosec OTC) hydrocortisone 1 % topical cream 1 applic topical DAILY PRN itching 01/24/24 Unknown Rx (Preparation H Hydrocortisone) #28.35 grams docusate sodium 50 mg capsule 50 mg PO BID #60 caps 02/12/24 Unknown Rx (Colace Clear) hydrocortisone 2.5 % topical cream 1 applic UT BID #30 grams 02/12/24 Unknown Rx with perineal applicator (Anusol-HC) Allergy/AdvReac Type Severity Reaction Status Date / Time hydroxychloroquine (From Allergy Hives Verified 02/12/24 16:08 Plaquenil) Family History Father Heart disease Mother Crohn's disease Surgical History H/O colonoscopy H/O dilation and curettage [place] teeth extracted Social History adopted: No household members: significant other current occupational status: unemployed pets and animals: Yes (Not managing litterbox) pets and animals: cat(s) history of recent travel: No sexually active: Yes Smoking Status: Never smoker alcohol intake: never substance use type: does not use well-balanced diet: daily or most days caffeine: No eating out: 1-3 times/week during the past year weight has: remained stable what type of physical activity do you participate in: none pierce/episcopal: Latter-Day seatbelt use: always do you feel safe at home: Yes additional social history: Mateo [employer]s [employer] ROS ROS ED ROS Narrative No fevers or chills. Occasional rectal bleeding. Positive rectal pain secondary to grape sized hemorrhoid. No vaginal bleeding or cramping. No problems with currently except for nausea throughout her for which she takes Zofran daily. EXAM Physical Exam Narrative Exam Narrative: Afebrile. Vital signs noted. HEENT: Normocephalic. Atraumatic. PERRL, EOMI. Neck soft and supple. No point tenderness or step off. Cardiovascular: Regular rate and rhythm. No murmurs, rubs, or gallops appreciated. Respiratory: No tachypnea. Lungs clear to auscultation bilaterally. Gastrointestinal: Abdomen soft, nontender, with normoactive bowel sounds. No rebound or guarding. Chaperoned rectal examination reveals nonthrombosed hemorrhoid approximately 1 and half centimeters without active bleeding. Neurological: Awake. Alert. Nonfocal, nonlateralizing. Skin: No rash. Normal color. No pallor. Musculoskeletal: No pedal edema. Full range of motion extremities. Const Vital Signs: 02/12/24 16:06 02/12/24 16:46 Temperature 97.6 F L Temperature Source Temporal Pulse Rate 78 Respiratory Rate 18 Respiratory Effort Normal Non-Labored Respiratory Pattern Normal Blood Pressure 123/72 H Blood Pressure Mean 89 Pulse Ox 99 Oxygen Delivery Method Room Air MDM MDM MDM Narrative Medical decision making narrative: Differential diagnosis is not applicable. As the patient has a nonthrombosed hemorrhoid, I do not feel that incision and drainage is indicated. I will change her prescription to Anusol HC with hydrocortisone and it to apply twice a day, and I will change her stool softener to Colace twice a day. I feel she can be discharged to follow-up with [employer]. Disposition is discharged in stable condition. Discharge Plan Triage Chief Complaint: Other, Pain/Inj ED Provider: Anderson Quispe Dx/Rx/DC Orders Clinical Impression: Hemorrhoids during , antepartum Instructions: Treating Hemorrhoids: Self-Care, ED Hemorrhoids Prescriptions: New hydrocortisone [Anusol-HC] 2.5 % cream with perineal applicator 1 applic UT BID Qty: 30 0RF Colace Clear 50 mg capsule 50 mg PO BID Qty: 60 0RF No Action PNV no.[id number] 400 mcg-35 mg- 25 mg-5 mg tablet,chewable 1 tab PO DAILY ondansetron 4 mg tablet,disintegrating 4 mg PO Q6H Qty: 90 2RF aspirin [Adult Aspirin Regimen] 81 mg tablet,delayed release (DR/EC) 81 mg PO DAILY Qty: 60 4RF omeprazole magnesium [Prilosec OTC] 20 mg tablet,delayed release (DR/EC) 20 mg PO BID Qty: 30 6RF levothyroxine [Euthyrox] 50 mcg tablet 50 mcg PO DAILY Qty: 30 3RF promethazine 25 mg tablet 25 mg PO TID PRN (Reason: nausea and vomiting) 7 Days Qty: 21 0RF doxylamine-pyridoxine (vit B6) [Diclegis] 10-10 mg tablet,delayed release (DR/EC) 2 tab PO QHS 30 Days Qty: 60 0RF hydrocortisone [Preparation H Hydrocortisone] 1 % cream 1 applic topical DAILY PRN (Reason: itching) Qty: 28.35 0RF Primary Care Provider: Care Physician,No Primary Referrals: Carlie Sharif DO [Med Staff - Active Staff] - 1 Week if not improving Care Physician,No Primary [Primary Care Provider] - Print Language: Monegasque Disposition Disposition: Home, Self Care
== END 2024-02-12 17:17 | disposition home or self-care (01) ==
PROVIDERS: Emergency Provider Emergency Medicine; Visit Provider Emergency Medicine
DX: O22.42 Hemorrhoids in pregnancy, second trimester (principal); Z3A.24 24 weeks gestation of pregnancy; O99.284 Endocrine, nutritional and metabolic diseases complicating childbirth; E03.9 Hypothyroidism, unspecified
CPT/HCPCS: 99282

== ENCOUNTER → 2024-03-10 | Outpatient (CLI) | payer MEDICAID, SELFPAY ==
[2024-03-10 14:36] LABS: Absolute Lymphocyte Count 2.49 X10^3/uL (0.83-4.51); Absolute Neutrophil Count 8.2 X10^3/uL (2.0-7.7); Basophil# 0.03 X10^3/uL; Basophil% 0.2 % (0-1); Eosinophil# 0.11 X10^3/uL; Eosinophils% 0.9 % (0-5); Hematocrit 33.9 % (37-47); Lymphocyte # 2.49 X10^3/ul (0.83-4.51); Lymphocyte % 20.6 % (19-41); Mean Corp Hgb Conc 32.4 g/dL (32-36); Mean Corpuscular Hgb 27.4 pg (27.0-32.0); Mean Corpuscular Volume 84.3 fL (81-99); Mean Platelet Vol. 8.8 fl (6.2-12.0); Monocyte# 1.11 X10^3/uL; Monocyte% 9.2 % (0-10); NRBC Flagged by Analyzer 0 % (0-5); Neutrophil # 8.24 X10^3/uL (2.7-7.7); Neutrophil % 68.1 % (47-70); Platelet Count 299 K/mm3 (150-450); Red Blood Count 4.02 M/mm3 (4.2-5.4); White Blood Count 12.1 K/mm3 (4.4-11.0)
[2024-03-10 14:59] LABS: Glucose Challenge Gest 1H 50g 126 mg/dL (70-140)
[2024-03-10 15:27] LABS: HIV - WCH Non-Reactive (Nonreactive); Syphilis Antibodies Non-reactive
== END | disposition home or self-care (01) ==
LOC: LAB 14:09
PROVIDERS: Referring Provider Advanced Practice Midwife; Visit Provider Advanced Practice Midwife
DX: O09.91 Supervision of high risk pregnancy, unspecified, first trimester (principal); Z13.1 Encounter for screening for diabetes mellitus; Z3A.00 Weeks of gestation of pregnancy not specified
CPT/HCPCS: 36415; 82950; 85025; 86703; 86780

== ENCOUNTER 2024-04-05 10:25 | Outpatient (CLI) | payer MEDICAID, SELFPAY ==
[2024-04-05 10:40] VITALS: PULSE 102; O2SAT 99
[2024-04-05 10:44] VITALS: BP 127/82; PULSE 85; RESP 16; TEMP 37.3; O2SAT 99
[2024-04-05 12:01] LABS: ALB/GLOB Ratio 0.6 RATIO (0.9-2.4); AST(SGOT) 19 U/L (15-37); Alanine Aminotransfer ALT/SGPT 23 U/L (13-56); Albumin, Serum 2.4 g/dL (3.2-5.0); Alkaline Phosphatase 109 U/L (45-117); Anion Gap 7 (5-15); BUN 11 mg/dL (7-18); BUN/Creat Ratio 18.9 RATIO (10-20); Calcium,Total 8.5 mg/dL (8.5-10.1); Chloride 109 mmol/L (98-107); Creatinine, Serum 0.58 mg/dL (0.55-1.02); EST Glomerular Filtration Rate 131 mL/min (>60); Est Glom Filt Rate - Afr Amer 158 mL/min (>60); Globulin 4.1 g/dL (2.2-4.2); Glucose 113 mg/dL (74-106); Potassium 3.7 mmol/L (3.5-5.1); Protein, Total 6.5 g/dL (6.4-8.2); Sodium Level 137 mmol/L (136-145)
[2024-04-05 13:01] VITALS: BMI 37.9
--- NOTE | 2024-04-05 13:17 | OB.TRI.HP_ITS ---
HPI - General HPI Narrative MARIA ISABEL SOLITARIO, is a 28 F who presents at 31.3 weeks with decreased movement with intense itching on soles of feet and lower extremities. this itching is keeping her up at night and is waking up scratching. Maternal Data Information LEN Calculator Estimated Delivery Date Method Current WG Current Estimate 06/04/24 LMP (Certain) 31w 3d PFSH PFSH Medical History FH: spina bifida Seasonal allergies Rheumatoid arthritis Hypothyroid Home Medications ?Medication ?Instructions ?Recorded ?Last Taken ?Type PNV 153-FA 400 mcg-om3 35 mg-dha 1 tab PO DAILY 04/03/23 Unknown History 25 mg-epa 5 mg-fish oil chew tablet doxylamine 10 mg-pyridoxine (vit 2 tab PO QHS 30 days #60 tabs 10/14/23 Unknown Rx B6) 10 mg tablet,delayed release (Diclegis) aspirin 81 mg tablet,delayed 81 mg PO DAILY #60 tabs 10/30/23 Unknown Rx release (Adult Aspirin Regimen) levothyroxine 50 mcg tablet 50 mcg PO DAILY #30 tabs 01/11/24 Unknown Rx (Euthyrox) omeprazole magnesium 20 mg 20 mg PO BID #30 tabs 01/11/24 Unknown Rx tablet,delayed release (Prilosec OTC) hydrocortisone 1 % topical cream 1 applic topical DAILY PRN itching 01/24/24 Unknown Rx (Preparation H Hydrocortisone) #28.35 grams docusate sodium 50 mg capsule 50 mg PO BID #60 caps 02/12/24 Unknown Rx (Colace Clear) hydrocortisone 2.5 % topical cream 1 applic PA BID #30 grams 02/12/24 Unknown Rx with perineal applicator (Anusol-HC) lidocaine 5 % topical ointment 1 applic topical DAILY PRN pain 02/13/24 Unknown Rx #50 grams ondansetron 4 mg disintegrating 4 mg PO Q6H #90 tabs 02/20/24 Unknown Rx tablet ursodiol 300 mg capsule 300 mg PO BID #60 caps 04/05/24 Unknown Rx Allergy/AdvReac Type Severity Reaction Status Date / Time hydroxychloroquine (From Allergy Hives Verified 04/05/24 11:46 Plaquenil) Family History Father Heart disease Mother Crohn's disease Surgical History H/O colonoscopy H/O dilation and curettage [place] teeth extracted Social History adopted: No household members: significant other current occupational status: unemployed pets and animals: Yes (Not managing litterbox) pets and animals: cat(s) history of recent travel: No sexually active: Yes Smoking Status: Never smoker alcohol intake: never substance use type: does not use well-balanced diet: daily or most days caffeine: No eating out: 1-3 times/week during the past year weight has: remained stable what type of physical activity do you participate in: none pierce/shinto: Adventism seatbelt use: always do you feel safe at home: Yes additional social history: BF- [employer] History 2 Elective abortions 1 Hx Para 0 Spontaneous abortions Hx # Term Pregnancies Ectopic pregnancies Hx # Pregnancies Multiple births # of living children 0 Past Pregnancies Del. Date Name GA/Weeks Outcome Route Bth Weight Infant Gen Labor Lgth Anesthesia Del Locatn Provider FOB 04/12/23 9 spontaneous Delivery Date: 04/12/23 Last Updated by: Dania Elise D&Amie x 2, retained products, [facility] Visit Details Expected Delivery Route/Plan Labor Preferences- CB/BF classes: declines labor support person: Prakash labor intervention preferences: [] pain management options preferred: undecided cut cord/dad catch: yes : yes PP control planned: discussed discussed possible routes of delivery and associated risks: [] special requests: [] Plans Covid status: [] Flu vaccine: declines Tdap vaccine: [] Rhogam: na LARC form signed: yes Problem list reviewed and updated with the most current plan of care details and appropriate orders placed. Relevant counseling for the gestational age provided. Continue routine care and follow up unless otherwise noted in visit notes/problem list details OB Flowsheet Initial Weight: Not Recorded Date -?-?-?-?-?-?-?-?-?-?-?-?- EGA Weight BP Urine Prot -?-?-?-?-?-?-?-?-?-?-?-?- Glucose FHR FuHt Pres Dilation -?-?-?-?-?-?-?-?-?-?-?-?- Effaced St Visit Note 10/19/23 -?-?-?-?-?-?-?-?-?-?-?-?- 7w 2d 178 lb 8 oz 128/83 -?-?-?-?-?-?-?-?-?-?-?-?- 168 -?-?-?-?-?-?-?-?-?-?-?-?- KW- CRL cons wit h dates. having increased N/V and may need additional IV fluids. Hx Hypothyroid- labs ordered. KW- CRL cons with dates. hav ing increased N/V and may need additional IV fluids. Hx Hypothyroid- labs ordered. NIPT and Carrier next visit. will RTO in 2 weeks for heartbeat check 10/30/23 -?-?-?-?-?-?-?-?-?-?-?-?- 8w 6d 178 lb 122/83 Negative -?-?-?-?-?-?-?-?-?-?-?-?- Negative 168 -?-?-?-?-?-?-?-?-?-?-?-?- No vb/cramping. refill on zofran today. Asa 81mg for covid during 1st trimester. NIPT box today 11/14/23 -?-?-?-?-?-?-?-?-?-?-?-?- 11w 0d 183 lb 120/78 Negative -?-?-?-?-?-?-?-?-?-?-?-?- Negative 160 -?-?-?-?-?-?-?-?-?-?-?-?- MH-No VB. Still w N&V. Enc to take zofran Q6 hr. Gaining weight, keeping food/fluid down. 12/12/23 -?-?-?-?-?-?-?-?-?-?-?-?- 15w 0d 187 lb 4 oz 133/82 Nega tive -?-?-?-?-?-?-?-?-?-?-?-?- Negative 158 -?-?-?-?-?-?-?-?-?-?-?-?- LC- no vb/crampi ng- scheduled today as cat jumped on abdomen and was having cramping following. +FM on handheld us. 01/11/24 -?-?-?-?-?-?-?-?-?-?--?-?- 19w 2d 194 lb 4 oz 108/68 Nega tive -?-?-?-?-?-?-?-?-?-?-?-?- Negative 148 -?-?-?-?-?-?-?-?-?-?-?-?- JV- no lof, vagi nal bleeding, or cramping. has a skin tag on her left breast/nipple. She wants this removed. rto in 1-2 weeks for skin tag removal. 01/21/24 -?-?-?-?-?-?-?-?-?-?-?-?- 20w 5d 201 lb 2 oz 109/73 -?-?-?-?-?-?-?-?-?-?-?-?- 150 -?-?-?-?-?-?-?-?-?-?-?-?- JV- skin tag on nipple removed today. see procedure note. 02/11/24 -?-?-?-?-?-?-?-?-?-?-?-?- 23w 5d 202 lb 8 oz 102/69 -?-?-?-?-?-?-?-?-?-?-?-?- 145 24 -?-?-?-?-?-?-?-?-?-?-?-?- KW- no vb/crampi ng. good fm. normal US. desires Fresh Test. many questions answered today. 02/13/24 -?-?-?-?-?-?-?-?-?-?-?-?- 24w 0d 206 lb 108/71 Negative -?-?-?-?-?-?-?-?-?-?-?-?- Negative 140 -?-?-?-?-?-?-?-?-?-?-?-?- KW- no vb/crampi ngAlondra espino fm. work in for external thrombosed hemorrhoid, had mentioned at last appt but declined exam because she thought it resolved. today it is about the size of a grape- approx 2 cm in size. very painful and was seen in ER yesterday. Consult for general surgery placed to possibly drain. 03/10/24 -?-?-?-?-?-?-?-?-?-?-?-?- 27w 5d 212 lb 2 oz 124/85 Nega tive -?-?-?-?-?-?-?-?-?-?-?-?- Negative 150 -?-?-?-?-?-?-?-?-?-?-?-?- MH-NO VB, LOF. G ood FM. 03/24/24 -?-?-?-?-?-?-?-?-?-?-?-?- 29w 5d 216 lb 133/81 Negative -?-?-?-?-?-?-?-?-?-?-?-?- Negative 146 30 -?-?-?-?-?-?-?-?-?-?-?-?- MH-No VB, LOF. G ood FM. Some depression but no thoughts of self harm. Enc counseling. Declines meds. Physical Exam Const alert, oriented x3 and no apparent distress Resp normal respiratory effort, normal air movement, no retractions and no use of accessory muscles Cardio regular rate and regular rhythm GI soft to palpation and non-tender Inspection: Palpation: soft Rectal Exam: deferred no CVA tenderness and external exam normal Bimanual Exam - Vag & Uterus: uterus non-tender and other gravid uterus, normal for gestational age OB / External & Speculum: Negative for herpetic lesions Manual OB Exam: estimated gestational size appropriate and presentation cephalic Amniotic Fluid: no amniotic fluid noted Extremity normal to inspection and full ROM Neuro Motor Exam: strength 5/5 throughout and muscle tone normal throughout Deep Tendon Reflexes: Rt Patellar (L4): 2+ and Lt Patellar (L4): 2+ NST FHR Rate Baby A Variability:: Moderate Accelerations:: 15 x 15 Decelerations:: None NST Reactive:: Yes FHR Category:: Category I Assessment & Plan (1) Pruritus of : COMMENT: normal LFT. bile acids pending intense itching- suspected cholestasis- started on ursodiol 300mg bid. reactive nst in wp. Charges/Coding Visit Charges Office Visits / Consults: 34194 OV L3 Est 20min Procedures Urinary/Genital 52xxx-59xxx: 67783-45 non-stress test Interp Multi Select Codes Urinary/Genital Urinary/Genital CPT Codes: 84300-86 non-stress test Interp
== END 2024-04-05 12:35 | disposition home or self-care (01) ==
LOC: WPOUT 10:28 → WP 10:29
PROVIDERS: Referring Provider Registered Nurse; Visit Provider Registered Nurse
DX: O99.713 Diseases of the skin and subcutaneous tissue complicating pregnancy, third trimester (principal); O36.8130 Decreased fetal movements, third trimester, not applicable or unspecified; Z79.899 Other long term (current) drug therapy; L29.9 Pruritus, unspecified; Z3A.31 31 weeks gestation of pregnancy
CPT/HCPCS: 36415; 59025; 59050; 80053; 99221; G0378

== ENCOUNTER → 2024-05-13 | Outpatient (CLI) | payer MEDICAID, SELFPAY ==
[2024-05-13 17:20] LABS: Absolute Neutrophil Count 9.3 X10^3/uL (2.0-7.7); Basophil# 0.04 X10^3/uL; Basophil% 0.3 % (0-1); Eosinophil# 0.09 X10^3/uL; Eosinophils% 0.7 % (0-5); Hematocrit 31.4 % (37-47); Hemoglobin 9.7 g/dL (12.0-15.0); Lymphocyte % 17.5 % (19-41); Mean Corp Hgb Conc 30.9 g/dL (32-36); Mean Corpuscular Hgb 23.4 pg (27.0-32.0); Mean Corpuscular Volume 75.7 fL (81-99); Mean Platelet Vol. 9.5 fl (6.2-12.0); Monocyte# 1.25 X10^3/uL; Monocyte% 9.5 % (0-10); NRBC Flagged by Analyzer 0 % (0-5); Neutrophil # 9.34 X10^3/uL (2.7-7.7); Neutrophil % 70.9 % (47-70); Platelet Count 327 K/mm3 (150-450); RBC Distribution Width CV 15.6 % (11.6-14.6); RBC Distribution Width SD 42.4 fl (35.1-43.9); Red Blood Count 4.15 M/mm3 (4.2-5.4); White Blood Count 13.2 K/mm3 (4.4-11.0)
[2024-05-13 18:28] LABS: Protein, Urine (Random) 49.3 mg/dL (<11.9); Protein:Creat Ratio 239 mg/g CRE (0-200)
[2024-05-13 18:31] LABS: ALB/GLOB Ratio 0.5 RATIO (0.9-2.4); AST(SGOT) 18 U/L (15-37); Alanine Aminotransfer ALT/SGPT 30 U/L (13-56); Albumin, Serum 2.3 g/dL (3.2-5.0); Alkaline Phosphatase 180 U/L (45-117); Anion Gap 6 (5-15); BUN 9 mg/dL (7-18); BUN/Creat Ratio 12.3 RATIO (10-20); Chloride 108 mmol/L (98-107); Creatinine, Serum 0.73 mg/dL (0.55-1.02); EST Glomerular Filtration Rate 100 mL/min (>60); Est Glom Filt Rate - Afr Amer 121 mL/min (>60); Globulin 4.6 g/dL (2.2-4.2); Glucose 120 mg/dL (74-106); Potassium 4.2 mmol/L (3.5-5.1); Protein, Total 6.9 g/dL (6.4-8.2); Sodium Level 137 mmol/L (136-145)
== END | disposition home or self-care (01) ==
PROVIDERS: Referring Provider Obstetrics & Gynecology; Visit Provider Obstetrics & Gynecology
DX: O09.91 Supervision of high risk pregnancy, unspecified, first trimester (principal); Z3A.00 Weeks of gestation of pregnancy not specified
CPT/HCPCS: 36415; 80053; 82570; 84156; 85025; 87077; 87081; 87186

== ENCOUNTER 2024-05-23 16:24 | Inpatient (IN) | payer MEDICAID, SELFPAY ==
[2024-05-23] VITALS (24 sets, daily range): BP systolic 128–204; BP diastolic 69–100; PULSE 72–97; RESP 16; TEMP 36.3–36.8; O2SAT 98–99; BMI 41.5
[2024-05-23 13:44] LABS: Hematocrit 33.9 % (37-47); Hemoglobin 10.4 g/dL (12.0-15.0); Mean Corp Hgb Conc 30.7 g/dL (32-36); Mean Corpuscular Hgb 23.9 pg (27.0-32.0); Mean Corpuscular Volume 77.8 fL (81-99); Mean Platelet Vol. 10.1 fl (6.2-12.0); Platelet Count 284 K/mm3 (150-450); RBC Distribution Width CV 19.8 % (11.6-14.6); RBC Distribution Width SD 48.1 fl (35.1-43.9); Red Blood Count 4.36 M/mm3 (4.2-5.4); White Blood Count 11.7 K/mm3 (4.4-11.0)
[2024-05-23 14:40] LABS: AST(SGOT) 20 U/L (15-37); Alanine Aminotransfer ALT/SGPT 24 U/L (13-56); Creatinine, Serum 0.69 mg/dL (0.55-1.02); EST Glomerular Filtration Rate 107 mL/min (>60); Est Glom Filt Rate - Afr Amer 130 mL/min (>60); Estimated Creatinine Clearance 147.03 ml/min; Uric Acid 4.2 mg/dL (2.6-6.0)
[2024-05-23 14:43] LABS: Protein, Urine (Random) 21.9 mg/dL (<11.9); Protein:Creat Ratio 260 mg/g CRE (0-200)
[2024-05-23] MEDS: Acetaminophen 500 MG Tablet 1000 MG PO (15:05)
[2024-05-23 17:13] LABS: Syphilis Antibodies Non-reactive
[2024-05-23] MEDS: miSOPROStol 25 MCG TABLET VAGINAL ×2 (17:39→21:40)
--- NOTE | 2024-05-23 17:56 | HP.PCM.OB_ITS ---
HPI - General General Date of Admission: 05/23/24 HPI Narrative MARIA ISABEL SOLITARIO, is a 28 F who presents at 38.2 with visual changes, headaches since yesterday. +FM Maternal Data Information LEN Calculator Estimated Delivery Date Method Current WG Current Estimate 06/04/24 LMP (Certain) 38w 2d [facility] Medical History (Updated 05/23/24 @ 18:03 by Belinda Marion CNM) Autoimmune disease Gestational HTN FH: spina bifida Seasonal allergies Rheumatoid arthritis Hypothyroid Home Medications ?Medication ?Instructions ?Recorded ?Last Taken ?Type aspirin 81 mg tablet,delayed 81 mg PO DAILY #60 tabs 10/30/23 05/22/24 Rx release (Adult Aspirin Regimen) levothyroxine 50 mcg tablet 50 mcg PO DAILY #30 tabs 01/11/24 05/22/24 Rx (Euthyrox) docusate sodium 50 mg capsule 50 mg PO BID constipation 04/14/24 05/23/24 History (Colace Clear) magnesium carb,citrate,oxide 500 mg PO DAILY constipation 04/22/24 05/22/24 History (Magnesium Complex) omeprazole magnesium 20 mg 20 mg PO DAILY PRN heartburn 05/06/24 05/23/24 History tablet,delayed release (Prilosec OTC) ferrous gluconate 324 mg (38 mg 324 mg PO BID #60 tabs 05/14/24 05/23/24 Rx iron) tablet Allergy/AdvReac Type Severity Reaction Status Date / Time hydroxychloroquine (From Allergy Hives Verified 05/23/24 12:41 Plaquenil) Family History Father Heart disease Mother Crohn's disease Surgical History H/O colonoscopy H/O dilation and curettage [place] teeth extracted Social History adopted: No household members: significant other current occupational status: unemployed pets and animals: Yes (Not managing litterbox) pets and animals: cat(s) history of recent travel: No sexually active: Yes Smoking Status: Never smoker alcohol intake: never substance use type: does not use well-balanced diet: daily or most days caffeine: No eating out: 1-3 times/week during the past year weight has: remained stable what type of physical activity do you participate in: none pierce/anabaptist: Pentecostalism seatbelt use: always do you feel safe at home: Yes additional social history: BF- [employer] History 2 Elective abortions 1 Hx Para 0 Spontaneous abortions Hx # Term Pregnancies Ectopic pregnancies Hx # Pregnancies Multiple births # of living children 0 Past Pregnancies Del. Date Name GA/Weeks Outcome Route Bth Weight Infant Gen Labor Lgth Anesthesia Del Locatn Provider FOB 04/12/23 9 spontaneous Delivery Date: 04/12/23 Last Updated by: Dania Eilse D&C x 2, retained products, [facility] Visit Details Expected Delivery Route/Plan Labor Preferences- CB/BF classes: declines labor support person: Prakash labor intervention preferences: [] pain management options preferred: undecided cut cord/dad catch: yes : yes PP control planned: discussed discussed possible routes of delivery and associated risks: [] special requests: [] Plans Covid status: [] Flu vaccine: declines Tdap vaccine:given Rhogam: na LARC form signed: yes movement and labor precautions reviewed. Problem list reviewed and updated with the most current plan of care details and appropriate orders placed. Relevant counseling for the gestational age provided. Continue routine care and follow up unless otherwise noted in visit notes/problem list details OB Flowsheet Initial Weight: Not Recorded Date -?-?-?-?-?-?-?-?-?-?-?-?- EGA Weight BP Urine Prot -?-?-?-?-?-?-?-?-?-?-?-?- Glucose FHR FuHt Pres Dilation -?-?-?-?-?-?-?-?-?-?-?-?- Effaced St Visit Note 10/19/23 -?-?-?-?-?-?-?-?-?-?-?-?- 7w 2d 178 lb 8 oz 128/83 -?-?-?-?-?-?-?-?-?-?-?-?- 168 -?-?-?-?-?-?-?-?-?-?-?-?- KW- CRL cons wit h dates. having increased N/V and may need additional IV fluids. Hx Hypothyroid- labs ordered. KW- CRL cons with dates. hav ing increased N/V and may need additional IV fluids. Hx Hypothyroid- labs ordered. NIPT and Carrier next visit. will RTO in 2 weeks for heartbeat check 10/30/23 -?-?-?-?-?-?-?-?-?-?-?-?- 8w 6d 178 lb 122/83 Negative -?-?-?-?-?-?-?-?-?-?-?-?- Negative 168 -?-?-?-?-?-?-?-?-?-?-?-?- No vb/cramping. refill on zofran today. Asa 81mg for covid during 1st trimester. NIPT box today 11/14/23 -?-?-?-?-?-?-?-?-?-?-?-?- 11w 0d 183 lb 120/78 Negative -?-?-?-?-?-?-?-?-?-?-?-?- Negative 160 -?-?-?-?-?-?-?-?-?-?-?-?- MH-No VB. Still w N&V. Enc to take zofran Q6 hr. Gaining weight, keeping food/fluid down. 12/12/23 -?-?-?-?-?-?-?-?-?-?-?-?- 15w 0d 187 lb 4 oz 133/82 Nega tive -?-?-?-?-?-?-?-?-?-?-?-?- Negative 158 -?-?-?-?-?-?-?-?-?-?-?-?- LC- no vb/crampi ng- scheduled today as cat jumped on abdomen and was having cramping following. +FM on handheld us. 01/11/24 -?-?-?-?-?-?-?-?-?-?-?-?- 19w 2d 194 lb 4 oz 108/68 Nega tive -?-?-?-?-?-?-?-?-?-?-?-?- Negative 148 -?-?-?-?-?-?-?-?-?-?-?-?- JV- no lof, vagi nal bleeding, or cramping. has a skin tag on her left breast/nipple. She wants this removed. rto in 1-2 weeks for skin tag removal. 01/21/24 -?-?-?-?-?-?-?-?-?-?-?-?- 20w 5d 201 lb 2 oz 109/73 -?-?-?-?-?-?-?-?-?-?-?-?- 150 -?-?-?-?-?-?-?-?-?-?-?-?- JV- skin tag on nipple removed today. see procedure note. 02/11/24 -?-?-?-?-?-?-?-?-?-?-?-?- 23w 5d 202 lb 8 oz 102/69 -?-?-?-?-?-?-?-?-?-?-?-?- 145 24 -?-?-?-?-?-?-?-?-?-?-?-?- KW- no vb/crampi ng. good fm. normal US. desires Fresh Test. many questions answered today. 02/13/24 -?-?-?-?-?-?-?-?--?-?-?-?- 24w 0d 206 lb 108/71 Negative -?-?-?-?-?-?-?-?-?-?-?-?- Negative 140 -?-?-?-?-?-?-?-?-?-?-?-?- KW- no vb/crampi ng. good fm. work in for external thrombosed hemorrhoid, had mentioned at last appt but declined exam because she thought it resolved. today it is about the size of a grape- approx 2 cm in size. very painful and was seen in ER yesterday. Consult for general surgery placed to possibly drain. 03/10/24 -?-?-?-?-?-?-?-?-?-?-?-?- 27w 5d 212 lb 2 oz 124/85 Nega tive -?-?-?-?-?-?-?-?-?--?-?-?- Negative 150 -?-?-?-?-?-?-?-?-?-?-?-?- MH-NO VB, LOF. G ood FM. 03/24/24 -?-?-?-?-?-?-?-?-?-?-?-?- 29w 5d 216 lb 133/81 Negative -?-?-?-?-?-?-?-?-?-?-?-?- Negative 146 30 -?-?-?-?-?-?-?-?-?-?-?-?- MH-No VB, AMISHA. Tarik ood FM. Some depression but no thoughts of self harm. Enc counseling. Declines meds. 04/08/24 -?-?-?-?-?-?-?-?-?-?-?-?- 31w 6d 220 lb 123/84 Negative -?-?-?-?-?-?-?-?-?-?-?-?- Negative 150 32 -?-?-?-?-?-?-?-?-?-?-?-?- MH-No Katheryn, AMISHA. Tarik mendozaod . Reactive NST. Bile acids pending. Ursodial helped with itching. 04/11/24 -?-?-?-?-?-?-?-?-?-?-?-?- 32w 2d 223 lb 118/82 Negative -?-?-?-?-?-?-?-?-?-?-?-?- Negative 145 -?-?-?-?-?-?-?-?-?-?-?-?- JV- reactive nst . tdap today. bile acids still pending. no longer has itching. continue actigall until results back. 04/14/24 -?-?-?-?-?-?-?-?-?-?-?-?- 32w 5d 220 lb 116/64 Trace -?-?-?-?-?-?-?-?-?-?-?-?- Negative 145 33 -?-?-?-?-?-?-?-?-?-?-?-?- KW- reactive NST . no vb/lof/ctx. good fm. itching continues to be improving and labs still pending 04/21/24 -?-?-?-?-?-?-?-?-?-?-?-?- 33w 5d 224 lb 117/84 Trace -?-?-?-?-?-?-?-?-?-?-?-?- Negative 140 34 -?-?-?-?-?-?-?-?-?-?-?-?- SM- gen surg con sult for hemorrhoids, no vb lof good fm nor egular ctx 05/06/24 -?-?-?-?-?-?-?-?-?-?-?-?- 35w 6d 231 lb 126/82 Trace -?-?-?-?-?-?-?-?-?-?-?-?- Negative 140 35 -?--?-?-?-?-?-?-?-?-?-?-?- SM- no vb lof go od fm n oregular ctx hemorrhoids better- having rheumatoid arthritis flare- ordered steroid pack dose to see if it will help. has NST over the weekend for itching, mainly at night and on her legs. ursodiol didn't help she stopped it. discusse dchiropractor referral for hip pain 05/13/24 -?-?-?-?-?-?-?-?-?-?-?-?- 36w 6d 236 lb 4 oz 133/89 Nega tive -?-?-?-?-?-?-?-?-?-?-?-?- Negative 145 36 Cephalic 0 -?-?-?-?-?-?-?-?-?-?-?-?- JV- pt has some headaches. rpt bp 132/84.sending for pih labs now. 05/19/24 -?-?-?-?-?-?-?-?-?-?-?-?- 37w 5d 238 lb 135/89 Negative -?-?-?-?-?-?-?-?-?-?-?-?- Negative 150 37 Cephalic 0 -?-?-?-?-?-?-?-?-?-?-?-?- SM- no vb lof go od fm no regular ctx NST FHR Rate Baby A Baseline: 140 Variability:: Moderate Accelerations:: 15 x 15 Decelerations:: None NST Reactive:: Yes FHR Category:: Category I ROS Cardiovascular Cardiovascular: Denies abdominal pain, chest pain, diaphoresis or dyspnea Respiratory/Chest Respiratory/Chest: Denies change in mental status, chest congestion, chest tightness, cough, shortness of breath at rest, shortness of breath with exertion, breast mass, breast pain, breast skin changes, breast swelling, change in breast shape or nipple discharge Genitourinary Genitourinary: Reports change in urinary stream Musculoskeletal Musculoskeletal: Reports none Integumentary Integumentary: Reports none Neurologic Neurologic: Reports none Psychiatric Psychiatric: Reports none Endocrine Endocrinology: Reports none Hematologic/Lymphatic Hematologic/Lymphatic: Reports none Allergic/Immunologic Allergic/Immunologic: Reports none Vital Signs Vital Signs Vital Signs: 05/23/24 12:56 05/23/24 12:56 05/23/24 13:11 Temperature Temperature Source Pulse Rate 97 Respiratory Rate Blood Pressure 141/92 H 148/95 H BP Systolic 141 148 BP Diastolic 92 95 Pulse Ox 05/23/24 13:11 05/23/24 13:26 05/23/24 13:26 Temperature Temperature Source Pulse Rate 96 86 Respiratory Rate Blood Pressure 145/88 H BP Systolic 145 BP Diastolic 88 Pulse Ox 05/23/24 13:41 05/23/24 13:41 05/23/24 13:56 Temperature Temperature Source Pulse Rate 93 Respiratory Rate Blood Pressure 156/100 H 149/89 H BP Systolic 156 149 BP Diastolic 100 89 Pulse Ox 05/23/24 13:56 05/23/24 14:09 05/23/24 14:09 Temperature Temperature Source Temporal Pulse Rate 81 Respiratory Rate 16 Blood Pressure BP Systolic BP Diastolic Pulse Ox 05/23/24 14:09 05/23/24 14:11 05/23/24 14:11 Temperature 97.9 F Temperature Source Pulse Rate 81 Respiratory Rate Blood Pressure 142/84 H BP Systolic 142 BP Diastolic 84 Pulse Ox 05/23/24 14:15 05/23/24 14:15 05/23/24 14:26 Temperature Temperature Source Pulse Rate 72 Respiratory Rate Blood Pressure 135/77 H BP Systolic 135 BP Diastolic 77 Pulse Ox 99 05/23/24 14:26 05/23/24 14:41 05/23/24 14:41 Temperature Temperature Source Pulse Rate 77 75 Respiratory Rate Blood Pressure 130/76 H BP Systolic 130 BP Diastolic 76 Pulse Ox 05/23/24 14:56 05/23/24 14:56 05/23/24 15:11 Temperature Temperature Source Pulse Rate 85 Respiratory Rate Blood Pressure 129/77 H 132/82 H BP Systolic 129 132 BP Diastolic 77 82 Pulse Ox 05/23/24 15:11 05/23/24 15:26 05/23/24 15:26 Temperature Temperature Source Pulse Rate 81 86 Respiratory Rate Blood Pressure 133/85 H BP Systolic 133 BP Diastolic 85 Pulse Ox 05/23/24 15:41 05/23/24 15:41 05/23/24 15:56 Temperature Temperature Source Pulse Rate 86 Respiratory Rate Blood Pressure 139/78 H 130/73 H BP Systolic 139 130 BP Diastolic 78 73 Pulse Ox 05/23/24 15:56 05/23/24 16:11 05/23/24 16:11 Temperature Temperature Source Pulse Rate 77 85 Respiratory Rate Blood Pressure 128/69 H BP Systolic 128 BP Diastolic 69 Pulse Ox 05/23/24 16:27 05/23/24 16:27 05/23/24 16:34 Temperature Temperature Source Pulse Rate 96 Respiratory Rate Blood Pressure 204/91 H 172/83 H BP Systolic 204 172 BP Diastolic 91 83 Pulse Ox 05/23/24 16:34 05/23/24 16:50 05/23/24 16:50 Temperature Temperature Source Pulse Rate 88 82 Respiratory Rate Blood Pressure 160/89 H BP Systolic 160 BP Diastolic 89 Pulse Ox 05/23/24 17:05 05/23/24 17:05 Temperature Temperature Source Pulse Rate 85 Respiratory Rate Blood Pressure 156/79 H BP Systolic 156 BP Diastolic 79 Pulse Ox Weight Weight: 242 lb Body Mass Index (BMI) 41.5 Physical Exam Const alert, oriented x3 and no apparent distress General Appearance: cooperative, comfortable and well kempt Orientation / Consciousness: awake and oriented to person Exam Limitations: no limitations HEENT normocephalic Neck full ROM Chest inspection of chest normal Resp normal respiratory effort, normal air movement and no retractions Effort and Inspection: able to speak in complete sentences and symmetric chest movement Cardio regular rate Peripheral Pulses: pulses 2+ throughout GI normal to inspection, nondistended, normoactive bowel sounds Inspection: gravid no CVA tenderness and appearance of the vagina normal External Female Exam: normal appearance of the urethra; Negative for external lesion OB / External & Speculum: external exam normal Manual OB Exam: estimated gestational size appropriate and presentation cephalic Uterus Palpation: Negative for uterus tender Extremity normal to inspection Skin no rashes or lesions noted Neuro deep tendon reflexes 2+ bilaterally and gait normal Motor Exam: strength 5/5 throughout and clonus absent Psych Activity / Motor Behavior: appropriate eye contact Speech: normal speech Labs Labs Labs: Blood Type O POSITIVE Antibody Screen NEGATIVE Hct 33.9 % (37-47) L Hgb 10.4 g/dL (12.0-15.0) L Obstetrics Ultrasound Syphilis Total Ab Non-reactive Rubella IgG Antibody Reactive (Nonreactive) Hep Bs Antigen Non-Reactive (Nonreactive) Hepatitis C Antibody Non-Reactive (Nonreactive) Hepatitis C Ab (EIA) <0.1 s/co ratio (0.0-0.9) Chlamydia DNA (ESTEFANY) Negative (Negative) N.gonorrhoeae DNA (ESTEFANY) Negative (Negative) HIV 1&2 Antibody Non-Reactive (Nonreactive) Glucose 1 Hr 50 gm 126 mg/dL (70-140) Miscellaneous Test Assessment & Plan (1) Positive GBS test: COMMENT: PCN in labor. (2) Thrombosed external hemorrhoid: (3) : QUALIFIERS: Weeks of gestation: 37 weeks Qualified Code(s): Z3A.37 - 37 weeks gestation of COMMENT: Wants genetic & carrier testing, NIPT low risk, carrier neg. . normal anatomy, CL 4cm and adequate, consistent LEN, nl GCT (4) Supervision of high risk in first trimester: COMMENT: PRR, , LEN 06/04/24 girl: Leticia Barrientos. Cary Bruce (5) Depression: QUALIFIERS: Depression Type: unspecified Qualified Code(s): F32.A - Depression, unspecified COMMENT: Declines meds. Counseling enc and handout given. (6) Mild pre-eclampsia: COMMENT: normal labs, occ visual changes, headaches. PLAN: Plan Patient presents IOL, plan management for with cytotec, pitocin/AROM. Pain management: plans epidural. GBS positive. Management of any complications: none I have reviewed the [facility] and made any clinically relevant updates. reviewed with dr. gutierrez for mild pre-eclampsia who agrees with iol and plan of care. co-management
[2024-05-23] MEDS: 0.9% Saline Lock 10 ML Syringe IV (18:17)
[2024-05-23] MEDS: Levothyroxine 50 MCG Tablet PO (23:01)
[2024-05-23] MEDS: Docusate Sodium 100 MG/10 ML UDC 50 MG PO (23:03)
[2024-05-24] VITALS (40 sets, daily range): BP systolic 108–158; BP diastolic 58–96; PULSE 63–107; RESP 16; TEMP 36.5–37.5; O2SAT 97–100
[2024-05-24] MEDS: miSOPROStol 25 MCG TABLET VAGINAL (01:49)
[2024-05-24] MEDS: Acetaminophen 500 MG Tablet PO (01:59)
[2024-05-24] MEDS: LACTATED RINGERS 500 ML 999 ML IV ×2 (02:56→04:56)
[2024-05-24] MEDS: Lactated Ringers 1,000 ML 50 ML IV (03:46)
[2024-05-24] MEDS: Penicillin G Pot 5,000,000 UNITS in 0.9% Normal Saline (100mL MB+) 100 ML 150 UNITS IV (06:54)
--- NOTE | 2024-05-24 08:45 | PCM.PN.CNM ---
Subjective Subjective having mild cramping overnight, but comfortable. Objective Data Objective Data Vital Signs: Vital Signs Temp Pulse Resp BP Pulse Ox 99.3 F H 86 16 125/82 H 97 05/24/24 07:36 05/24/24 07:36 05/24/24 07:36 05/24/24 07:36 05/24/24 07:36 Weight: 242 lb Body Mass Index (BMI) 41.5 Intake & Output: Intake and Output for Last 24 Hours 05/22/24 05/23/24 05/24/24 23:59 23:59 23:59 Intake Total 1105 / 1105 Balance 1105 / 1105 Lab / Micro Data 05/23/24 13:20 05/23/24 13:20 Labs: Laboratory Results - last 24 hr 05/23/24 13:20: WBC 11.7 H, RBC 4.36, Hgb 10.4 L, Hct 33.9 L, MCV 77.8 L, MCH 23.9 L, MCHC 30.7 L, RDW Std Deviation 48.1 H, RDW Coeff of Alexis 19.8 H, Plt Count 284, MPV 10.1, Creatinine 0.69, Estim Creat Clear Calc 147.03, Est GFR (MDRD) Af Amer 130, Est GFR (MDRD) Non-Af 107, Uric Acid 4.2, AST 20, ALT 24, U Random Total Protein 21.9 H, Urine Creatinine 84.10, Protein/Creatinin Ratio 260 H, Syphilis Total Ab Non-reactive, Blood Type O POSITIVE, Antibody Screen NEGATIVE NST FHR Rate Baby A Baseline: 145 Variability:: Moderate Accelerations:: 15 x 15 Decelerations:: None NST Reactive:: Yes FHR Category:: Category I Assessment & Plan (1) Mild pre-eclampsia: COMMENT: normal labs, occ visual changes, headaches. IOL at 38.2 BP stable overnight, no htn medications required. (2) Positive GBS test: COMMENT: PCN in labor. (3) Thrombosed external hemorrhoid: (4) : QUALIFIERS: Weeks of gestation: 37 weeks Qualified Code(s): Z3A.37 - 37 weeks gestation of COMMENT: Wants genetic & carrier testing, NIPT low risk, carrier neg. . normal anatomy, CL 4cm and adequate, consistent LEN, nl GCT (5) Supervision of high risk in first trimester: COMMENT: PRR, , LEN 06/04/24 girl: Leticia Barrientos. Cary Bruce (6) Encounter for induction of labor: COMMENT: cytotec. bowden bulb. PLAN: transition to foly/pitocin per protocol. epidural as needed PLAN: Plan current tracing:cat 1 FHT: Moderate variability reactive no decelerations category I tracing [place]: q2 Contractions reviewed tracing abnormalities since last note: periods of minimal variability with variables overnight, responded to position changes/ IVF bolus. cytotec dose held at 5am. A/P: bowden bulb, add pitocin per protocol. may desire nitrous oxide prior to epidural bp stable. reviewed risk/benefit of bowden, pitocin, , cs. aware of Dr. Archer as backup for surgical interventions.
[2024-05-24] MEDS: 0.9% Normal Saline Single 100 ML IV.SOLN. INTRA-UTER (08:53)
[2024-05-24] MEDS: Lactated Ringers 1,000 ML 999 ML IV (12:00)
[2024-05-24] MEDS: Penicillin G 3,000,000 Units 50 ML 100 UNITS IV ×2 (12:05→15:10)
[2024-05-24] MEDS: fentaNYL-bupivacaine (epidural) 100 ML BAG EPIDURAL (13:00)
[2024-05-24] MEDS: Lactated Ringers 1,000 ML 200 ML IV (15:10)
[2024-05-24] MEDS: Oxytocin 15 Units/NS 250ml 15 UNITS/250 ML IV.SOLN 2 UNITS IV (15:13)
--- NOTE | 2024-05-24 18:43 | OP.PCM_ITS ---
Assessment & Plan (1) (spontaneous vaginal delivery): COMMENT: LC IOL-mild PEC. girl Winnie Maternal Data Information LEN Calculator Estimated Delivery Date Method Current WG Current Estimate 06/04/24 LMP (Certain) 38w 3d Final LEN: 06/04/24 Gestational age: 38.3 Vaginal Delivery Maternal Presentation Maternal Presentation: Medically Indicated Induction Maternal Presentation: with mild pre-eclampsia with consistent headache and visual change, elevated BP. stable labs. Type of Induction: Pitocin, Fisher Bulb and Cytotec Medical Reason for Induction: Preeclampsia, eclampsia Operative Information Date of Procedure: 05/24/24 Pre-Operative Diagnosis: see problem list Surgery / Procedure Performed: Spontaneous Vaginal Delivery Type of Anesthesia: Epidural Drain: Fisher to straight drain Estimated Blood Loss: 100 Time of Delivery: 18:15 Findings Description of Procedure: Patient began pushing and delivered the head in the SHELLEY presentation. The head was delivered atraumatically and a loose nuchal cord ?1 was identified and easily reduced over the 's head. The anterior and posterior shoulders delivered without complication followed by the rest of the and the was placed on the maternal abdomen. Delayed cord clamping was employed for approximately 60 seconds. Cord was clamped and cut and gentle traction was applied to the cord and the placenta delivered spontaneously immediately following it was noted to be intact with three-vessel cord. The perineum and vagina were inspected and noted to have no laceration. EBL was 100 cc. Patient and infant tolerated delivery well. Dr. Archer updated on delivery without complications, agrees with standard pp orders. Presentation: Vertex Amniotic Membrane Rupture Type: Spontaneous Amniotic Fluid Description: Moderate meconium Placental Delivery Description: Spontaneous Placenta Disposition: [facility] Cord Vessel Description: 3 Vessels Cord Entanglement: Around neck x 1, loose Nuchal Cord Compression: Without compression Infant A Gender: Female (1 minute): 8 (5 minute): 9 Delayed Cord Clamping: Yes Post Vaginal Delivery Medications Given After Delivery: IV Pitocin Episiotomy Description: None Laceration: None Procedures Urinary/Genital [id number]: [id number] Vaginal Delivery [facility]
[2024-05-24] MEDS: Oxytocin 15 Units/NS 250ml 15 UNITS/250 ML IV.SOLN 83 UNITS IV (19:10)
[2024-05-24] MEDS: Naproxen 500 MG Tablet PO (19:51)
[2024-05-25 03:05] VITALS: BP 116/65; PULSE 82; RESP 16; TEMP 36.3; O2SAT 98
[2024-05-25] MEDS: Naproxen 500 MG Tablet PO (06:05)
[2024-05-25 08:03] VITALS: BP 130/90; PULSE 79; RESP 16; TEMP 36.3; O2SAT 98
[2024-05-25] MEDS: Senna/Docusate Sodium 1 Tablet PO ×2 (08:11→22:01)
[2024-05-25] MEDS: Dibucaine 30 GM Tube 1 APPLIC TOPICAL (08:11)
--- NOTE | 2024-05-25 09:06 | PCM.PN.CNM ---
Subjective Subjective Patient doing well without complaints. Tolerating PO. Ambulating and voiding without difficulty. Feeding well. Denies chest pain, shortness of breath, calf pain/swelling, fevers, chills, lightheadedness. Objective Data Objective Data BP stable overnight. Vital Signs: Vital Signs Temp Pulse Resp BP Pulse Ox O2 Del Method 97.4 F L 79 16 130/90 H 98 Room Air 05/25/24 08:03 05/25/24 08:03 05/25/24 08:03 05/25/24 08:03 05/25/24 08:03 05/25/24 08:03 Oxygen Delivery Method Room Air Weight: 242 lb Body Mass Index (BMI) 41.5 Intake & Output: Intake and Output for Last 24 Hours 05/23/24 05/24/24 05/25/24 23:59 23:59 23:59 Intake Total 4142.68 / 4142.68 Output Total 1100 / 1100 Balance 3042.68 / 3042.68 Lab / Micro Data 05/23/24 13:20 05/23/24 13:20 Physical Exam Const alert and oriented x3 Neck full ROM Lymph Lymphatic: no lymphadenopathy noted Chest inspection of chest normal and inspection of breasts normal Resp normal respiratory effort, no retractions and no use of accessory muscles Cardio regular rate and regular rhythm GI normal to inspection, nondistended, normoactive bowel sounds no CVA tenderness Extremity normal to inspection, normal capillary refill, no calf tenderness and no pedal edema Skin no rashes or lesions noted Neuro oriented x3 Psych mental status grossly normal Assessment & Plan (1) (spontaneous vaginal delivery): COMMENT: LC IOL-mild PEC. girl Winnie (2) Mild pre-eclampsia: COMMENT: normal labs, occ visual changes, headaches. IOL at 38.2 BP stable overnight, no htn medications required. (3) Depression: QUALIFIERS: Depression Type: unspecified Qualified Code(s): F32.A - Depression, unspecified COMMENT: Declines meds. Counseling enc and handout given. PLAN: Plan s/p PPD # 1 1. routine post delivery care 2. breast feeding- support given 3. rh positive 4. rubella immune 5. plan d/c home tomorrow.
[2024-05-25 12:44] VITALS: BP 131/90; PULSE 85; RESP 16; TEMP 36.4; O2SAT 99
--- NOTE | 2024-05-25 14:44 | CON.PCM.LA_ITS ---
HPI Consult Data Date of Consult: 05/25/24 HPI Narrative HPI Narrative: MARIA ISABEL SOLITARIO, is a 28 F who presents assessment, latching concerns. History provided by the patient. [facility] Medical History (Updated 05/24/24 @ 18:44 by Belinda Marion CNM) Autoimmune disease Gestational HTN FH: spina bifida Seasonal allergies Rheumatoid arthritis Hypothyroid Home Medications ?Medication ?Instructions ?Recorded ?Last Taken ?Type aspirin 81 mg tablet,delayed 81 mg PO DAILY #60 tabs 10/30/23 05/22/24 Rx release (Adult Aspirin Regimen) levothyroxine 50 mcg tablet 50 mcg PO DAILY #30 tabs 01/11/24 05/22/24 Rx (Euthyrox) docusate sodium 50 mg capsule 50 mg PO BID constipation 04/14/24 05/23/24 History (Colace Clear) magnesium carb,citrate,oxide 500 mg PO DAILY constipation 04/22/24 05/22/24 History (Magnesium Complex) omeprazole magnesium 20 mg 20 mg PO DAILY PRN heartburn 05/06/24 05/23/24 History tablet,delayed release (Prilosec OTC) ferrous gluconate 324 mg (38 mg 324 mg PO BID #60 tabs 05/14/24 05/23/24 Rx iron) tablet Allergy/AdvReac Type Severity Reaction Status Date / Time hydroxychloroquine (From Allergy Hives Verified 05/23/24 12:41 Plaquenil) Family History Father Heart disease Mother Crohn's disease Surgical History H/O colonoscopy H/O dilation and curettage [place] teeth extracted Social History adopted: No household members: significant other current occupational status: unemployed pets and animals: Yes (Not managing litterbox) pets and animals: cat(s) history of recent travel: No sexually active: Yes Smoking Status: Never smoker alcohol intake: never substance use type: does not use well-balanced diet: daily or most days caffeine: No eating out: 1-3 times/week during the past year weight has: remained stable what type of physical activity do you participate in: none pierce/presybeterian: Anabaptist seatbelt use: always do you feel safe at home: Yes additional social history: BF- Teo [employer] Exam General Weight: 242 lb
[2024-05-25 16:42] VITALS: BP 130/74; PULSE 88; RESP 16; TEMP 36.6; O2SAT 98
[2024-05-25 19:52] VITALS: BP 126/85; PULSE 75; RESP 16; TEMP 36.2; O2SAT 99
[2024-05-25] MEDS: Levothyroxine 50 MCG Tablet PO (22:02)
[2024-05-26 02:54] VITALS: BP 101/62; PULSE 60; RESP 16; TEMP 36.1
--- NOTE | 2024-05-26 08:14 | PN.OBGYN_ITS ---
Subjective Subjective Patient doing well without complaints. Tolerating PO. Ambulating and voiding without difficulty. Feeding well. Denies chest pain, shortness of breath, calf pain/swelling, fevers, chills, lightheadedness. Objective Data Objective Data Vital Signs: Vital Signs Temp Pulse Resp BP Pulse Ox O2 Del Method 97.0 F L 60 16 101/62 99 Room Air 05/26/24 02:54 05/26/24 02:54 05/26/24 02:54 05/26/24 02:54 05/25/24 19:52 05/26/24 02:54 Oxygen Delivery Method Room Air Weight: 242 lb Body Mass Index (BMI) 41.5 Intake & Output: Intake and Output for Last 24 Hours 05/24/24 05/25/24 05/26/24 23:59 23:59 23:59 Intake Total 4142.68 / 4142.68 Output Total 1100 / 1100 Balance 3042.68 / 3042.68 Lab / Micro Data Attestation: I reviewed the patient's lab results. 05/23/24 13:20 05/23/24 13:20 ROS Constitutional Constitutional: Reports systems reviewed and no addt'l complaints, except as documented; Denies anorexia or headache(s) Cardiovascular Cardiovascular: Reports systems reviewed and no addt'l complaints, except as documented; Denies dizziness, dyspnea, nausea or tachypnea Respiratory/Chest Respiratory/Chest: Reports systems reviewed and no addt'l complaints, except as documented; Denies cough, dyspnea, shortness of breath at rest or tachypnea Gastrointestinal Gastrointestinal: Reports systems reviewed and no addt'l complaints, except as documented; Denies abdominal pain, constipation or nausea Genitourinary Genitourinary: Reports systems reviewed and no addt'l complaints, except as documented; Denies burning urination, difficulty urinating, dysuria, urinary frequency or urinary incontinence Musculoskeletal Musculoskeletal: Reports systems reviewed and no addt'l complaints, except as documented Integumentary Integumentary: Reports systems reviewed and no addt'l complaints, except as documented Neurologic Neurologic: Reports systems reviewed and no addt'l complaints, except as documented; Denies abnormal speech, dizziness or headache(s) Psychiatric Psychiatric: Reports systems reviewed and no addt'l complaints, except as documented Endocrine Endocrinology: Reports systems reviewed and no addt'l complaints, except as documented Hematologic/Lymphatic Hematologic/Lymphatic: Reports systems reviewed and no addt'l complaints, except as documented Physical Exam Const alert, oriented x3 and no apparent distress Neck full ROM Resp normal respiratory effort, normal air movement and no retractions Effort and Inspection: able to speak in complete sentences and symmetric chest movement GI soft to palpation Bladder / Kidney Exam: bladder normal to palpation Uterus Palpation: uterus fundus firm Extremity normal to inspection and full ROM Psych mental status grossly normal, thought process normal and cooperative Assessment & Plan (1) (spontaneous vaginal delivery): COMMENT: LC IOL-mild PEC. girl Winnie PLAN: s/p PPD # 2 1. routine post delivery care 2. breast feeding- support given 3. rh positive 4. rubella immune 5. discharge home (2) Encounter for induction of labor: COMMENT: cytotec. bowden bulb. (3) Mild pre-eclampsia: COMMENT: normal labs, occ visual changes, headaches. IOL at 38.2 BP stable overnight, no htn medications required. (4) Positive GBS test: COMMENT: PCN in labor. (5) Anemia affecting : COMMENT: ferrous gluconate 350 bid (6) Headache in : COMMENT: likely related to anemia (7) Thrombosed external hemorrhoid: (8) History of miscarriage: COMMENT: 04/2023:Genetic marker FOB/microdeletion, fetus probable turners (9) COVID-19 affecting , antepartum: COMMENT: ASA 81mg (10) Hypothyroid in , antepartum: COMMENT: labs q trimester. Nl 1st T. (11) IBS (irritable bowel syndrome): (12) : QUALIFIERS: Weeks of gestation: 37 weeks Qualified Code(s): Z 3A.37 - 37 weeks gestation of COMMENT: Wants genetic & carrier testing, NIPT low risk, carrier neg. . normal anatomy, CL 4cm and adequate, consistent LEN, nl GCT (13) Depression: QUALIFIERS: Depression Type: unspecified Qualified Code(s): F32.A - Depression, unspecified COMMENT: Declines meds. Counseling enc and handout given. (14) Threatened : (15) Supervision of high risk in first trimester: COMMENT: PRR, , LEN 06/04/24 girl: Leticia Barrientos. Cary Bruce (16) Hidradenitis suppurativa: (17) Raynauds disease: (18) Anxiety: Charges/Coding Multi Select Codes Urinary/Genital Urinary/Genital CPT Codes: No Charge
--- NOTE | 2024-05-26 08:17 | DCINST_ITS ---
Discharge Instructions Diet Discharge Diet: No restrictions Activity Discharge Activity: Return to Normal Activity May resume sexual activity in: 6-8 weeks Dressing / Incision Call your doctor if you observe: Fever of 101 or Higher, Coldness, Increased Pain, Numbness or Tingling, Change in Color, Inability to urinate, Inability to have a bowel movement, Using more than 1 pad per hour, Shortness of breath, Dizziness, Fainting spells, Swelling in the ankles, Chest pain, Increased palpitations (irregular heartbeat), Calf discomfort and Uncontrolled pain Follow Up Care Please Follow Up With: Estefania Marroquin CNM When: Please call the office to schedule your follow up appointment in 6 weeks. If you had high blood pressure please call to schedule an appointment in 1 weeks. Test Results: Test results from this visit will be discussed in further detail at your follow- up appointment, if applicable. Discharge Plan Admission Admit Date/Time: 05/23/24 16:24 Attending Provider: Belinda Marion Primary Care Provider: Care Physician,No Primary Consulting Providers: Milagros Davis NP Discharge Orders/Prescriptions Prescriptions: No Action aspirin [Adult Aspirin Regimen] 81 mg tablet,delayed release (DR/EC) 81 mg PO DAILY Qty: 60 4RF levothyroxine [Euthyrox] 50 mcg tablet 50 mcg PO DAILY Qty: 30 3RF omeprazole magnesium [Prilosec OTC] 20 mg tablet,delayed release (DR/EC) 20 mg PO DAILY PRN (Reason: heartburn) Colace Clear 50 mg capsule 50 mg PO BID Magnesium Complex 300 mg magnesium tablet 500 mg PO DAILY ferrous gluconate 324 mg (38 mg iron) tablet 324 mg PO BID Qty: 60 6RF Referrals / Follow Up: Care Physician,No Primary [Primary Care Provider] - Disposition Disposition (needs filled in before D/C Order can be placed): Home, Self Care
[2024-05-26 08:29] VITALS: BP 128/89; PULSE 81; RESP 16; TEMP 36.3; O2SAT 98
[2024-05-26] MEDS: Naproxen 500 MG Tablet PO (08:46)
--- NOTE | 2024-05-26 13:31 | CASEMGMT ---
Social Work Assessment Labor and Delivery Unit Patient Address: [address] [place] [address] [address] [place] [address] Phone number: [phone] Date of Referral: 05/24/24 Time of Referral:? 2207 Referred By: Belinda Marion Date of Intervention: ??05/26/24 Time of Intervention:? 944 Reason for Referral: mental health Sw completed chart review and acknowledges social work consult due to maternal mental health history. Sw presented to bedside and introduced self to mother of baby (MOB- Shawna) and father of baby (FOB- Teo). Sw explained reason for sw involvement and completed sw assessment. ? History obtained from: medical records, MOB and FOB Household composition: Currently residing in the home is MOB, FOB and now baby when ready for discharge. Parents deny any issues or concerns with their housing- stating that it is safe and secure. Patient's parent/guardian status:? Parents report that they have been together for 1.5 years after meeting in a bar. No concerns reported regarding domestic violence or intimate partner violence. ? Medical History: ?MYKE is 28 year old female who is 2, para 0- now 1 following labor and delivery of . MYKE received routine care during with [place]. MYKE presented to hospital and delivered baby via vaginal delivery at 38 weeks gestation. Baby girl, Ivy, was born on 05/24/24 weighing 7lb 7oz with apgars of 8 and 9 at one and five minutes of life, respectfully. MYKE states that she is breast feeding and baby will be seen by Dr. House for pediatrics. Educational Status:? Both parents graduated from high school and MYKE has an associates degree. No issues with reading, learning or comprehension. Financial Status: KE is gainfully employed outside working for his family's [employer]. MYKE is unemployed and will stay home with the baby. Supplies:??Parents have obtained all necessary baby supplies, including: car seat, safe sleep space, clothes, diapers and wipes. MYKE states that she has a breast pump for home. Childcare/Caregiver(s):? MYKE states that she will be the primary caregiver to baby, but also has family that can help when necessary. Transportation:?Both parents have their drivers license and reliable means of transportation. No barriers at this time. Programs/Agencies Involved: ?MYKE is connected to medicaid insurance through [employer] [facility]. MYKE reports to also having WIC and was encouraged to call them to ensure they are aware that baby was born. Children Services/Legal Issues:??No history of children services involvement, no issues or concerns warranting referral to be made at this time. ? Behavioral Health Issues: ??Mental Health History: KE denies mental health history. MYKE reports to have history of anxiety and depression. MOB previously prescribed cymbalta, but reports that it made her to drowsy. MOB states that her depression is more troublesome than her anxiety. MOB states that at baseline she will seclude herself and retreat. MOB reports that she is verbal about what she is feeling/ experiencing and knows that she has supportive people she can talk to. MOB states that she does not believe that her depression is debilitating in any way. ? Substance Use History:??Parents deny substance use prior to and during . Family History: Parents deny family history of addiction/ substance use and significant mental health diagnoses. Drug Screens: No drug screens observed in chart review. ?? Family/Social Stressors:? Parents deny issues, concerns or stressors at this time. Support Systems: MYKE states that KE and her parents are her biggest supports. Depression/Shaken Baby/Safe Sleeping:? Tonia educated parents on signs and symptoms of baby blues and mood and anxiety disorders to be on the lookout for. Tonia educated MOB that due to her mental health diagnoses she is more at risk for experiencing one or both of these issues. MOB expressed understanding. KE states that if MOB were to struggle he would be able to recognize that and would know how to help and encourage her. Parents were encouraged to have a conversation about what KE can do to help MOB if she would struggle. Tonia educated parents on shaken baby prevention and ABCs of safe sleep. Parents express understanding. ASSESSMENT:? MOB and baby admitted following labor and delivery. MOB with mental health history positive for anxiety and depression, not on any medications at this time to help manage her symptoms. Parents have obtained all necessary baby supplies and have natural supports in place. Parents were engaged throughout conversation and completion of psychosocial assessment, although not forthcoming with additional information other than answers to questions asked. MOB was observed holding baby and providing loving and appropriate hands on care. PLAN:? MOB and baby to be discharged when medically ready. MOB/ parents were provided with literature regarding: Help Me Grow, safe sleep, shaken baby prevention, [facility] resource list and education regarding mood and anxiety disorders to be aware of. ?No other services requested or indicated. Shiva Mcmahan, AUDITOR TAX, BABY FORMULA MIXER
--- NOTE | 2024-06-02 14:49 | NURSING ---
Follow up phone call made. Patient states she is doing well. Denies any issues with pain, bleeding, headaches, or visual disturbances. States she has spoken with her EXPORT SALES MANAGER about baby blues. States the infant is nursing well every 2-3 hours and is gaining weight well. Patient denies any questions or concerns at this time
== END 2024-05-26 12:05 | disposition home or self-care (01) | DRG 566 ==
LOC: WPOUT 16:30 → WP 16:30
PROVIDERS: Admitting Provider Registered Nurse; Referring Provider Registered Nurse; Visit Provider Registered Nurse
DX: O14.03 Mild to moderate pre-eclampsia, third trimester (principal); O22.43 Hemorrhoids in pregnancy, third trimester; F32.A Depression, unspecified; E03.9 Hypothyroidism, unspecified; K58.9 Irritable bowel syndrome, unspecified; L73.2 Hidradenitis suppurativa; I73.00 Raynaud's syndrome without gangrene; O99.413 Diseases of the circulatory system complicating pregnancy, third trimester; O99.820 Streptococcus B carrier state complicating pregnancy; O99.283 Endocrine, nutritional and metabolic diseases complicating pregnancy, third trimester; O99.343 Other mental disorders complicating pregnancy, third trimester; O99.613 Diseases of the digestive system complicating pregnancy, third trimester; O99.713 Diseases of the skin and subcutaneous tissue complicating pregnancy, third trimester; Z86.16 Personal history of COVID-19; B95.1 Streptococcus, group B, as the cause of diseases classified elsewhere; O99.02 Anemia complicating childbirth; Z79.82 Long term (current) use of aspirin; Z3A.38 38 weeks gestation of pregnancy
CPT/HCPCS: 59025; 59050; 82565; 82570; 84156; 84450; 84460; 84550; 85027; 86780; 86850; 86900; 86901; 99221; J7120; A4216; G0378

== ENCOUNTER → 2024-10-20 | Outpatient (CLI) | payer MEDICAID, SELFPAY | END | disposition home or self-care (01) | PROVIDERS: Referring Provider Nurse Practitioner Women's Health; Visit Provider Nurse Practitioner Women's Health | DX: N89.8 Other specified noninflammatory disorders of vagina (principal) | CPT/HCPCS: 87070; 87205 ==

== ENCOUNTER → 2024-11-21 | Outpatient (CLI) | payer MEDICAID, SELFPAY ==
[2024-11-28 13:28] LABS: HPV Reflexed? NOT INDICATED
== END | disposition home or self-care (01) ==
PROVIDERS: Referring Provider Registered Nurse; Visit Provider Registered Nurse
DX: Z12.4 Encounter for screening for malignant neoplasm of cervix (principal)
CPT/HCPCS: 88175; G0145

== ENCOUNTER → 2025-05-15 | Outpatient (CLI) | payer MEDICAID, SELFPAY ==
--- NOTE | 2025-05-15 13:00 | RAD_ITS ---
PROCEDURE: ABD INC DECUB AND/OR ERECT 05/15/2025 REASON FOR EXAM: IBS W/ CONSTIPATION TECHNIQUE: Procedure Code: RADABDMV Modality: DX Procedure: ABD INC DECUB AND/OR ERECT COMPARISON: None. FINDINGS: There is a nonobstructive bowel gas pattern. There are no abnormal soft tissue calcifications or radiopaque foreign bodies. There are no bony abnormalities. RAD/Abd Inc Decub and/or Erect IMPRESSION: No evidence of abdominal pathology. Reading Location: [id number]
--- NOTE | 2025-05-15 13:00 | RAD_ITS ---
PROCEDURE: TEMPORO-MANDIBULAR JT DAVI 05/15/2025 REASON FOR EXAM: UNSPECIFIED TEMPOROMANDIBULAR JOINT DISORDER, UNSPECIFIED SIDE TECHNIQUE: Procedure Code: RADTMJ Modality: DX Procedure: TEMPORO-MANDIBULAR JT DAVI COMPARISON: None FINDINGS: Bones: Bilateral open and closed use of the temporomandibular joints were performed. AP imaging was not provided. No fracture is seen. Joints: Normal alignment in the open and closed position. Normal translation of the mandibular condyle across the eminence. Soft tissues: Grossly normal RAD/Temporo-Mandibular Jt Davi IMPRESSION: Unremarkable appearance of the temporomandibular joints. Reading Location: [id number]
== END | disposition home or self-care (01) ==
LOC: RAD 12:57
PROVIDERS: PCP Nurse Practitioner Family; Referring Provider Nurse Practitioner Family; Visit Provider Nurse Practitioner Family
DX: K58.1 Irritable bowel syndrome with constipation (principal); M26.609 Unspecified temporomandibular joint disorder, unspecified side
CPT/HCPCS: 70330; 74019

== ENCOUNTER 2025-06-02 16:35 | Emergency (ER) | payer MEDICAID, SELFPAY ==
[2025-06-02 16:36] VITALS: BP 135/96; PULSE 69; RESP 18; TEMP 36.1; O2SAT 100; BMI 29.3
--- NOTE | 2025-06-02 18:06 | CT_ITS ---
PROCEDURE: CT BRAIN/HEAD WITHOUT CONTRAST 06/02/2025 REASON FOR EXAM: VERTIGO, HEADACHE X 3 WEEKS INITIALLY INTERMITTENT TECHNIQUE: Procedure Code: CTBR Modality: CT Procedure: BRAIN/HEAD WITHOUT CONTRAST Coronal and Sagittal reconstruction series were provided. One or more dose reduction techniques were used (e.g., Automated exposure control, adjustment of the mA and/or kV according to patient size, use of iterative reconstruction technique. RADIATION DOSE SUMMARY: CTDlvol: 47.06 mGy DLP: 890.33 mGycm COMPARISON: None. FINDINGS: No acute intracranial hemorrhage, extra-axial collection, mass effect or evidence of acute infarct. Ventricles and subarachnoid spaces are normal in size. Orbital contents are unremarkable. Intact skull base and calvarium. Clear paranasal sinuses and mastoid air cells. CT/Brain/Head without Contrast IMPRESSION: Unremarkable head CT. Reading Location: [id number]
[2025-06-02 18:11] LABS: Hematocrit 41.5 % (37-47); Hemoglobin 14.1 g/dL (12.0-15.0); Immature Granulocytes Count 0.040 X10^3/uL (0.0-0.0); Mean Corp Hgb Conc 34.0 g/dL (32-36); Mean Corpuscular Volume 83.5 fL (81-99); Mean Platelet Vol. 10.0 fl (6.2-12.0); NRBC Flagged by Analyzer 0 % (0-5); Platelet Count 261 K/mm3 (150-450); RBC Distribution Width CV 12.4 % (11.6-14.6); RBC Distribution Width SD 37.3 fl (35.1-43.9); Red Blood Count 4.97 M/mm3 (4.2-5.4); White Blood Count 11.6 K/mm3 (4.4-11.0)
[2025-06-02 18:33] LABS: AST(SGOT) 21 U/L (<=31); Alanine Aminotransfer ALT/SGPT 12 U/L (<=34); Albumin, Serum 4.5 g/dL (3.5-5.0); Alkaline Phosphatase 80 U/L (35-104); Anion Gap 13 (5-15); BUN 14 mg/dL (4-19); BUN/Creat Ratio 18.0 RATIO (10-20); Calcium,Total 9.4 mg/dL (7.6-11.0); Carbon Dioxide 21.8 mmol/L (21.0-32.0); Chloride 104 mmol/L (98-108); Estimated Creatinine Clearance 104.58 ml/min (50-250); Globulin 3.1 g/dL (2.2-4.2); Glucose 83 mg/dL (70-99); Potassium 3.6 mmol/L (3.3-5.1); Procalcitonin 0.03 ng/mL (<=0.10)
[2025-06-02 18:51] VITALS: BP 118/71; BP 125/97; BP 135/92; PULSE 62; PULSE 86; PULSE 87
[2025-06-02 20:26] VITALS: BP 124/89; PULSE 76; RESP 15; O2SAT 97
--- NOTE | 2025-06-02 21:41 | EX.ED.DYSGE1 ---
HPI History of Present Illness Chief Complaint: Dizziness Detail of Chief Complaint: Dizziness, bifrontal headache, nausea Informant: patient [facility] Medical History (Updated 06/02/25 @ 21:[address] Ferny Hanna MD) Thrombosed external hemorrhoid (spontaneous vaginal delivery) Autoimmune disease Gestational HTN FH: spina bifida Seasonal allergies Rheumatoid arthritis Hypothyroid Home Medications ?Medication ?Instructions ?Recorded ?Last Taken ?Type levothyroxine 50 mcg tablet 50 mcg PO DAILY #30 tabs 01/11/24 05/22/24 Rx (Euthyrox) drospirenone 3 mg-ethinyl 1 tab PO QDAY #84 tabs 09/23/24 Unknown Rx estradiol 0.02 mg tablet (HUNTER (28)) Hydrocortisone 2.5%/lidocaine 5% #30 ea 03/19/25 Unknown Rx suppository (cmpd) (hydrocortisone 2.5%/lidocaine 5% suppository (compound)) doxycycline hyclate 100 mg capsule 100 mg PO QDAY 03/19/25 Unknown History diazepam 2 mg tablet (Valium) 2 mg PO TID 3 days #9 tabs 06/02/25 Unknown Rx Allergy/AdvReac Type Severity Reaction Status Date / Time hydroxychloroquine (From Allergy Hives Verified 06/02/25 16:36 Plaquenil) Family History (Updated 03/19/25 @ 09:01 by Kadie Fermin) Father Heart disease Mother Crohn's disease Sister Colon cancer Surgical History H/O colonoscopy H/O dilation and curettage [place] teeth extracted Social History adopted: No household members: significant other number of children: 1 current occupational status: unemployed pets and animals: Yes (Not managing litterbox) pets and animals: cat(s) history of recent travel: No sexually active: Yes Smoking Status: Never smoker alcohol intake: never substance use type: does not use well-balanced diet: daily or most days caffeine: No eating out: 1-3 times/week during the past year weight has: remained stable what type of physical activity do you participate in: none pierce/restoration: Scientologist seatbelt use: always do you feel safe at home: Yes additional social history: [employer] EXAM Physical Exam Const Vital Signs: 06/02/25 16:36 06/02/25 18:51 06/02/25 20:26 Temperature 96.9 F L Temperature Source Temporal Pulse Rate 69 76 Pulse Rate [Lying] 62 Pulse Rate [Sitting (for 1 minute prior to obtaining)] 87 Pulse Rate [Standing (for 1 minute prior to obtaining)] 86 Respiratory Rate 18 15 Blood Pressure 135/96 H 124/89 H Blood Pressure [Lying] 118/71 Blood Pressure [Sitting (for 1 minute prior to obtaining)] 135/92 H Blood Pressure [Standing (for 1 minute prior to obtaining)] 125/97 H Blood Pressure Mean 109 100 Blood Pressure Mean [Lying] 86 Blood Pressure Mean [Sitting (for 1 minute prior to obtaining)] 106 Blood Pressure Mean [Standing (for 1 minute prior to obtaining)] 106 Pulse Ox 100 97 Oxygen Delivery Method Room Air Room Air [facility] MDM Lab Data Labs: Laboratory Results - last 24 hr 06/02/25 17:52 WBC 11.6 H RBC 4.97 Hgb 14.1 Hct 41.5 MCV 83.5 MCH 28.4 MCHC 34.0 RDW Std Deviation 37.3 RDW Coeff of Alexis 12.4 Plt Count 261 MPV 10.0 Immature Gran % (Auto) 0.300 Neut % (Auto) 60.9 Lymph % (Auto) 29.9 [place] % (Auto) 7.7 Eos % (Auto) 0.8 Baso % (Auto) 0.4 Absolute Neuts (auto) 7.1 Absolute Lymphs (auto) 3.46 Nucleated RBC % 0 ESR 7 Sodium 138 Potassium 3.6 Chloride 104 Carbon Dioxide 21.8 Anion Gap 13 BUN 14 Creatinine 0.80 Estim Creat Clear Calc 104.58 Est GFR (MDRD) Non-Af 102 BUN/Creatinine Ratio 18.0 Glucose 83 Calcium 9.4 Total Bilirubin 0.68 AST 21 ALT 12 Alkaline Phosphatase 80 Total Protein 7.6 Albumin 4.5 Globulin 3.1 Albumin/Globulin Ratio 1.4 Procalcitonin 0.03 Radiography Diagnostic Testing: Clinical Impression(s) from Imaging Studies Brain CT 06/02/25 18:06 IMPRESSION: Unremarkable head CT. Reading Location: [id number] Discharge Plan Triage Chief Complaint: Dizziness Other Complaint: Headache ED Provider: Ferny Hanna Dx/Rx/DC Orders Clinical Impression: Vertigo, Frontal headache, HTN (hypertension), Rheumatoid arthritis, Raynauds disease Instructions: ED BPV Vertigo, ED Dizziness, Uncertain Cause Prescriptions: New diazepam [Valium] 2 mg tablet 2 mg PO TID 3 Days Qty: 9 0RF No Action levothyroxine [Euthyrox] 50 mcg tablet 50 mcg PO DAILY Qty: 30 3RF drospirenone-ethinyl estradiol [HUNTER (28)] 3-0.02 mg tablet 1 tab PO QDAY Qty: 84 3RF Rx Instructions: start on 07/05 or after doxycycline hyclate 100 mg capsule 100 mg PO QDAY (DME) hydrocortisone 2.5%/lidocaine 5% suppository (compound) Suppository See Rx Instructions .ROUTE Qty: 30 2RF Rx Instructions: insert twice daily Primary Care Provider: Roshni Pedro Referrals: Roshni Pedro, [id number] [Primary Care Provider, Family Practice] - 3-5 Days if not improving Activity Restrictions/Additional Instructions: Return if you have difficulty walking, double vision or your headache worsens. Print Language: [place] Disposition Disposition: Home, Self Care
[2025-06-02 21:47] VITALS: BP 122/71; PULSE 76; RESP 15; TEMP 36.8; O2SAT 97
== END 2025-06-02 22:00 | disposition home or self-care (01) ==
PROVIDERS: Emergency Provider Emergency Medicine; PCP Nurse Practitioner Family; Visit Provider Emergency Medicine
DX: R42 Dizziness and giddiness (principal); M06.9 Rheumatoid arthritis, unspecified; R51.9 Headache, unspecified; I10 Essential (primary) hypertension; I73.00 Raynaud's syndrome without gangrene; E03.9 Hypothyroidism, unspecified
CPT/HCPCS: 70450; 80053; 84145; 85025; 85652; 99285; A4216

== ENCOUNTER → 2025-06-25 | Outpatient (CLI) | payer MEDICAID, SELFPAY | END | disposition home or self-care (01) | LOC: LABSPEC 11:57 | PROVIDERS: PCP Nurse Practitioner Family; Referring Provider Advanced Practice Midwife; Visit Provider Advanced Practice Midwife | DX: N89.8 Other specified noninflammatory disorders of vagina (principal) | CPT/HCPCS: 87070; 87205 ==